=== PATIENT | male | born 1950 | race Caucasian/White ===

== ENCOUNTER → 2016-11-12 | Day surgery (SDC) | payer MEDICARE ==
[2016-11-08 08:51] VITALS: BP 158/61
[~2016-11-12] VITALS: Ht 175.2 cm; Wt 102.1 kg
[~2016-11-12] MED LIST: ADVAIR 250/501 EA INH; ADVAIR DISKUS 11 DSK INH; ATARAX25 MG PO; BYDUREON PEN2 MG SC; CLARITIN10 MG PO; CRESTOR20 M1 PO; D3 PO; DAYPRO600 M1 PO; ESCITALOPRAM OX10 MG PO; FENOFIBRIC ACI105 MG PO; GEMFIBROZIL600 MG PO; GLIPIZIDE XL10 MG PO; GLIPIZIDE XL5 MG PO; GLIPIZIDE5 MG PO; HYDROCHLOROTHIA25 M1 PO; KEFLEX500 MG PO; LANTUS SOLOS100 U/M1 SC; LEVAQUIN750 MG PO; LISINOPRIL10 M1 PO; LOVASTATIN20 MG PO; MEDROL DOSEPAK4 MG PO; METFORMIN ER500 MG PO; METFORMIN1000 MG PO; METOPROLOL SUC100 M1 PO; METOPROLOL SUCC50 MG PO; NOVOLOG FLEX100 U/ML SC; PREDNISONE10 MG PO; PRINIVIL20 MG PO; PROAIR HFA0.09 MG/AC INH; PROAIR HFA8.5 GM INH; PROTONIX40 MG PO; ROBAXIN750 MG PO; ROSUVASTATIN CA40 MG PO; TAMSULOSIN HCL0.4 MG PO; TOUJEO300 U/ML SC; TRAD5TAB1 PO; TRAJENTA PO; TRULICITY1.5 MG/0.5 SC; VICODIN 500 MG-1 TAB PO; VICODIN ES 7501 TAB PO; VITAMIN D50000 I3 PO; ZANTAC 150150 MG PO; ZESTRIL30 M1 PO
--- NOTE | ~2016-11-12 | O ---
[place], [place] OPERATIVE NOTE NAME: THOR WARREN UNIT #: [id number] ROOM: DOCTOR: BUBBA MARION MD BIRTHDATE: [birth year] DOS: 11/12/2016 PREOPERATIVE DIAGNOSIS: Left cheek soft tissue mass. POSTOPERATIVE DIAGNOSIS: Left cheek soft tissue mass. PROCEDURE: Excision of left cheek soft tissue mass. SURGEON: Bubba Marion MD PHOTONICS TECHNICIAN: None. ANESTHESIA: MAC with local approximately 5 mL of 1% plain lidocaine with epinephrine. INDICATIONS: This is a 66-year-old gentleman with a left cheek soft tissue mass, who is here for the above-mentioned procedure. The procedure and its complications were explained to the patient in detail preoperatively. Complications that were discussed included, but were not limited to bleeding and infection. He agreed to proceed. DESCRIPTION OF PROCEDURE: After identifying the patient, the patient was brought to the operating suite and laid in the supine position. After the parts were painted and draped in the usual sterile fashion, IV sedation was administered by the anesthesia team and an elliptical incision was marked in the long axis of the mass. Local anesthesia was injected and the mass was excised in its entirety with the help of a knife and sent for histopathological diagnosis. Hemostasis was achieved with the help of pressure and after hemostasis was confirmed, the edges of the subcutaneous tissue/skin were approximated with the help of 4-0 Vicryl in a subcuticular fashion. A dressing was placed. The patient tolerated the procedure well and was taken to the recovery room in stable fashion. There were no complications. Dr. Bubba Marion, the attending surgeon, was present throughout the operating case. [place], [place] OPERATIVE NOTE NAME: THOR WARREN UNIT #: [id number] ROOM: DOCTOR: BUBBA MARION MD BIRTHDATE: [birth year] Bubba Marion MD CM:OPRECORD:OPERATIVE NOTE [id number] BUBBA MARION MD 11/12/16 0852 interface
[2016-11-12 07:35] VITALS: BP 162/92
[2016-11-12 08:02] VITALS: BP 132/84
[2016-11-12 08:15] VITALS: BP 113/80
[2016-11-12 08:42] VITALS: BP 132/78
== END | disposition home or self-care (01) ==
LOC: SDC 11-08 08:45
DX: L82.1 Other seborrheic keratosis (principal); E78.00 Pure hypercholesterolemia, unspecified; J45.909 Unspecified asthma, uncomplicated; I12.9 Hypertensive chronic kidney disease with stage 1 through stage 4 chronic kidney disease, or unspecified chronic kidney disease; E11.22 Type 2 diabetes mellitus with diabetic chronic kidney disease; N18.3 Chronic kidney disease, stage 3 (moderate); Z79.4 Long term (current) use of insulin; Z83.3 Family history of diabetes mellitus; Z82.49 Family history of ischemic heart disease and other diseases of the circulatory system

== ENCOUNTER → 2016-11-14 | Outpatient (CLI) | payer MEDICARE | END | disposition home or self-care (01) | LOC: CT 07:34 | DX: J44.9 Chronic obstructive pulmonary disease, unspecified (principal); R91.1 Solitary pulmonary nodule; R05 Cough; R06.02 Shortness of breath ==

== ENCOUNTER → 2016-11-30 | Outpatient (CLI) | payer MEDICARE ==
[2016-11-30 12:20] LABS: BASO # 0.1 10*3/uL (0.0-0.1); EOS # 0.3 10*3/uL (0.0-0.4); HEMATOCRIT 39.5 % (42.0-52.0); HEMOGLOBIN 13.3 g/dl (14.0-18.0); IG # 0.1 10*3/uL (0.0-0.1); LYMPH # 2.4 10*3/uL (1.3-4.4); LYMPH % 21.5 % (27.0-41.0); MEAN CELL VOLUME 92.3 fl (80.0-94.0); MEAN CORPUSCULAR HGB 31.1 pg (27.0-31.0); MEAN CORPUSCULAR HGB CONC 33.7 g/dl (33.0-37.0); MEAN PLATELET VOLUME 9.2 fl (9.6-12.3); MONO % 8.8 % (3.0-9.0); NEUT # 7.4 10*3/uL (2.3-7.9); NEUT % 65.3 % (47.0-73.0); PLATELET COUNT AUTOMATED 316 10*3/uL (130-400); RED BLOOD COUNT 4.28 10*6/uL (4.50-5.90); RED CELL DISTRI WIDTH 12.4 % (0-14.5); WHITE BLOOD COUNT 11.4 10*3/uL (4.8-10.8)
[2016-11-30 12:27] LABS: ALBUMIN 3.5 gm/dl (3.1-4.5); BILIRUBIN, TOTAL 0.2 mg/dl (0.2-1.0); MAGNESIUM 1.8 mg/dL (1.5-2.1); PHOSPHOROUS 2.8 mg/dL (2.5-4.9); POTASSIUM 4.4 mmol/L (3.5-5.1); TOTAL PROTEIN 6.9 gm/dL (6.4-8.2)
[2016-11-30 13:07] LABS: FERRITIN 55.9 ng/mL (22.0-322.0); PTH INTACT 13.1 pg/mL (14.0-72.0)
== END | disposition home or self-care (01) ==
LOC: LAB 11:32
PROVIDERS: Internal Medicine Nephrology
DX: I12.9 Hypertensive chronic kidney disease with stage 1 through stage 4 chronic kidney disease, or unspecified chronic kidney disease (principal); E11.22 Type 2 diabetes mellitus with diabetic chronic kidney disease; E11.65 Type 2 diabetes mellitus with hyperglycemia; N18.3 Chronic kidney disease, stage 3 (moderate); D63.1 Anemia in chronic kidney disease

== ENCOUNTER → 2016-12-17 | Outpatient (CLI) | payer MEDICARE | END | disposition home or self-care (01) | LOC: RAD 17:07 | DX: J44.9 Chronic obstructive pulmonary disease, unspecified (principal); R06.02 Shortness of breath; R05 Cough ==

== ENCOUNTER 2016-12-27 21:39 | Inpatient (IN) | payer MEDICARE ==
[~2016-12-27] VITALS: Ht 175.3 cm; Wt 101.6 kg
--- NOTE | ~2016-12-27 | PR ---
[place], [place] PROGRESS NOTE NAME: THOR WARREN UNIT #: [id number] ROOM: 415 DOCTOR: KRISTINE MÁRQUEZ MD,MARLENE BIRTHDATE: [birth year] DOS: 01/03/2017 PULMONARY PROGRESS SUBJECTIVE: He has a bronchoscopy done yesterday with marked improvement in the respiratory symptom noted with resolution of the cough significantly, acute wheezing was noted absent. Shortness of breath has been improving. OBJECTIVE: VITAL SIGNS: Showed normal temperature, respiratory rate 18, heart rate 107, blood pressure 152/85-153/88. The pulse oxygen saturation of the patient on 2 liters nasal cannula 98% saturation. HEENT: Examination shows no new change. NECK: Supple. CARDIOVASCULAR SYSTEM: S1, S2 is audible. LUNGS: The patient was noted without any wheezing or crackles at the present time. ABDOMEN: Soft and nontender. LABORATORY DATA: CBC this morning: WBC 23.4, hemoglobin 13.3, hematocrit 39.1, platelet count normal. WBC count normal. BMP: BUN 50, creatinine 1.82. The culture of the bronchial washing shows moderate growth of gram-positive cocci. The Gram stain shows moderate white blood cells with many gram-positive cocci in pairs and chains with few gram-negative bacilli. The patient who has been currently noted with isolation of moderate gram-positive cocci. IMPRESSION: The patient with acute exacerbation of chronic obstructive pulmonary disease. The patient with acute tracheobronchitis, leukocytosis, rule out methicillin-resistant Staphylococcus aureus for this patient versus streptococcal pneumonia isolation with current bronchial washing; however, improvement in symptoms has been noted after bronchoscopy. PLAN OF TREATMENT: The patient will be started on IV vancomycin for the patient because of the current cultures. Initially, he was planned for possible discharge home for this patient, which will be hold off for this patient because of current new culture results, which has been updated by the microbiology lab. We assessed the CBC in the morning. Reduction of the Solu-Medrol dose for this patient as well. Usual care. All other supportive plan of management and other care. Bronchodilators. Continuation of the Bactrim DS, which has been given for the patient previously for the Staph aureus, which was isolated light growth. [place], [place] PROGRESS NOTE NAME: THOR WARREN UNIT #: [id number] ROOM: [facility] DOCTOR: MARLENE NORMAN MD BIRTHDATE: [birth year] MARLENE CARMONA MD CM:PNTRANS [phone] [id number] MARLENE MÁRQUEZ MD 01/03/172223 interface
--- NOTE | ~2016-12-27 | CON ---
[place], [place] REPORT OF CONSULTATION NAME: THOR WARREN UNIT #: [id number] ROOM: 415 DOCTOR: MARLENE NORMAN MD BIRTHDATE: [birth year] DOS: 12/31/2016 CONSULTATION REQUESTED BY: Hospitalist Services. REASON FOR CONSULTATION: Assessment of COPD. HISTORY OF PRESENT ILLNESS: A 66-year-old white male who has been hospitalized since 12/27/2016 in this hospital. The patient presented to the Emergency Room, reported with having symptoms of increased shortness of breath associated significant cough. The symptoms have been present for 3 months or greater, but noted with further worsening for the patient in few days prior to assessment in the Emergency Room. Coughing has been noted mostly nonproductive. The patient was reported symptoms of wheezing. The patient does have only small amount of sputum expectoration at times with that. Wheezing of the patient was also noted significantly severe. He was noted tightness in the chest as well. Shortness of breath occurs with exertional activities. The patient denies any symptoms of hemoptysis with that. Denies any chest trauma. REVIEW OF SYSTEMS: CONSTITUTIONAL: Complain of fatigue and tiredness. There were no symptoms of fever or chills. EYES: Denies any burning, redness, or tenderness. EARS, NOSE, THROAT SYMPTOMS: No sore throat, hoarseness, otalgia, postnasal drainage. CARDIOVASCULAR: Denies anginal pain, edema of the lower extremities or palpitations or syncopal episodes. GASTROINTESTINAL: Dysphagia, nausea, vomiting, diarrhea, abdominal pain, hematemesis, melena, hematochezia. SKIN: Denies lesions or rashes. CENTRAL NERVOUS SYSTEM: Denies symptoms of dizziness, headache, diplopia or seizures. Remaining systems were reviewed with the patient, they were noted all negative. PAST MEDICAL HISTORY: 1. Has been reported for COPD managed by another sagger maker in [place], [place]. 2. History of chronic kidney disease. 3. Essential hypertension. 4. Hyperlipidemia. 5. Type 2 diabetes mellitus. 6. History of obesity. PAST SURGICAL HISTORY: 1. Hernia repair. 2. Surgery of the colon. Details were not clearly known by the patient. SOCIAL HISTORY: The patient was noted nonsmoker lifetime. Denies history of alcohol use, illicit drug use for this patient as well or any occupation related pulmonary exposure. FAMILY HISTORY: The patient's both parents have been . Father at [place], [place] REPORT OF CONSULTATION NAME: THOR WARREN UNIT #: [id number] ROOM: [facility] DOCTOR: MARLENE NORMAN MD BIRTHDATE: [birth year] the age of [age] years old from unknown medical illnesses. The mother at the age of 60+ years old from acute myocardial infarction. HOME MEDICATIONS: Noted. 1. ProAir HFA inhaler p.r.n. use. 2. Norvasc 10 mg. 3. Benazepril 20 mg once a day. 4. Vitamin D 5000 international units daily. 5. Lexapro for this patient 10 mg daily. 6. Fenofibric acid 105 mg p.o. daily. 7. Advair 100/50 one puff daily. 8. Gemfibrozil 600 mg p.o. daily. 9. Glipizide 5 mg p.o. b.i.d. 10. Lisinopril 10 mg daily. 11. Metoprolol succinate 100 mg p.o. daily. 12. Protonix 40 mg daily. 13. Lipitor 40 mg daily. 14. Flomax 0.4 mg daily. DRUG ALLERGIES: The patient noted as allergy to the IODINE. PHYSICAL EXAMINATION: GENERAL: This is a 66-year-old white male who has been noted currently awake and alert without any distress at time of the assessment. VITAL SIGNS: Height is noted 5 feet 9 inches, weight of 224 pounds. Vital signs shows a normal temperature, respiratory rate 20-16, heart rate of 91-102, blood pressure is 153/96 144/90. The pulse oxygen saturation for the patient recorded on 2 liters nasal cannula 95% saturation. HEENT: Examination shows head is atraumatic. Eyes nonicterus. NECK: Supple. CARDIOVASCULAR: S1, S2 audible. LUNGS: Noted with diffuse expiratory wheezing moderately. There are no crackles. ABDOMEN: Soft, nontender. Bowel sounds present. CENTRAL NERVOUS SYSTEM: The patient is noted without any gross focal deficit. Cranial nerves 2 through 12 intact. SKIN: No lesions or rashes. MUSCULOSKELETAL: No acute deformities. LABORATORY DATA: The alpha 1 antitrypsin level of the patient was noted as 140. The phenotype of the patient was unknown. Histoplasma antigen was noted negative, which was done as an outpatient. CBC of the patient on 12/27/2016 for the patient noted as WBC count 15.3, hemoglobin 13.2, hematocrit 39.5, platelet count was normal. Lactic acid noted 3.9 on admission, 12/27/2016. On 12/27/2016, PT, PTT was normal. CMP on 12/27/2016, the patient noted glucose 228, BUN 23, creatinine 1.88 for this patient on admission. The followup lactic acid was noted as 2.4. CBC that was repeated for the patient on 12/29/2016 showed WBC count 18.8, hemoglobin 12.7, hematocrit of 38.6, platelet count was normal. BMP of the patient, BUN 29, creatinine 1.59, glucose 232. Blood culture from 12/27/2016 for the patient to assess the patient was reported as no [place], [place] REPORT OF CONSULTATION NAME: THOR WARREN UNIT #: [id number] ROOM: [facility] DOCTOR: KRISTINE MÁRQUEZ [facility] BIRTHDATE: [birth year] bacterial growth. Final culture results were pending. CBC of the patient on 12/30/2016 showed WBC count 16.6, hemoglobin 13.2, hematocrit 40.6, platelet count for the patient was noted as normal. The CMP of the patient on 12/30/2016, BUN 33, creatinine 1.63, glucose 267. Culture of the sputum on 12/29/2016, the patient shows Staph aureus isolation only light growth. CMP of the patient this morning, BUN 39, creatinine 1.64, glucose 194. CBC this morning, WBC count 17.7, 92% segmented neutrophils noted differential, normal hemoglobin and hematocrit and platelet count. IMPRESSION: 1. The patient who has been currently admitted to the hospital noted with acute severe tracheobronchitis with chronic symptom and acute worsening at this time with the Staph aureus isolated with possible colonization was due to infection has been considered. 2. The patient's signs of acute sepsis noted. The patient's lactic acidosis on admission most likely secondary to acute bronchitis. There were no other source of infection is known. Blood culture was noted negative. 3. Persistent symptoms of coughing, wheezing noted with current maximum therapy for the past 4 days for this patient of treatment with the use of corticosteroids, bronchodilators, and other treatment of the patient was noted in progress. 4. History of diabetes mellitus of the patient was noted as well and other medical illnesses. PLAN OF TREATMENT: The patient was recommended the fiberoptic bronchoscopy for further assessment because the mucous infection is considered very likely for this patient because of chronic symptoms were recurrent with acute exacerbation. Risk and benefits of the procedure have been discussed with the patient. Based on the availability of the schedule in the OR, the procedure was scheduled to be done on Saturday. The patient will be made n.p.o. past midnight for bronchoscopy from Saturday midnight. Other treatment therapy, plan of management including steroids and all other treatment will be continued as well in progress. Supportive care and other therapies. Thanks for allowing me to participate in the care of this patient. MARLENE CARMONA MD CM:CONSTR:REPORT OF CONSULTATION 1157 01/01/17 0219 interface
--- NOTE | ~2016-12-27 | EKG ---
[place], [place] ELECTROCARDIOGRAM REPORT NAME: THOR WARREN UNIT #: [id number] ROOM: 415 DOCTOR: RANJAN VAZQUEZ MD BIRTHDATE: [birth year] DOS: 12/27/2016 TIME: 2213. FINDINGS: Sinus tachycardia with rate of 123. Left ventricular hypertrophy with secondary ST changes, leftward axis. Abnormal electrocardiogram. RANJAN VAZQUEZ MD CM:EKGRPT:ELECTROCARDIOGRAM REPORT [id number] RANJAN VAZQUEZ MD
--- NOTE | ~2016-12-27 | PR ---
[place], [place] PROGRESS NOTE NAME: THOR WARREN UNIT #: [id number] ROOM: 415 DOCTOR: KRISTINE MÁRQUEZ MD,MARLENE BIRTHDATE: [birth year] DOS: 01/02/2017 PULMONARY PROGRESS NOTE SUBJECTIVE: The patient has been noted comfortable at the present time without any changes in the respiratory status. Coughing has been noted severe which is nonproductive. The patient stated that he had a horrible night last night because of severe coughing, inability to expectorate sputum. Denies symptoms of chest pain or any abdominal pain. Shortness of breath, wheezing was still described intermittently. OBJECTIVE: VITAL SIGNS: Shows normal temperature, respiratory rate 18, heart rate of 87, blood pressure 127/59. The pulse oxygen saturation recorded on 2 liters nasal cannula 99% saturation. HEENT: No acute change. NECK: Supple. CARDIOVASCULAR: S1, S2 audible. LUNGS: The patient was noted with expiratory wheezing with moderate reduction in breath sounds bilaterally. ABDOMEN: Soft, nontender. EXTREMITIES: Show no edema. LABORATORY DATA: There were no labs done today. IMPRESSION: Ongoing acute exacerbation of chronic obstructive pulmonary disease, remains symptomatic with severe nonproductive cough. For bronchoscopy today, patient already noted n.p.o. for bronchoscopy. PLAN OF TREATMENT: Bronchoscopy will be done for the patient, any changes and modification in treatment if necessary will be done after bronchoscopy. Otherwise, all the previous treatment to be continued as well. MARLENE CARMONA MD CM:PNTRANS 1105 MARLENE MÁRQUEZ MD 01/03/17 0048 interface
--- NOTE | ~2016-12-27 | PR ---
[place], [place] PROGRESS NOTE NAME: THOR WARREN UNIT #: [id number] ROOM: 415 DOCTOR: KRISTINE MÁRQUEZ MD,MARLENE BIRTHDATE: [birth year] DOS: 01/01/2017 SUBJECTIVE: He continued with similar symptoms of nonproductive cough with wheezing and shortness of breath with exertion. The patient did fell in his room this morning as well. Denies any acute injury for this patient to the bones. He was noted awake and alert this morning at the time of the assessment. OBJECTIVE: VITAL SIGNS: Normal temperature, respiratory rate 20, heart rate 105, blood pressure 151/87. The pulse oxygen saturation for the patient recorded on 2 L nasal cannula 94% saturation. HEENT: Showed no new change. NECK: Supple. CARDIOVASCULAR: S1, S2 audible. LUNGS: Decreased breath sounds in the lungs bilaterally, expiratory wheezing. ABDOMEN: Soft, nontender. LABORATORY DATA: The patient's CBC today: WBC count 17.8. Remaining CBC normal, 92% segmented neutrophils noted on differential. BMP today: BUN 41, creatinine 1.58, glucose 190. IMPRESSION: The patient who has been currently treated for acute exacerbation of chronic obstructive pulmonary disease, acute tracheobronchitis at this time, status post fall for the patient without any known significant injury. PLAN OF TREATMENT: Bronchoscopy was planned to be done in the morning. The other previous treatment plan to be continued previously in progress. Usual care. All other supportive therapy, plan of management. MARLENE CARMONA MD CM:PNTRANS [id number] MARLENE MÁRQUEZ MD 01/02/17 0620 interface
--- NOTE | ~2016-12-27 | PR ---
[place], [place] PROGRESS NOTE NAME: THOR WARREN UNIT #: [id number] ROOM: 415 DOCTOR: MARLENE NORMAN MD BIRTHDATE: [birth year] DOS: 01/04/2017 PULMONARY PROGRESS NOTE SUBJECTIVE: He continues to have progressive resolution of the cough. The patient was started on vancomycin yesterday for the gram-positive cocci isolation, which has been finally confirmed to be Staph aureus, which is MSSA species. It was noted sensitive to several antibiotics including doxycycline. OBJECTIVE: VITAL SIGNS: For the patient which were recorded showed normal temperature, respiratory rate 18, heart rate of 108, blood pressure 152/80. Intake for the patient recorded as 1999, the output was not recorded. Pulse oxygen saturation on room air 96% saturation noted. HEENT: No new change. NECK: Supple. CARDIOVASCULAR: S1, S2 audible. LUNGS: The patient was noted without any wheezing or crackles at the present time. Breath sounds were noted mildly decreased bilaterally. ABDOMEN: Soft, nontender. LABORATORY DATA: CBC today: WBC count 20.3, hemoglobin and hematocrit were normal. Platelet count normal. The differential showed 13% monocytes, 25% lymphocytes. BMP this morning noted BUN 45, creatinine 1.73. IMPRESSION: Staphylococcus aureus tracheobronchitis with leukocytosis, acute exacerbation of chronic obstructive pulmonary disease, responding to the treatment. PLAN OF TREATMENT: The patient will be started on doxycycline orally. After taking the first dose, if tolerated, he could be discharged home on doxycycline orally as well as tapering dose of prednisone, outpatient followup will be done. Other previous treatment to be continued as well. Usual care. All other supportive therapy, plan of management and care. [place], [place] PROGRESS NOTE NAME: THOR WARREN UNIT #: [id number] ROOM: 415 DOCTOR: MARLENE NORMAN MD BIRTHDATE: [birth year] MARLENE CARMONA MD CM:PNTRANS [phone] MARLENE MÁRQUEZ MD 01/05/17 0258 interface
--- NOTE | ~2016-12-27 | PROC NOTE ---
[place], [place] PROCEDURE NOTE NAME: THOR WARREN UNIT #: [id number] ROOM: 415 DOCTOR: KRISTINE MÁRQUEZ MD,MARLENE BIRTHDATE: [birth year] DOS: 01/02/2017 PROCEDURE: Bronchoscopy. PREOPERATIVE DIAGNOSIS: Severe nonproductive cough, nonresolving. POSTOPERATIVE DIAGNOSES: Severe mucus plugs of the patient causing impaction of the endobronchial tree bilaterally, cleared up. Findings consistent with acute tracheobronchitis. PROCEDURE DESCRIPTION: Informed consent obtained. The patient brought to the OR and placed in supine position. Conscious sedation administered by the Anesthesia Department. After achieving appropriate sedation, airway introduced into the mouth. Bronchoscope advanced into the airway into laryngeal area. Epiglottis and vocal cords were seen. Vocal cords were noted yellowish in color moving symmetrically with the movements. Bronchoscope advanced to the vocal cord and tracheal lumen, which shows very thick mucoid secretion mixed with some purulent secretions suctioned out to the latanya level. Latanya noted sharp. Right upper, right middle, right lower, left upper, lingular lower lobe bronchi were all noted with impaction of very thick mucus plugs for this patient, which were cleared up with the help of normal saline wash. Bronchial washing of the patient was sent for all the appropriate cultures. The endobronchial tree was noted clear of any secretions after the completion of bronchoscopy. There were no complications noted during or after procedure. Postoperative findings will be discussed with the patient once the patient recovers the effects of acute sedation. MARLENE CARMONA MD CM:PROCNOTE:PROCEDURE NOTE 1108 [id number] MARLENE MÁRQUEZ MD
[2016-12-27 21:48] VITALS: BP 123/80
[2016-12-27] MEDS ORDERED: VITAMIN D34000 UNIT PO (21:50)
[2016-12-27] MEDS ORDERED: AMLODIPINE BES1 CAP PO (21:51)
[2016-12-27 22:23] LABS: BASO # 0.1 10*3/uL (0.0-0.1); BASO % 0.4 % (0.0-1.0); EOS % 0.1 % (1.0-4.0); HEMATOCRIT 39.5 % (42.0-52.0); HEMOGLOBIN 13.2 g/dl (14.0-18.0); IG # 0.1 10*3/uL (0.0-0.1); LYMPH # 2.2 10*3/uL (1.3-4.4); LYMPH % 14.3 % (27.0-41.0); MEAN CELL VOLUME 90.8 fl (80.0-94.0); MEAN CORPUSCULAR HGB 30.3 pg (27.0-31.0); MEAN CORPUSCULAR HGB CONC 33.4 g/dl (33.0-37.0); MEAN PLATELET VOLUME 9.3 fl (9.6-12.3); MONO # 1.1 10*3/uL (0.1-1.0); MONO % 7.1 % (3.0-9.0); NEUT # 11.8 10*3/uL (2.3-7.9); NEUT % 77.3 % (47.0-73.0); PLATELET COUNT AUTOMATED 370 10*3/uL (130-400); RED BLOOD COUNT 4.35 10*6/uL (4.50-5.90); RED CELL DISTRI WIDTH 12.8 % (0-14.5); WHITE BLOOD COUNT 15.3 10*3/uL (4.8-10.8)
[2016-12-27 22:34] LABS: INTERNATIONAL NORM RATIO 1.1 (2.0-3.5); PROTHROMBIN TIME 11.7 SECONDS (9.0-12.4)
[2016-12-27 22:42] LABS: ALBUMIN 3.6 gm/dl (3.1-4.5); ALKALINE PHOSPHATASE 60 U/L (45-117); BILIRUBIN, TOTAL 0.3 mg/dl (0.2-1.0); BUN 23 mg/dl (7-24); CARBON DIOXIDE 24 mmol/L (21-32); CHLORIDE 106 mmol/L (98-107); EST GLOM FILT AFRICAN AMERICAN 44 ml/min; GLUCOSE 228 mg/dL (65-99); MAGNESIUM 1.4 mg/dL (1.5-2.1); POTASSIUM 4.1 mmol/L (3.5-5.1); SGOT/AST 18 IU/L (3-35); SGPT/ALT 39 U/L (12-78); SODIUM 140 mmol/L (136-145); TOTAL PROTEIN 7.5 gm/dL (6.4-8.2)
[2016-12-27 22:47] LABS: TROPONIN I < 0.015 ng/ml (<0.045)
[2016-12-27 23:36] VITALS: BP 140/85
[2016-12-28 00:20] LABS: LA>2 REFLEX 2 HR DRAW NOW
[2016-12-28 00:30] VITALS: BP 166/81
[2016-12-28 00:42] LABS: LA>2 RFLX FOLLOW UP AT 2 HRS 2.4 mmol/L (0.4-2.0)
[2016-12-28] MEDS ORDERED: BENZONATATE100 M1 PO (02:12)
[2016-12-28] MEDS ORDERED: DUONEB 3 MG/3 ML3 M1 INH (02:15)
[2016-12-28 02:33] LABS: LA>2 REFLEX 4 HR DRAW NOW
[2016-12-28 06:25] LABS: HEMATOCRIT 37.4 % (42.0-52.0); HEMOGLOBIN 12.4 g/dl (14.0-18.0); MEAN CELL VOLUME 91.4 fl (80.0-94.0); MEAN CORPUSCULAR HGB 30.3 pg (27.0-31.0); MEAN CORPUSCULAR HGB CONC 33.2 g/dl (33.0-37.0); MEAN PLATELET VOLUME 9.5 fl (9.6-12.3); PLATELET COUNT AUTOMATED 325 10*3/uL (130-400); RED BLOOD COUNT 4.09 10*6/uL (4.50-5.90); RED CELL DISTRI WIDTH 12.9 % (0-14.5); WHITE BLOOD COUNT 15.2 10*3/uL (4.8-10.8)
[2016-12-28 06:57] LABS: INTERNATIONAL NORM RATIO 1.1 (2.0-3.5)
[2016-12-28 07:07] LABS: ALBUMIN 3.4 gm/dl (3.1-4.5); BILIRUBIN, TOTAL 0.3 mg/dl (0.2-1.0); MAGNESIUM 1.5 mg/dL (1.5-2.1); PHOSPHOROUS 1.9 mg/dL (2.5-4.9); POTASSIUM 4.2 mmol/L (3.5-5.1); TOTAL PROTEIN 7.1 gm/dL (6.4-8.2)
[2016-12-28 07:13] LABS: LYMPHOCYTE # 0.8 10*3/uL (1.3-4.4); NEUTROPHIL # 14.4 10*3/uL (2.3-7.9); NEUTROPHILS 95 % (47-73); TOTAL CELLS COUNTED 100 #CELLS
[2016-12-28 07:14] LABS: FREE T4 0.94 ng/dl (0.76-1.46); PLATELET SUFFICIENCY NORMAL (NORMAL); THYROID STIM HORMONE (HS) 0.57 uIU/ml (0.358-4.75)
[2016-12-28 08:00] VITALS: BP 154/85
[2016-12-28 12:00] VITALS: BP 174/88
[2016-12-28 16:00] VITALS: BP 118/68; BP 167/88
[2016-12-28 20:00] VITALS: BP 172/98
[2016-12-29] VITALS: BP 170/77
[2016-12-29 06:59] LABS: BASO % 0.2 % (0.0-1.0); HEMATOCRIT 38.6 % (42.0-52.0); HEMOGLOBIN 12.7 g/dl (14.0-18.0); IG # 0.2 10*3/uL (0.0-0.1); LYMPH # 1.5 10*3/uL (1.3-4.4); LYMPH % 7.8 % (27.0-41.0); MEAN CELL VOLUME 94.1 fl (80.0-94.0); MEAN CORPUSCULAR HGB CONC 32.9 g/dl (33.0-37.0); MEAN PLATELET VOLUME 9.4 fl (9.6-12.3); MONO # 0.6 10*3/uL (0.1-1.0); MONO % 3.4 % (3.0-9.0); NEUT # 16.5 10*3/uL (2.3-7.9); NEUT % 87.5 % (47.0-73.0); PLATELET COUNT AUTOMATED 349 10*3/uL (130-400); WHITE BLOOD COUNT 18.8 10*3/uL (4.8-10.8)
[2016-12-29 07:36] LABS: POTASSIUM 4.7 mmol/L (3.5-5.1)
[2016-12-29 08:00] VITALS: BP 166/93
[2016-12-29 12:00] VITALS: BP 139/90
[2016-12-29 16:00] VITALS: BP 155/84
[2016-12-29 20:42] VITALS: BP 148/68
[2016-12-29 23:49] VITALS: BP 148/64
[2016-12-30] VITALS (7 sets, daily range): BP systolic 136–188; BP diastolic 73–108
[2016-12-30 06:28] LABS: BASO % 0.2 % (0.0-1.0); HEMATOCRIT 40.6 % (42.0-52.0); HEMOGLOBIN 13.2 g/dl (14.0-18.0); IG # 0.3 10*3/uL (0.0-0.1); LYMPH # 1.2 10*3/uL (1.3-4.4); LYMPH % 7.1 % (27.0-41.0); MEAN CELL VOLUME 93.1 fl (80.0-94.0); MEAN CORPUSCULAR HGB 30.3 pg (27.0-31.0); MEAN CORPUSCULAR HGB CONC 32.5 g/dl (33.0-37.0); MEAN PLATELET VOLUME 9.6 fl (9.6-12.3); MONO # 0.4 10*3/uL (0.1-1.0); MONO % 2.4 % (3.0-9.0); NEUT # 14.7 10*3/uL (2.3-7.9); NEUT % 88.7 % (47.0-73.0); PLATELET COUNT AUTOMATED 355 10*3/uL (130-400); RED BLOOD COUNT 4.36 10*6/uL (4.50-5.90); RED CELL DISTRI WIDTH 12.8 % (0-14.5); WHITE BLOOD COUNT 16.6 10*3/uL (4.8-10.8)
[2016-12-30 07:00] LABS: ALBUMIN 3.5 gm/dl (3.1-4.5); POTASSIUM 4.9 mmol/L (3.5-5.1)
[2016-12-30 07:05] LABS: BILIRUBIN, TOTAL 0.3 mg/dl (0.2-1.0); TOTAL PROTEIN 7.2 gm/dL (6.4-8.2)
[2016-12-31 00:30] VITALS: BP 168/88
[2016-12-31 05:00] VITALS: BP 144/90
[2016-12-31 06:09] LABS: HEMATOCRIT 42.6 % (42.0-52.0); HEMOGLOBIN 14.2 g/dl (14.0-18.0); MEAN CELL VOLUME 91.6 fl (80.0-94.0); MEAN CORPUSCULAR HGB 30.5 pg (27.0-31.0); MEAN CORPUSCULAR HGB CONC 33.3 g/dl (33.0-37.0); MEAN PLATELET VOLUME 9.6 fl (9.6-12.3); PLATELET COUNT AUTOMATED 389 10*3/uL (130-400); RED BLOOD COUNT 4.65 10*6/uL (4.50-5.90); RED CELL DISTRI WIDTH 12.7 % (0-14.5); WHITE BLOOD COUNT 17.7 10*3/uL (4.8-10.8)
[2016-12-31 06:40] LABS: POTASSIUM 5.1 mmol/L (3.5-5.1)
[2016-12-31 06:47] LABS: ALBUMIN 3.6 gm/dl (3.1-4.5); BILIRUBIN, TOTAL 0.4 mg/dl (0.2-1.0); TOTAL PROTEIN 7.1 gm/dL (6.4-8.2)
[2016-12-31 06:51] LABS: LYMPHOCYTE # 1.1 10*3/uL (1.3-4.4); MONOCYTE # 0.4 10*3/uL (0.1-1.0); NEUTROPHIL # 16.3 10*3/uL (2.3-7.9); NEUTROPHILS 92 % (47-73); TOTAL CELLS COUNTED 100 #CELLS
[2016-12-31 06:53] LABS: PLATELET SUFFICIENCY NORMAL (NORMAL)
[2016-12-31 08:00] VITALS: BP 153/96
[2016-12-31 12:00] VITALS: BP 141/85
[2016-12-31 16:00] VITALS: BP 140/86
[2016-12-31 20:00] VITALS: BP 162/95
[2017-01-01 00:38] VITALS: BP 142/92
[2017-01-01 04:00] VITALS: BP 126/91
[2017-01-01 05:58] LABS: ALBUMIN 3.2 gm/dl (3.1-4.5); POTASSIUM 4.6 mmol/L (3.5-5.1)
[2017-01-01 06:17] LABS: HEMOGLOBIN 14.2 g/dl (14.0-18.0); MEAN CELL VOLUME 90.7 fl (80.0-94.0); MEAN CORPUSCULAR HGB 30.7 pg (27.0-31.0); MEAN CORPUSCULAR HGB CONC 33.8 g/dl (33.0-37.0); MEAN PLATELET VOLUME 9.5 fl (9.6-12.3); PLATELET COUNT AUTOMATED 387 10*3/uL (130-400); RED BLOOD COUNT 4.63 10*6/uL (4.50-5.90); RED CELL DISTRI WIDTH 12.2 % (0-14.5); WHITE BLOOD COUNT 17.8 10*3/uL (4.8-10.8)
[2017-01-01 07:01] LABS: LYMPHOCYTE # 0.7 10*3/uL (1.3-4.4); METAMYELOCYTES 1 % (0-0); MONOCYTE # 0.5 10*3/uL (0.1-1.0); NEUTROPHIL # 16.4 10*3/uL (2.3-7.9); NEUTROPHILS 92 % (47-73); TOTAL CELLS COUNTED 100 #CELLS
[2017-01-01 07:02] LABS: PLATELET SUFFICIENCY NORMAL (NORMAL)
[2017-01-01 08:00] VITALS: BP 151/87
[2017-01-01 12:00] VITALS: BP 150/91
[2017-01-01 15:55] VITALS: BP 160/91
[2017-01-01 20:00] VITALS: BP 152/79
[2017-01-02] VITALS (9 sets, daily range): BP systolic 118–160; BP diastolic 75–97
[2017-01-03] VITALS: BP 150/100
[2017-01-03 01:21] VITALS: BP 142/84
[2017-01-03 05:59] LABS: POTASSIUM 4.4 mmol/L (3.5-5.1)
[2017-01-03 06:03] LABS: HEMATOCRIT 39.1 % (42.0-52.0); HEMOGLOBIN 13.3 g/dl (14.0-18.0); MEAN CELL VOLUME 89.7 fl (80.0-94.0); MEAN CORPUSCULAR HGB 30.5 pg (27.0-31.0); MEAN PLATELET VOLUME 9.9 fl (9.6-12.3); PLATELET COUNT AUTOMATED 296 10*3/uL (130-400); RED BLOOD COUNT 4.36 10*6/uL (4.50-5.90); RED CELL DISTRI WIDTH 12.2 % (0-14.5); WHITE BLOOD COUNT 23.4 10*3/uL (4.8-10.8)
[2017-01-03 07:04] LABS: LYMPHOCYTE # 3.3 10*3/uL (1.3-4.4); MONOCYTE # 1.6 10*3/uL (0.1-1.0); NEUTROPHIL # 18.5 10*3/uL (2.3-7.9); NEUTROPHILS 79 % (47-73); TOTAL CELLS COUNTED 100 #CELLS
[2017-01-03 07:05] LABS: PLATELET SUFFICIENCY NORMAL (NORMAL)
[2017-01-03 08:00] VITALS: BP 153/88
[2017-01-03 12:00] VITALS: BP 152/85
[2017-01-03 16:00] VITALS: BP 145/90
[2017-01-03 18:10] LABS: ACID FAST SPEC PROCESSING Concentration (.)
[2017-01-03 20:00] VITALS: BP 152/78
[2017-01-04] VITALS: BP 153/84
[2017-01-04 05:43] LABS: POTASSIUM 4.6 mmol/L (3.5-5.1)
[2017-01-04 05:52] LABS: HEMATOCRIT 43.1 % (42.0-52.0); HEMOGLOBIN 14.6 g/dl (14.0-18.0); MEAN CELL VOLUME 90.2 fl (80.0-94.0); MEAN CORPUSCULAR HGB 30.5 pg (27.0-31.0); MEAN CORPUSCULAR HGB CONC 33.9 g/dl (33.0-37.0); PLATELET COUNT AUTOMATED 301 10*3/uL (130-400); RED BLOOD COUNT 4.78 10*6/uL (4.50-5.90); RED CELL DISTRI WIDTH 12.5 % (0-14.5); WHITE BLOOD COUNT 20.3 10*3/uL (4.8-10.8)
[2017-01-04 06:29] LABS: LYMPHOCYTE # 5.1 10*3/uL (1.3-4.4); METAMYELOCYTES 1 % (0-0); MONOCYTE # 2.6 10*3/uL (0.1-1.0); NEUTROPHIL # 12.4 10*3/uL (2.3-7.9); NEUTROPHILS 61 % (47-73); TOTAL CELLS COUNTED 100 #CELLS
[2017-01-04 06:30] LABS: PLATELET SUFFICIENCY NORMAL (NORMAL)
[2017-01-04 08:00] VITALS: BP 134/92
[2017-01-04] MEDS ORDERED: DOXYCYCLINE100 M3 PO (09:53)
[2017-01-04] MEDS ORDERED: PREDNISONE10 MG PO (09:54)
[2017-01-04 12:00] VITALS: BP 152/80
== END 2017-01-04 14:00 | disposition home or self-care (01) | DRG 871 ==
LOC: ED 21:39 → EDHOLD 23:25 → 4E 23:25
PROVIDERS: Family Medicine; Internal Medicine; Internal Medicine Critical Care Medicine; Student in an Organized Health Care Education/Training Program
PROC: 0BC28ZZ Extirpation of Matter from Carina, Via Natural or Artificial Opening Endoscopic (ICD-10-PCS; principal; 2017-01-02)
PROC: 0BC98ZZ Extirpation of Matter from Lingula Bronchus, Via Natural or Artificial Opening Endoscopic (ICD-10-PCS; 2017-01-02)
PROC: 0BC88ZZ Extirpation of Matter from Left Upper Lobe Bronchus, Via Natural or Artificial Opening Endoscopic (ICD-10-PCS; 2017-01-02)
PROC: 0BC68ZZ Extirpation of Matter from Right Lower Lobe Bronchus, Via Natural or Artificial Opening Endoscopic (ICD-10-PCS; 2017-01-02)
PROC: 0BC58ZZ Extirpation of Matter from Right Middle Lobe Bronchus, Via Natural or Artificial Opening Endoscopic (ICD-10-PCS; 2017-01-02)
PROC: 0BC48ZZ Extirpation of Matter from Right Upper Lobe Bronchus, Via Natural or Artificial Opening Endoscopic (ICD-10-PCS; 2017-01-02)
DX: A41.9 Sepsis, unspecified organism (principal); N17.0 Acute kidney failure with tubular necrosis; E44.0 Moderate protein-calorie malnutrition; N18.3 Chronic kidney disease, stage 3 (moderate); J18.9 Pneumonia, unspecified organism; E11.22 Type 2 diabetes mellitus with diabetic chronic kidney disease; J44.1 Chronic obstructive pulmonary disease with (acute) exacerbation; Z68.1 Body mass index [BMI] 19.9 or less, adult; J44.0 Chronic obstructive pulmonary disease with (acute) lower respiratory infection; R65.20 Severe sepsis without septic shock; I12.9 Hypertensive chronic kidney disease with stage 1 through stage 4 chronic kidney disease, or unspecified chronic kidney disease; N18.9 Chronic kidney disease, unspecified; E78.5 Hyperlipidemia, unspecified; Z79.4 Long term (current) use of insulin; Z82.49 Family history of ischemic heart disease and other diseases of the circulatory system; Z91.041 Radiographic dye allergy status; D64.9 Anemia, unspecified; E83.42 Hypomagnesemia; E11.65 Type 2 diabetes mellitus with hyperglycemia; E66.9 Obesity, unspecified; J20.9 Acute bronchitis, unspecified; E83.39 Other disorders of phosphorus metabolism; B95.61 Methicillin susceptible Staphylococcus aureus infection as the cause of diseases classified elsewhere

== ENCOUNTER → 2017-01-23 | Outpatient (CLI) | payer MEDICARE ==
[~2017-01-23] MED LIST changes: +AMLODIPINE BES1 CAP PO; +BENZONATATE100 M1 PO; +DOXYCYCLINE100 M3 PO; +DUONEB 3 MG/3 ML3 M1 INH; +VITAMIN D34000 UNIT PO
[2017-01-23 09:33] LABS: HEMOGLOBIN A1c 8.1 % (4.8-5.6)
[2017-01-23 09:55] LABS: POTASSIUM 4.2 mmol/L (3.5-5.1)
[2017-01-23 11:21] LABS: BILIRUBIN NEGATIVE (NEGATIVE); BLOOD NEGATIVE (NEGATIVE); CLARITY CLEAR (CLEAR); COLOR YELLOW (YELLOW); GLUCOSE TRACE (NEGATIVE); KETONE NEGATIVE (NEGATIVE); LEUKO ESTERASE NEGATIVE (NEGATIVE); NITRITE NEGATIVE (NEGATIVE); PH 6.5 (5.0-9.0); PROTEIN NEGATIVE (NEGATIVE); SPECIFIC GRAVITY 1.015 (1.005-1.030); UROBILINOGEN 0.2 E.U./dl (0.2-1.0)
[2017-01-23 11:41] LABS: WBC 0-2 wbc/hpf (0-5)
== END | disposition home or self-care (01) ==
LOC: LAB 08:38
PROVIDERS: Internal Medicine
DX: E11.65 Type 2 diabetes mellitus with hyperglycemia (principal); E55.9 Vitamin D deficiency, unspecified; E78.5 Hyperlipidemia, unspecified

== ENCOUNTER → 2017-01-29 | Outpatient (CLI) | payer MEDICARE | END | disposition home or self-care (01) | LOC: RAD 12:22 | DX: J98.4 Other disorders of lung (principal); J20.8 Acute bronchitis due to other specified organisms; M47.894 Other spondylosis, thoracic region; I10 Essential (primary) hypertension; E11.9 Type 2 diabetes mellitus without complications ==

== ENCOUNTER → 2017-02-12 | Outpatient (CLI) | payer MEDICARE | END | disposition home or self-care (01) | LOC: RAD 12:09 | DX: S80.211A Abrasion, right knee, initial encounter (principal); W19.XXXA Unspecified fall, initial encounter; Y93.89 Activity, other specified; Y92.89 Other specified places as the place of occurrence of the external cause; Y99.8 Other external cause status ==

== ENCOUNTER → 2017-02-21 | Outpatient (CLI) | payer MEDICARE | LOC: WOUNDCARE 00:27 | DX: E11.622 Type 2 diabetes mellitus with other skin ulcer (principal); L97.812 Non-pressure chronic ulcer of other part of right lower leg with fat layer exposed; E11.22 Type 2 diabetes mellitus with diabetic chronic kidney disease; I12.9 Hypertensive chronic kidney disease with stage 1 through stage 4 chronic kidney disease, or unspecified chronic kidney disease; N18.3 Chronic kidney disease, stage 3 (moderate); J45.909 Unspecified asthma, uncomplicated ==

== ENCOUNTER → 2017-02-28 | Outpatient (CLI) | payer MEDICARE ==
[~2017-02-28] MED LIST changes: +LOPRESSOR25 MG PO
== END ==
LOC: WOUNDCARE 02:31
DX: E11.622 Type 2 diabetes mellitus with other skin ulcer (principal); L97.812 Non-pressure chronic ulcer of other part of right lower leg with fat layer exposed; S80.211D Abrasion, right knee, subsequent encounter; W19.XXXD Unspecified fall, subsequent encounter

== ENCOUNTER 2017-03-06 16:23 | Inpatient (IN) | payer MEDICARE ==
[~2017-03-06] VITALS: Ht 175.3 cm; Wt 99.5 kg
--- NOTE | ~2017-03-06 | PR ---
[place], [place] PROGRESS NOTE NAME: THOR WARREN UNIT #: [id number] ROOM: 422 DOCTOR: KRISTINE MÁRQUEZ MD,MARLENE BIRTHDATE: [birth year] DOS: 03/08/2017 SUBJECTIVE: The patient has been noted much comfortable at this time, reduction in symptoms of shortness of breath, cough and wheeze in the last 24 hours. The patient denies symptoms of chest pain, abdominal pain. The patient has been noted elevation of lactic acid yesterday and was given intravenous fluids. Lactic acid of the patient noted quite variable. Further lactic acid assessment, lactic acid was repeated this morning noted 2.4. This morning, the patient was comfortably sitting on the side of the bed. Denies symptoms of chest pain. Denies symptoms of hemoptysis. PHYSICAL EXAMINATION: VITAL SIGNS: Normal temperature, respiratory rate 20, heart rate 99, blood pressure 148/70. Pulse oxygen saturation noted on room air 95% saturation. HEENT: Showed no new change. NECK: Supple. Head was atraumatic. CARDIOVASCULAR: S1, S2 audible. No added sounds. LUNGS: Noted with mildly decreased breath sounds with reduction of expiratory wheezing. ABDOMEN: There was no abdominal tenderness. EXTREMITIES: Show no edema, clubbing or cyanosis. LABORATORY DATA: Lactic acid this morning was 2.4. Blood culture from 03/06 showed no bacterial growth. CBC this morning, WBC count was elevated at 19.1, hemoglobin 12.3, hematocrit 37.3, platelet count was normal. The BMP for the patient that was done this morning was noted with glucose 257, BUN 31, creatinine 1.69. IMPRESSION: 1. Resolving acute exacerbation of bronchial asthma/chronic obstructive pulmonary disease for this patient with acute tracheobronchitis. 2. Leukocytosis was also noted. 3. Lactic acidosis. The etiology was unclear. 4. History of type 2 diabetes mellitus. PLAN OF MANAGEMENT: Reduce Solu-Medrol dose to 60 mg b.i.d. from today. Continue gradual reduction of corticosteroids based on the improvement in the symptoms. Monitor respiratory status. No change in antibiotics at this time will be necessary. Further treatment changes will be done based on the progression of the illness. [place], [place] PROGRESS NOTE NAME: THOR WARREN UNIT #: [id number] ROOM: [facility] DOCTOR: MARLENE NORMAN MD BIRTHDATE: [birth year] MARLENE CARMONA MD CM:PNTRANS [phone] [id number] MARLENE MÁRQUEZ MD 03/08/171701 interface
[~2017-03-06 16:23] MED LIST changes: -LOPRESSOR25 MG PO
[2017-03-06 16:41] VITALS: BP 164/88
[2017-03-06 16:43] VITALS: BP 153/83
[2017-03-06 17:22] LABS: BASO # 0.1 10*3/uL (0.0-0.1); EOS # 0.4 10*3/uL (0.0-0.4); EOS % 3.5 % (1.0-4.0); HEMATOCRIT 40.2 % (42.0-52.0); HEMOGLOBIN 13.4 g/dl (14.0-18.0); IG # 0.1 10*3/uL (0.0-0.1); LYMPH # 2.9 10*3/uL (1.3-4.4); LYMPH % 27.3 % (27.0-41.0); MEAN CELL VOLUME 90.5 fl (80.0-94.0); MEAN CORPUSCULAR HGB 30.2 pg (27.0-31.0); MEAN CORPUSCULAR HGB CONC 33.3 g/dl (33.0-37.0); MEAN PLATELET VOLUME 9.3 fl (9.6-12.3); MONO # 1.1 10*3/uL (0.1-1.0); MONO % 9.8 % (3.0-9.0); NEUT # 6.2 10*3/uL (2.3-7.9); NEUT % 57.7 % (47.0-73.0); PLATELET COUNT AUTOMATED 372 10*3/uL (130-400); RED BLOOD COUNT 4.44 10*6/uL (4.50-5.90); WHITE BLOOD COUNT 10.7 10*3/uL (4.8-10.8)
[2017-03-06 17:40] LABS: ALBUMIN 3.7 gm/dl (3.1-4.5); ALKALINE PHOSPHATASE 56 U/L (45-117); BILIRUBIN, TOTAL 0.2 mg/dl (0.2-1.0); BUN 17 mg/dl (7-24); CARBON DIOXIDE 24 mmol/L (21-32); CHLORIDE 107 mmol/L (98-107); EST GLOM FILT AFRICAN AMERICAN 48 ml/min; GLUCOSE 65 mg/dL (65-99); MAGNESIUM 1.7 mg/dL (1.5-2.1); POTASSIUM 3.7 mmol/L (3.5-5.1); SGOT/AST 13 IU/L (3-35); SGPT/ALT 29 U/L (12-78); SODIUM 142 mmol/L (136-145); TOTAL PROTEIN 7.3 gm/dL (6.4-8.2)
[2017-03-06 17:43] LABS: C-REACTIVE PROTEIN < 0.29 MG/DL (0-0.3); TROPONIN I < 0.015 ng/ml (<0.045)
[2017-03-06 19:49] VITALS: BP 150/92
[2017-03-06] MEDS ORDERED: LOPRESSOR25 MG PO (20:48)
[2017-03-06] MEDS ORDERED: TRULICITY1.5 MG/0.5 SC (20:49)
[2017-03-06] MEDS ORDERED: PROAIR HFA8.5 GM INH (20:50)
[2017-03-07] VITALS: BP 164/84
[2017-03-07 07:12] LABS: HEMATOCRIT 39.4 % (42.0-52.0); MEAN CELL VOLUME 92.3 fl (80.0-94.0); MEAN CORPUSCULAR HGB 30.4 pg (27.0-31.0); MEAN PLATELET VOLUME 9.2 fl (9.6-12.3); PLATELET COUNT AUTOMATED 332 10*3/uL (130-400); RED BLOOD COUNT 4.27 10*6/uL (4.50-5.90); RED CELL DISTRI WIDTH 12.9 % (0-14.5); WHITE BLOOD COUNT 13.4 10*3/uL (4.8-10.8)
[2017-03-07 07:40] LABS: MAGNESIUM 1.4 mg/dL (1.5-2.1); PHOSPHOROUS 4.1 mg/dL (2.5-4.9); POTASSIUM 4.5 mmol/L (3.5-5.1)
[2017-03-07 07:47] LABS: INTERNATIONAL NORM RATIO 1.1 (2.0-3.5)
[2017-03-07 07:49] LABS: LYMPHOCYTE # 1.1 10*3/uL (1.3-4.4); MONOCYTE # 0.1 10*3/uL (0.1-1.0); NEUTROPHIL # 12.2 10*3/uL (2.3-7.9); NEUTROPHILS 91 % (47-73); PLATELET SUFFICIENCY NORMAL (NORMAL); TOTAL CELLS COUNTED 100 #CELLS
[2017-03-07 08:00] VITALS: BP 169/85
[2017-03-07 10:28] LABS: LA>2 REFLEX 2 HR DRAW NOW
[2017-03-07 10:42] LABS: LA>2 RFLX FOLLOW UP AT 2 HRS 4.4 mmol/L (0.4-2.0)
[2017-03-07 12:00] VITALS: BP 158/83
[2017-03-07 12:37] LABS: LA>2 REFLEX 4 HR DRAW NOW
[2017-03-07 13:31] LABS: BILIRUBIN NEGATIVE (NEGATIVE); BLOOD NEGATIVE (NEGATIVE); CLARITY SL CLOUDY (CLEAR); COLOR YELLOW (YELLOW); GLUCOSE 3+ (NEGATIVE); KETONE TRACE (NEGATIVE); LEUKO ESTERASE NEGATIVE (NEGATIVE); NITRITE NEGATIVE (NEGATIVE); PROTEIN NEGATIVE (NEGATIVE); UROBILINOGEN 0.2 E.U./dl (0.2-1.0)
[2017-03-07 14:20] LABS: BACTERIA TRACE; URINE REFLEX COMMENT NO (NO); YEAST 1+
[2017-03-07 16:00] VITALS: BP 124/80
[2017-03-07 17:49] LABS: LA>2 REFLEX 2 HR DRAW NOW
[2017-03-07 18:09] LABS: LA>2 RFLX FOLLOW UP AT 2 HRS 4.5 mmol/L (0.4-2.0)
[2017-03-07 19:59] LABS: LA>2 REFLEX 4 HR DRAW NOW
[2017-03-07 20:00] VITALS: BP 135/68
[2017-03-08] VITALS: BP 142/78
[2017-03-08 05:51] LABS: BASO % 0.1 % (0.0-1.0); HEMATOCRIT 37.3 % (42.0-52.0); HEMOGLOBIN 12.3 g/dl (14.0-18.0); IG # 0.2 10*3/uL (0.0-0.1); LYMPH # 1.3 10*3/uL (1.3-4.4); LYMPH % 6.7 % (27.0-41.0); MEAN CELL VOLUME 92.8 fl (80.0-94.0); MEAN CORPUSCULAR HGB 30.6 pg (27.0-31.0); MEAN PLATELET VOLUME 9.6 fl (9.6-12.3); MONO # 1.2 10*3/uL (0.1-1.0); MONO % 6.2 % (3.0-9.0); NEUT # 16.4 10*3/uL (2.3-7.9); PLATELET COUNT AUTOMATED 347 10*3/uL (130-400); RED BLOOD COUNT 4.02 10*6/uL (4.50-5.90); RED CELL DISTRI WIDTH 13.2 % (0-14.5); WHITE BLOOD COUNT 19.1 10*3/uL (4.8-10.8)
[2017-03-08 05:56] LABS: POTASSIUM 4.7 mmol/L (3.5-5.1)
[2017-03-08 07:25] LABS: LA>2 REFLEX 2 HR DRAW NOW
[2017-03-08 07:44] LABS: LA>2 RFLX FOLLOW UP AT 2 HRS 3.2 mmol/L (0.4-2.0)
[2017-03-08 08:00] VITALS: BP 148/77
[2017-03-08 09:34] LABS: LA>2 REFLEX 4 HR DRAW NOW
[2017-03-08 12:00] VITALS: BP 114/88; BP 144/88
[2017-03-08 16:00] VITALS: BP 163/79
[2017-03-08 20:00] VITALS: BP 148/78
[2017-03-09] VITALS: BP 132/70
[2017-03-09 06:15] LABS: BASO % 0.1 % (0.0-1.0); HEMATOCRIT 37.7 % (42.0-52.0); HEMOGLOBIN 12.4 g/dl (14.0-18.0); IG # 0.2 10*3/uL (0.0-0.1); LYMPH # 1.5 10*3/uL (1.3-4.4); LYMPH % 9.3 % (27.0-41.0); MEAN CELL VOLUME 90.6 fl (80.0-94.0); MEAN CORPUSCULAR HGB 29.8 pg (27.0-31.0); MEAN CORPUSCULAR HGB CONC 32.9 g/dl (33.0-37.0); MEAN PLATELET VOLUME 9.6 fl (9.6-12.3); MONO % 6.3 % (3.0-9.0); NEUT # 13.3 10*3/uL (2.3-7.9); NEUT % 83.1 % (47.0-73.0); PLATELET COUNT AUTOMATED 358 10*3/uL (130-400); RED BLOOD COUNT 4.16 10*6/uL (4.50-5.90); RED CELL DISTRI WIDTH 13.2 % (0-14.5)
[2017-03-09 06:47] LABS: POTASSIUM 4.4 mmol/L (3.5-5.1)
[2017-03-09 08:00] VITALS: BP 140/96
[2017-03-09 12:00] VITALS: BP 150/90
[2017-03-09 16:00] VITALS: BP 140/90
[2017-03-09 20:00] VITALS: BP 155/85
[2017-03-10] VITALS: BP 132/84
[2017-03-10 04:00] VITALS: BP 136/78
[2017-03-10 06:18] LABS: BASO % 0.1 % (0.0-1.0); HEMATOCRIT 39.7 % (42.0-52.0); HEMOGLOBIN 13.1 g/dl (14.0-18.0); IG # 0.2 10*3/uL (0.0-0.1); LYMPH # 1.9 10*3/uL (1.3-4.4); LYMPH % 12.4 % (27.0-41.0); MEAN CELL VOLUME 91.7 fl (80.0-94.0); MEAN CORPUSCULAR HGB 30.3 pg (27.0-31.0); MEAN PLATELET VOLUME 9.5 fl (9.6-12.3); MONO # 1.2 10*3/uL (0.1-1.0); MONO % 8.2 % (3.0-9.0); NEUT # 11.6 10*3/uL (2.3-7.9); NEUT % 77.7 % (47.0-73.0); PLATELET COUNT AUTOMATED 357 10*3/uL (130-400); RED BLOOD COUNT 4.33 10*6/uL (4.50-5.90); RED CELL DISTRI WIDTH 13.2 % (0-14.5)
[2017-03-10 06:31] LABS: POTASSIUM 4.8 mmol/L (3.5-5.1)
[2017-03-10 08:00] VITALS: BP 130/90
[2017-03-10] MEDS ORDERED: LOPRESSOR25 MG PO (10:49)
[2017-03-10] MEDS ORDERED: PREDNISONE10 MG PO (10:49)
[2017-03-10] MEDS ORDERED: LEVAQUIN750 M1 PO (10:49)
[2017-03-10 12:00] VITALS: BP 156/90
== END 2017-03-10 13:55 | disposition home or self-care (01) | DRG 871 ==
LOC: ED 16:23 → 4E 18:30 → EDHOLD 18:30 → 4E 19:36
PROVIDERS: Family Medicine; Internal Medicine; Internal Medicine Critical Care Medicine; Student in an Organized Health Care Education/Training Program
DX: A41.9 Sepsis, unspecified organism (principal); R65.21 Severe sepsis with septic shock; N17.0 Acute kidney failure with tubular necrosis; J44.0 Chronic obstructive pulmonary disease with (acute) lower respiratory infection; E11.22 Type 2 diabetes mellitus with diabetic chronic kidney disease; J45.901 Unspecified asthma with (acute) exacerbation; J44.1 Chronic obstructive pulmonary disease with (acute) exacerbation; N18.3 Chronic kidney disease, stage 3 (moderate); I12.9 Hypertensive chronic kidney disease with stage 1 through stage 4 chronic kidney disease, or unspecified chronic kidney disease; J20.8 Acute bronchitis due to other specified organisms; E11.65 Type 2 diabetes mellitus with hyperglycemia; E78.5 Hyperlipidemia, unspecified; D64.9 Anemia, unspecified; E66.9 Obesity, unspecified; Z68.32 Body mass index [BMI] 32.0-32.9, adult; Z91.041 Radiographic dye allergy status; Z79.899 Other long term (current) drug therapy; Z90.49 Acquired absence of other specified parts of digestive tract; Z83.3 Family history of diabetes mellitus; Z82.49 Family history of ischemic heart disease and other diseases of the circulatory system; Z79.4 Long term (current) use of insulin; S80.911A Unspecified superficial injury of right knee, initial encounter; X58.XXXA Exposure to other specified factors, initial encounter; Y93.89 Activity, other specified; Y92.89 Other specified places as the place of occurrence of the external cause; Y99.8 Other external cause status

== ENCOUNTER → 2017-03-19 | Outpatient (CLI) | payer MEDICARE ==
[~2017-03-19] MED LIST changes: +LEVAQUIN750 M1 PO; +LOPRESSOR25 MG PO
--- NOTE | ~2017-03-19 | PR ---
[place], [place] PROGRESS NOTE NAME: THOR WARREN UNIT #: [id number] ROOM: DOCTOR: ARASH FINNEY M.D. BIRTHDATE: [birth year] DOS: 03/19/2017 CHIEF COMPLAINT: Followup of wound of the right knee. HPI. The patient is a 66-year-old male with type 2 diabetes who suffered a large abrasion on his right knee several weeks ago. He has been seen in the wound clinic for 2 weeks now. He comes in today stating that he thinks the wound has healed. He has been using TheraHoney on it and the wound has been definitely improving during last wound care visit. PHYSICAL EXAMINATION: VITAL SIGNS: Stable. Temperature 98.6, pulse 80, respirations 18, blood pressure 146/80. ASSESSMENT AND PLAN: The wound has healed, completely epithelialized and looks good. We will go ahead and discharge the patient. He can keep it open to air. I did advise him to keep it protected from the sun. ARASH FINNEY MD CM:KEVEN [phone] ARASH FINNEY M.D. 03/19/17 0958 interface
== END ==
LOC: WOUNDCARE 02:29
DX: E11.622 Type 2 diabetes mellitus with other skin ulcer (principal); L97.812 Non-pressure chronic ulcer of other part of right lower leg with fat layer exposed

== ENCOUNTER → 2017-05-09 | Outpatient (CLI) | payer MEDICARE ==
[2017-05-09 10:33] LABS: BILIRUBIN NEGATIVE (NEGATIVE); BLOOD NEGATIVE (NEGATIVE); CLARITY CLEAR (CLEAR); COLOR YELLOW (YELLOW); GLUCOSE NEGATIVE (NEGATIVE); KETONE NEGATIVE (NEGATIVE); LEUKO ESTERASE NEGATIVE (NEGATIVE); NITRITE NEGATIVE (NEGATIVE); SPECIFIC GRAVITY 1.015 (1.005-1.030); UROBILINOGEN 0.2 E.U./dl (0.2-1.0)
[2017-05-09 10:50] LABS: ALBUMIN 3.6 gm/dl (3.1-4.5); ALKALINE PHOSPHATASE 58 U/L (45-117); BILIRUBIN, DIRECT < 0.1 mg/dL (0.0-0.2); BUN 20 mg/dl (7-24); CHLORIDE 103 mmol/L (98-107); CHOLESTEROL 134 mg/dL (<200); CREATININE 1.75 mg/dL (0.70-1.30); HDL CHOLESTEROL 50 mg/dl (40-60); LDL CHOLESTEROL 55 mg/dL (9-159); POTASSIUM 4.8 mmol/L (3.5-5.1); SGOT/AST 15 IU/L (3-35); SGPT/ALT 24 U/L (12-78); SODIUM 140 mmol/L (136-145); TOTAL PROTEIN 7.2 gm/dL (6.4-8.2); TRIGLYCERIDES 146 mg/dl (<150); VLDL CHOLESTEROL 29 mg/dL (6-40)
[2017-05-09 10:58] LABS: RBC 0-2 rbc/hpf (0-2)
[2017-05-09 10:59] LABS: WBC 0-2 wbc/hpf (0-5)
[2017-05-09 11:41] LABS: VITAMIN D, 25-HYDROXY 29.4 ng/mL (30-100)
== END | disposition home or self-care (01) ==
LOC: LAB 10:02
PROVIDERS: Internal Medicine
DX: E78.5 Hyperlipidemia, unspecified (principal); E55.9 Vitamin D deficiency, unspecified; E11.65 Type 2 diabetes mellitus with hyperglycemia; N40.0 Benign prostatic hyperplasia without lower urinary tract symptoms

== ENCOUNTER → 2017-05-10 | Outpatient (CLI) | payer MEDICARE | END | disposition home or self-care (01) | LOC: ORTHO 01:56 | DX: M19.012 Primary osteoarthritis, left shoulder (principal); M43.12 Spondylolisthesis, cervical region; M85.68 Other cyst of bone, other site; R20.0 Anesthesia of skin ==

== ENCOUNTER → 2017-06-24 | Outpatient (CLI) | payer MEDICARE ==
[2017-06-24 09:35] LABS: BASO # 0.1 10*3/uL (0.0-0.1); BASO % 0.8 % (0.0-1.0); EOS # 0.3 10*3/uL (0.0-0.4); EOS % 2.5 % (1.0-4.0); HEMATOCRIT 39.8 % (42.0-52.0); HEMOGLOBIN 13.2 g/dl (14.0-18.0); LYMPH # 2.7 10*3/uL (1.3-4.4); LYMPH % 26.3 % (27.0-41.0); MEAN CORPUSCULAR HGB 29.9 pg (27.0-31.0); MEAN CORPUSCULAR HGB CONC 33.2 g/dl (33.0-37.0); MEAN PLATELET VOLUME 9.8 fl (9.6-12.3); MONO # 0.8 10*3/uL (0.1-1.0); MONO % 8.1 % (3.0-9.0); NEUT # 6.4 10*3/uL (2.3-7.9); NEUT % 61.5 % (47.0-73.0); PLATELET COUNT AUTOMATED 335 10*3/uL (130-400); RED BLOOD COUNT 4.42 10*6/uL (4.50-5.90); RED CELL DISTRI WIDTH 13.1 % (0-14.5); WHITE BLOOD COUNT 10.3 10*3/uL (4.8-10.8)
[2017-06-24 09:50] LABS: ALBUMIN 3.6 gm/dl (3.1-4.5); CREATININE 1.71 mg/dL (0.70-1.30); PHOSPHOROUS 3.3 mg/dL (2.5-4.9); POTASSIUM 4.4 mmol/L (3.5-5.1); TOTAL PROTEIN 7.4 gm/dL (6.4-8.2)
[2017-06-24 12:03] LABS: PTH INTACT 8.7 pg/mL (14.0-72.0); VITAMIN D, 25-HYDROXY 36.7 ng/mL (30-100)
== END | disposition home or self-care (01) ==
LOC: LAB 08:51
PROVIDERS: Internal Medicine Nephrology
DX: I12.9 Hypertensive chronic kidney disease with stage 1 through stage 4 chronic kidney disease, or unspecified chronic kidney disease (principal); N18.3 Chronic kidney disease, stage 3 (moderate); E11.22 Type 2 diabetes mellitus with diabetic chronic kidney disease; E11.65 Type 2 diabetes mellitus with hyperglycemia; D63.1 Anemia in chronic kidney disease

== ENCOUNTER → 2017-09-17 | Outpatient (CLI) | payer OTHER ==
--- NOTE | ~2017-09-17 | EKG ---
[place], [place] ELECTROCARDIOGRAM REPORT NAME: THOR WARREN UNIT #: [id number] ROOM: DOCTOR: LEXA HUNTER MD BIRTHDATE: [birth year] DOS: TIME: 1054 hours. FINDINGS: 1. Normal sinus rhythm at 68 beats per minute. 2. Mild criteria for left ventricular hypertrophy. 3. An abnormal ECG. 4. No previous tracing is available for comparison. LEXA HUNTER MD CM:EKGRPT:ELECTROCARDIOGRAM REPORT 42 LEXA HUNTER MD
[2017-09-17 10:56] LABS: BILIRUBIN NEGATIVE (NEGATIVE); BLOOD NEGATIVE (NEGATIVE); CLARITY CLEAR (CLEAR); COLOR YELLOW (YELLOW); GLUCOSE TRACE (NEGATIVE); KETONE NEGATIVE (NEGATIVE); LEUKO ESTERASE NEGATIVE (NEGATIVE); NITRITE NEGATIVE (NEGATIVE); PH 5.5 (5.0-9.0); SPECIFIC GRAVITY 1.025 (1.005-1.030); UROBILINOGEN 0.2 E.U./dl (0.2-1.0)
[2017-09-17 11:17] LABS: BASO # 0.1 10*3/uL (0.0-0.1); EOS # 0.2 10*3/uL (0.0-0.4); EOS % 2.3 % (1.0-4.0); HEMATOCRIT 40.7 % (42.0-52.0); HEMOGLOBIN 13.7 g/dl (14.0-18.0); LYMPH # 2.4 10*3/uL (1.3-4.4); LYMPH % 22.8 % (27.0-41.0); MEAN CELL VOLUME 90.4 fl (80.0-94.0); MEAN CORPUSCULAR HGB 30.4 pg (27.0-31.0); MEAN CORPUSCULAR HGB CONC 33.7 g/dl (33.0-37.0); MEAN PLATELET VOLUME 9.6 fl (9.6-12.3); MONO # 1.1 10*3/uL (0.1-1.0); MONO % 10.1 % (3.0-9.0); NEUT # 6.7 10*3/uL (2.3-7.9); NEUT % 63.1 % (47.0-73.0); PLATELET COUNT AUTOMATED 322 10*3/uL (130-400); RED CELL DISTRI WIDTH 12.9 % (0-14.5); WHITE BLOOD COUNT 10.5 10*3/uL (4.8-10.8)
[2017-09-17 11:33] LABS: ALBUMIN 3.5 gm/dl (3.1-4.5); ALKALINE PHOSPHATASE 72 U/L (45-117); BUN 23 mg/dl (7-24); CHLORIDE 103 mmol/L (98-107); CHOLESTEROL 122 mg/dL (<200); CREATININE 1.76 mg/dL (0.70-1.30); HDL CHOLESTEROL 49 mg/dl (40-60); LDL CHOLESTEROL 48 mg/dL (9-159); POTASSIUM 4.3 mmol/L (3.5-5.1); SGOT/AST 15 IU/L (3-35); SGPT/ALT 28 U/L (12-78); SODIUM 140 mmol/L (136-145); TOTAL PROTEIN 7.4 gm/dL (6.4-8.2); TRIGLYCERIDES 126 mg/dl (<150); VLDL CHOLESTEROL 25 mg/dL (6-40)
[2017-09-17 11:39] LABS: BILIRUBIN, DIRECT < 0.1 mg/dL (0.0-0.2)
[2017-09-17 12:24] LABS: VITAMIN D, 25-HYDROXY 30.5 ng/mL (30-100)
[2017-09-19 02:08] LABS: TESTOSTERONE FREE, (DIRECT) 5.5 pg/mL (6.6-18.1)
== END | disposition home or self-care (01) ==
LOC: LAB 10:27
PROVIDERS: Internal Medicine; Nurse Practitioner Family
DX: E11.65 Type 2 diabetes mellitus with hyperglycemia (principal); E78.4 Other hyperlipidemia; I10 Essential (primary) hypertension; J45.909 Unspecified asthma, uncomplicated; Z12.5 Encounter for screening for malignant neoplasm of prostate; E55.9 Vitamin D deficiency, unspecified; E78.5 Hyperlipidemia, unspecified

== ENCOUNTER → 2017-10-02 | Outpatient (CLI) | payer OTHER | END | disposition home or self-care (01) | LOC: RAD 13:11 | DX: J44.9 Chronic obstructive pulmonary disease, unspecified (principal) ==

== ENCOUNTER 2017-10-17 15:18 | Inpatient (IN) | payer OTHER ==
[~2017-10-17] VITALS: Ht 175.3 cm; Wt 108.9 kg
[~2017-10-17 15:18] MED LIST changes: -VITAMIN D34000 UNIT PO; +VITAMIN D5000 UNI1 PO
[2017-10-17 15:21] VITALS: BP 156/80
[2017-10-17 15:59] LABS: BASO # 0.1 10*3/uL (0.0-0.1); BASO % 0.6 % (0.0-1.0); EOS # 0.2 10*3/uL (0.0-0.4); EOS % 1.6 % (1.0-4.0); HEMATOCRIT 38.6 % (42.0-52.0); HEMOGLOBIN 12.7 g/dl (14.0-18.0); LYMPH # 1.8 10*3/uL (1.3-4.4); LYMPH % 16.5 % (27.0-41.0); MEAN CELL VOLUME 91.9 fl (80.0-94.0); MEAN CORPUSCULAR HGB 30.2 pg (27.0-31.0); MEAN CORPUSCULAR HGB CONC 32.9 g/dl (33.0-37.0); MEAN PLATELET VOLUME 9.5 fl (9.6-12.3); MONO # 1.1 10*3/uL (0.1-1.0); MONO % 9.7 % (3.0-9.0); NEUT # 7.8 10*3/uL (2.3-7.9); PLATELET COUNT AUTOMATED 268 10*3/uL (130-400); RED CELL DISTRI WIDTH 13.2 % (0-14.5)
[2017-10-17 16:15] LABS: ALBUMIN 3.3 gm/dl (3.1-4.5); ALKALINE PHOSPHATASE 80 U/L (45-117); BUN 16 mg/dl (7-24); CHLORIDE 104 mmol/L (98-107); CREATININE 1.49 mg/dL (0.70-1.30); POTASSIUM 3.9 mmol/L (3.5-5.1); SGOT/AST 28 IU/L (3-35); SGPT/ALT 44 U/L (12-78); SODIUM 139 mmol/L (136-145); TOTAL PROTEIN 7.1 gm/dL (6.4-8.2)
[2017-10-17 16:21] LABS: TROPONIN I < 0.015 ng/ml (<0.045)
[2017-10-17 17:42] VITALS: BP 154/78
[2017-10-17 18:14] VITALS: BP 168/70
[2017-10-17] MEDS ORDERED: TOUJEO SOL300 UNIT/1 SQ (19:12)
[2017-10-17] MEDS ORDERED: LOPRESSOR25 MG PO (19:13)
[2017-10-17] MEDS ORDERED: ASMANEX HFA13 G1 INH (19:18)
[2017-10-17] MEDS ORDERED: ADVAIR 250/501 EA INH (19:18)
[2017-10-17] MEDS ORDERED: NEURONTIN300 MG PO (19:19)
[2017-10-17] MEDS ORDERED: METOPROLOL SUCC25 M2 PO (19:20)
[2017-10-17] MEDS ORDERED: ADVAIR DISKU AER 500 INH (19:20)
[2017-10-17 20:00] VITALS: BP 125/82
[2017-10-18 00:08] VITALS: BP 136/69
[2017-10-18 03:48] VITALS: BP 138/82
[2017-10-18 05:55] LABS: HEMATOCRIT 35.5 % (42.0-52.0); HEMOGLOBIN 11.5 g/dl (14.0-18.0); MEAN CELL VOLUME 93.4 fl (80.0-94.0); MEAN CORPUSCULAR HGB 30.3 pg (27.0-31.0); MEAN CORPUSCULAR HGB CONC 32.4 g/dl (33.0-37.0); MEAN PLATELET VOLUME 9.8 fl (9.6-12.3); PLATELET COUNT AUTOMATED 245 10*3/uL (130-400); RED CELL DISTRI WIDTH 13.3 % (0-14.5); WHITE BLOOD COUNT 10.1 10*3/uL (4.8-10.8)
[2017-10-18 06:01] LABS: POTASSIUM 4.2 mmol/L (3.5-5.1)
[2017-10-18 06:11] LABS: ALBUMIN 3.1 gm/dl (3.1-4.5); CREATININE 1.89 mg/dL (0.70-1.30); FREE T4 0.77 ng/dl (0.76-1.46); PHOSPHOROUS 2.8 mg/dL (2.5-4.9); THYROID STIM HORMONE (HS) 0.469 uIU/ml (0.358-4.75); TOTAL PROTEIN 6.3 gm/dL (6.4-8.2)
[2017-10-18 06:20] LABS: ACT PARTIAL THROMBO TIME 24.3 SECONDS (20.8-31.5); INTERNATIONAL NORM RATIO 1.1 (2.0-3.5)
[2017-10-18 06:39] LABS: PLATELET SUFFICIENCY NORMAL (NORMAL); TOTAL CELLS COUNTED 100 #CELLS
[2017-10-18 08:00] VITALS: BP 156/50
[2017-10-18 08:46] LABS: VITAMIN D, 25-HYDROXY 30.1 ng/mL (30-100)
[2017-10-18 12:00] VITALS: BP 141/88
[2017-10-18 16:00] VITALS: BP 130/75
[2017-10-18 20:00] VITALS: BP 119/58
[2017-10-19] VITALS: BP 111/90
[2017-10-19 06:18] LABS: HEMATOCRIT 35.3 % (42.0-52.0); HEMOGLOBIN 11.5 g/dl (14.0-18.0); MEAN CELL VOLUME 93.9 fl (80.0-94.0); MEAN CORPUSCULAR HGB 30.6 pg (27.0-31.0); MEAN CORPUSCULAR HGB CONC 32.6 g/dl (33.0-37.0); MEAN PLATELET VOLUME 9.6 fl (9.6-12.3); PLATELET COUNT AUTOMATED 264 10*3/uL (130-400); RED BLOOD COUNT 3.76 10*6/uL (4.50-5.90); RED CELL DISTRI WIDTH 13.6 % (0-14.5); WHITE BLOOD COUNT 20.3 10*3/uL (4.8-10.8)
[2017-10-19 06:44] LABS: CREATININE 1.67 mg/dL (0.70-1.30); PHOSPHOROUS 2.9 mg/dL (2.5-4.9); POTASSIUM 4.9 mmol/L (3.5-5.1)
[2017-10-19 07:20] LABS: PLATELET SUFFICIENCY NORMAL (NORMAL); TOTAL CELLS COUNTED 100 #CELLS
[2017-10-19 08:00] VITALS: BP 137/87
[2017-10-19 12:00] VITALS: BP 144/77
[2017-10-19 16:00] VITALS: BP 158/87
[2017-10-19 20:00] VITALS: BP 120/58
[2017-10-20] VITALS: BP 136/73; BP 156/86
[2017-10-20 05:55] LABS: HEMATOCRIT 37.1 % (42.0-52.0); HEMOGLOBIN 11.9 g/dl (14.0-18.0); MEAN CELL VOLUME 93.5 fl (80.0-94.0); MEAN CORPUSCULAR HGB CONC 32.1 g/dl (33.0-37.0); MEAN PLATELET VOLUME 9.7 fl (9.6-12.3); PLATELET COUNT AUTOMATED 283 10*3/uL (130-400); RED BLOOD COUNT 3.97 10*6/uL (4.50-5.90); RED CELL DISTRI WIDTH 13.7 % (0-14.5); WHITE BLOOD COUNT 19.4 10*3/uL (4.8-10.8)
[2017-10-20 06:08] LABS: CREATININE 1.57 mg/dL (0.70-1.30); POTASSIUM 5.2 mmol/L (3.5-5.1)
[2017-10-20 07:01] LABS: PLATELET SUFFICIENCY NORMAL (NORMAL); TOTAL CELLS COUNTED 100 #CELLS
[2017-10-20 08:00] VITALS: BP 150/86
[2017-10-20 12:00] VITALS: BP 153/85
[2017-10-20 16:00] VITALS: BP 154/82
[2017-10-20 20:00] VITALS: BP 152/78
[2017-10-21] VITALS: BP 156/86
[2017-10-21 06:43] LABS: BASO % 0.1 % (0.0-1.0); HEMATOCRIT 37.9 % (42.0-52.0); HEMOGLOBIN 12.7 g/dl (14.0-18.0); LYMPH % 6.1 % (27.0-41.0); MEAN CELL VOLUME 91.3 fl (80.0-94.0); MEAN CORPUSCULAR HGB 30.6 pg (27.0-31.0); MEAN CORPUSCULAR HGB CONC 33.5 g/dl (33.0-37.0); MEAN PLATELET VOLUME 9.6 fl (9.6-12.3); MONO # 0.6 10*3/uL (0.1-1.0); NEUT # 14.2 10*3/uL (2.3-7.9); NEUT % 88.9 % (47.0-73.0); PLATELET COUNT AUTOMATED 289 10*3/uL (130-400); RED BLOOD COUNT 4.15 10*6/uL (4.50-5.90); RED CELL DISTRI WIDTH 13.6 % (0-14.5)
[2017-10-21 07:30] LABS: POTASSIUM 4.8 mmol/L (3.5-5.1)
[2017-10-21 07:47] LABS: CREATININE 1.48 mg/dL (0.70-1.30)
[2017-10-21 08:00] VITALS: BP 166/86
[2017-10-21 12:00] VITALS: BP 172/93
[2017-10-21] MEDS ORDERED: LISINOPRIL20 MG PO (12:47)
[2017-10-21] MEDS ORDERED: VIBRAMYCIN100 MG PO (12:47)
[2017-10-21] MEDS ORDERED: PREDNISONE10 MG PO (12:47)
== END 2017-10-21 13:37 | disposition home or self-care (01) | DRG 871 ==
LOC: ED 15:18 → EDHOLD 16:56 → 4E 16:56
PROVIDERS: Hospitalist; Internal Medicine Nephrology; Student in an Organized Health Care Education/Training Program
DX: A41.9 Sepsis, unspecified organism (principal); J18.9 Pneumonia, unspecified organism; N17.0 Acute kidney failure with tubular necrosis; E44.0 Moderate protein-calorie malnutrition; N18.3 Chronic kidney disease, stage 3 (moderate); E11.22 Type 2 diabetes mellitus with diabetic chronic kidney disease; J44.0 Chronic obstructive pulmonary disease with (acute) lower respiratory infection; J44.1 Chronic obstructive pulmonary disease with (acute) exacerbation; R65.20 Severe sepsis without septic shock; E11.65 Type 2 diabetes mellitus with hyperglycemia; I12.9 Hypertensive chronic kidney disease with stage 1 through stage 4 chronic kidney disease, or unspecified chronic kidney disease; E78.5 Hyperlipidemia, unspecified; E83.42 Hypomagnesemia; E66.9 Obesity, unspecified; Z79.4 Long term (current) use of insulin; Z68.35 Body mass index [BMI] 35.0-35.9, adult

== ENCOUNTER → 2017-11-05 | Outpatient (CLI) | payer OTHER ==
[~2017-11-05] MED LIST changes: +ADVAIR DISKU AER 500 INH; +ASMANEX HFA13 G1 INH; +LISINOPRIL20 MG PO; +METOPROLOL SUCC25 M2 PO; +NEURONTIN300 MG PO; +TOUJEO SOL300 UNIT/1 SQ; +VIBRAMYCIN100 MG PO
== END | disposition home or self-care (01) ==
LOC: RAD 11:07
DX: J18.9 Pneumonia, unspecified organism (principal); J44.9 Chronic obstructive pulmonary disease, unspecified; I10 Essential (primary) hypertension; E11.9 Type 2 diabetes mellitus without complications

== ENCOUNTER → 2017-11-15 | Outpatient (CLI) | payer OTHER | LOC: WOUNDCARE 04:10 | DX: E11.622 Type 2 diabetes mellitus with other skin ulcer (principal); L97.212 Non-pressure chronic ulcer of right calf with fat layer exposed; E78.00 Pure hypercholesterolemia, unspecified; E11.22 Type 2 diabetes mellitus with diabetic chronic kidney disease; I12.9 Hypertensive chronic kidney disease with stage 1 through stage 4 chronic kidney disease, or unspecified chronic kidney disease; N18.3 Chronic kidney disease, stage 3 (moderate); J44.9 Chronic obstructive pulmonary disease, unspecified; F32.9 Major depressive disorder, single episode, unspecified ==

== ENCOUNTER → 2017-11-22 | Outpatient (CLI) | payer OTHER | END | disposition home or self-care (01) | LOC: WOUNDCARE 03:30 | DX: E11.622 Type 2 diabetes mellitus with other skin ulcer (principal); L97.212 Non-pressure chronic ulcer of right calf with fat layer exposed; J44.9 Chronic obstructive pulmonary disease, unspecified; I10 Essential (primary) hypertension; E78.00 Pure hypercholesterolemia, unspecified; F32.9 Major depressive disorder, single episode, unspecified ==

== ENCOUNTER 2017-11-29 09:34 | Inpatient (IN) | payer OTHER ==
[~2017-11-29] VITALS: Ht 176.5 cm; Wt 106.1 kg
[2017-11-29] VITALS (7 sets, daily range): BP systolic 147–181; BP diastolic 82–96
--- NOTE | ~2017-11-29 | CON ---
[place], [place] REPORT OF CONSULTATION NAME: THOR WARREN UNIT #: [id number] ROOM: 403 DOCTOR: HERB REAGAN MD BIRTHDATE: [birth year] DOS: 12/03/2017 REASON FOR CONSULTATION: Because of new onset atrial fibrillation. HISTORY OF PRESENT ILLNESS: A 67-year-old gentleman admitted about 2 days ago, but supposed to be discharged, found to be in rapid heart rate of 134 with AFib and the patient was started on Cardizem drip and I was consulted. The patient just had an echocardiogram done yesterday showed excellent ejection fraction without any valvular abnormalities. The patient was admitted on the 11/29/2017, patient admitted with dyspnea with exertion and short of breath, recently was treated for COPD exacerbation and bronchial asthma. The patient has a history of diastolic heart failure, mainly been admitted with COPD exacerbation. No previous history of atrial fibrillation. He denies any chest discomfort. He is on a Cardizem drip. Heart rate is very well controlled. PAST MEDICAL HISTORY: Chronic kidney disease, COPD, diastolic heart failure, hyperlipidemia, diabetes and obesity. PAST SURGICAL HISTORY: Bladder surgery, colon surgery and bronchoscopy. SOCIAL HISTORY: Former consumption of alcohol. Denies any drugs, nonsmoker. FAMILY HISTORY: Positive for coronary artery disease. ALLERGIES: IODINE. HOME MEDICATIONS: Amlodipine, inhalers, glipizide, metoprolol, rosuvastatin. Cardiac risk factors of hypertension, dyslipidemia and diabetes mellitus. REVIEW OF SYSTEMS: CONSTITUTIONAL: No fever, no chills. HEENT: No visual disturbance, hearing problems. CARDIOVASCULAR: No chest pain. Does have palpitations. RESPIRATORY: Has shortness of breath. GASTROINTESTINAL: No nausea, no vomiting. GENITOURINARY: No dysuria. NEUROLOGIC: Stable. LABORATORY DATA: Shows a white count is elevated to be 23,000, hemoglobin 13.8, hematocrit 42.1. Sodium 135, potassium 5, creatinine is 1.4, GFR is 57. INR is 1.0. EKG shows atrial fibrillation with rapid ventricular response. IMPRESSION: The patient with diabetes, hypertension, hyperlipidemia with new onset atrial fibrillation. RECOMMENDATIONS: Increase the beta-blockers to 50 b.i.d. Continue anticoagulation. Set up for a stress test. Echo showed a good ejection fraction. If the stress is normal, we will try to do medical conversion and as [place], [place] REPORT OF CONSULTATION NAME: THOR WARREN UNIT #: [id number] ROOM: 403 DOCTOR: MERARY LAZAR,HERB BIRTHDATE: [birth year] the EF is normal, start him on Rythmol 150 mg every 8 hours and start Eliquis as per the renal dose and discontinue Lovenox and I will follow up. HERB REAGAN MD CM:CONSTR:REPORT OF CONSULTATION 0725 12/03/17 0904 interface
--- NOTE | ~2017-11-29 | ST ---
[place], [place] EXERCISE STRESS TEST REPORT NAME: THOR WARREN UNIT #: [id number] ROOM: 403 DOCTOR: HERB REAGAN MD BIRTHDATE: [birth year] DOS: 12/03/2017 LEXISCAN PORTION OF THE LEXISCAN CARDIOLITE Baseline cardiogram atrial fibrillation with a controlled ventricular response, ____ mild concave ST elevation in lead 2, 0.4 mg of Lexiscan, duration of 10 seconds. With Lexiscan, the patient had no chest discomfort, no dysrhythmia, and no shortness of breath. Blood pressure and heart rate response was normal. FINAL IMPRESSION: Indeterminate test secondary to the underlying AFib. No chest pain with Lexiscan. The patient persisted in AFib with a Lexiscan, normal blood pressure and heart rate response. Nuclear images will be reported separately. HERB REAGAN MD CM:STRESS:EXERCISE STRESS TEST REPORT [id number] HERB REAGAN MD
--- NOTE | ~2017-11-29 | CON ---
[place], [place] REPORT OF CONSULTATION NAME: THOR WARREN UNIT #: [id number] ROOM: 403 DOCTOR: BRANDEN HU MD BIRTHDATE: [birth year] DOS: 11/29/2017 HISTORY OF PRESENT ILLNESS: This is a 67-year-old who has presented with a chief complaint of cough and cold and symptomatology of shortness of breath and also periodic dysphagia. He comes to the Emergency Room with white blood cell of 12.8, H and H of 14 and 41, differential within normal limit. INR 1.0. Comprehensive metabolic panel: BUN and creatinine 15 and 1.4. Electrolytes balance, amylase, lipase and BMP all within normal limits. His chest x-ray, no acute infiltration was noticed. Lactic acid 2.7. PAST MEDICAL HISTORY: Associated with COPD, diastolic congestive failure, history of asthma, chronic kidney disease, insulin-dependent diabetes mellitus. PAST SURGICAL HISTORY: Bladder and colon resection with a presumptive diagnosis of carcinoma of dysplasia, detail is not known; however, he has had a ventral hernia as well. SOCIAL HISTORY: Nonsmoker. Past alcohol history, positive. FAMILY HISTORY: Multi-systemic diseases. ALLERGIES: IODINE. MEDICATIONS: List reviewed. REVIEW OF SYSTEMS: HEENT: Denies double vision, blurred vision. RESPIRATORY: Admits to shortness of breath, cough and cold symptomatology. CARDIOVASCULAR: Denies chest pain. DIGESTIVE SYSTEM: Dysphagia periodically in upper esophagus and he has to vomit it up. PHYSICAL EXAMINATION: GENERAL: Mildly distressed with shortness of breath. VITAL SIGNS: Otherwise are stable. HEENT: Head, normocephalic, nontraumatic. Mouth and buccal mucosa benign. NECK: Supple, no thyromegaly, no cervical lymphadenopathy. CHEST: Symmetric anatomy. Wheezes anteroposteriorly bilaterally was auscultated. HEART: Normal sinus rhythm, no gallop, no murmur. ABDOMEN: Soft. No hepato-organomegaly. Bowel sounds within normal limit. EXTREMITIES: 1+ pedal edema bilaterally noticed. NEUROLOGIC: Alert, oriented, difficulty with speech. IMPRESSION: Shortness of breath, ruling out bronchitis, asthma, ruling out asthma attack, dysphagia periodically to solid food and emesis, chronic obstructive pulmonary history, lungs, however, clear on chest x-ray, diabetes mellitus, hyperlipidemia, chronic renal insufficiency, all has been recognized. PLAN AND DISCUSSION: His lactic acid remains about 2.4. These are all repeated [place], [place] REPORT OF CONSULTATION NAME: THOR WARREN UNIT #: [id number] ROOM: 403 DOCTOR: BRANDEN HU MD BIRTHDATE: [birth year] today and will be reassessed tomorrow. As far as his dysphagia is concerned, we are going to address his acute breathing issues. Once it is settled, he can always organize an EGD and dilation as outpatient. Thank you very much indeed for your kind referral. BRANDEN HU MD CM:CONSTR:REPORT OF CONSULTATION 1714 11/30/17 0246 interface
[~2017-11-29 09:34] MED LIST changes: -AMLODIPINE BESYL5 MG PO; -ATORVASTATIN CA80 M1 PO; -ELIQUIS5 M1 PO; -HUMALOG100 UNIT/1 SC; -HUMALOG100 UNIT/1 SQ; -METOPROLOL TART50 M1 PO; -PROPAFENONE HC150 MG PO; -SYMB160 INH; -ZITHROMAX500 MG PO
[2017-11-29 09:56] LABS: BASO # 0.1 10*3/uL (0.0-0.1); EOS # 0.2 10*3/uL (0.0-0.4); EOS % 1.9 % (1.0-4.0); HEMATOCRIT 41.7 % (42.0-52.0); LYMPH # 2.3 10*3/uL (1.3-4.4); LYMPH % 17.6 % (27.0-41.0); MEAN CELL VOLUME 91.2 fl (80.0-94.0); MEAN CORPUSCULAR HGB 30.6 pg (27.0-31.0); MEAN CORPUSCULAR HGB CONC 33.6 g/dl (33.0-37.0); MEAN PLATELET VOLUME 9.3 fl (9.6-12.3); MONO # 0.9 10*3/uL (0.1-1.0); MONO % 6.9 % (3.0-9.0); NEUT # 9.1 10*3/uL (2.3-7.9); NEUT % 71.4 % (47.0-73.0); PLATELET COUNT AUTOMATED 307 10*3/uL (130-400); RED BLOOD COUNT 4.57 10*6/uL (4.50-5.90); RED CELL DISTRI WIDTH 13.7 % (0-14.5); WHITE BLOOD COUNT 12.8 10*3/uL (4.8-10.8)
[2017-11-29 10:06] LABS: ACT PARTIAL THROMBO TIME 24.3 SECONDS (20.8-31.5)
[2017-11-29 10:11] LABS: ALBUMIN 3.8 gm/dl (3.1-4.5); ALKALINE PHOSPHATASE 72 U/L (45-117); BUN 15 mg/dl (7-24); CHLORIDE 105 mmol/L (98-107); CREATININE 1.41 mg/dL (0.70-1.30); LIPASE 284 U/L (73-393); POTASSIUM 4.4 mmol/L (3.5-5.1); SGOT/AST 16 IU/L (3-35); SGPT/ALT 31 U/L (12-78); SODIUM 139 mmol/L (136-145); TOTAL PROTEIN 7.5 gm/dL (6.4-8.2); TROPONIN I < 0.015 ng/ml (<0.045)
[2017-11-29] MEDS ORDERED: LOPRESSOR25 MG PO (11:40)
[2017-11-29] MEDS ORDERED: SYMB160 INH (12:06)
[2017-11-29] MEDS ORDERED: HUMALOG100 UNIT/1 SQ (12:31)
[2017-11-29] MEDS ORDERED: HUMALOG100 UNIT/1 SC (12:34)
[2017-11-30] VITALS: BP 137/81
[2017-11-30 06:13] LABS: BASO % 0.2 % (0.0-1.0); HEMATOCRIT 41.3 % (42.0-52.0); HEMOGLOBIN 13.5 g/dl (14.0-18.0); LYMPH # 1.5 10*3/uL (1.3-4.4); LYMPH % 8.3 % (27.0-41.0); MEAN CORPUSCULAR HGB 30.1 pg (27.0-31.0); MEAN CORPUSCULAR HGB CONC 32.7 g/dl (33.0-37.0); MEAN PLATELET VOLUME 9.4 fl (9.6-12.3); MONO # 0.4 10*3/uL (0.1-1.0); MONO % 2.2 % (3.0-9.0); NEUT # 15.7 10*3/uL (2.3-7.9); NEUT % 87.8 % (47.0-73.0); PLATELET COUNT AUTOMATED 331 10*3/uL (130-400); RED BLOOD COUNT 4.49 10*6/uL (4.50-5.90); RED CELL DISTRI WIDTH 13.6 % (0-14.5); WHITE BLOOD COUNT 17.9 10*3/uL (4.8-10.8)
[2017-11-30 06:39] LABS: CREATININE 1.63 mg/dL (0.70-1.30); PHOSPHOROUS 3.2 mg/dL (2.5-4.9); POTASSIUM 5.1 mmol/L (3.5-5.1)
[2017-11-30 08:00] VITALS: BP 153/72
[2017-11-30 12:00] VITALS: BP 145/73
[2017-11-30 16:00] VITALS: BP 141/68
[2017-11-30 20:00] VITALS: BP 155/64
[2017-12-01] VITALS: BP 144/75
[2017-12-01 07:50] LABS: BASO % 0.1 % (0.0-1.0); HEMATOCRIT 40.4 % (42.0-52.0); HEMOGLOBIN 13.5 g/dl (14.0-18.0); LYMPH # 1.3 10*3/uL (1.3-4.4); MEAN CORPUSCULAR HGB 30.4 pg (27.0-31.0); MEAN CORPUSCULAR HGB CONC 33.4 g/dl (33.0-37.0); MEAN PLATELET VOLUME 9.4 fl (9.6-12.3); MONO # 0.7 10*3/uL (0.1-1.0); MONO % 3.2 % (3.0-9.0); NEUT # 19.9 10*3/uL (2.3-7.9); NEUT % 89.6 % (47.0-73.0); PLATELET COUNT AUTOMATED 346 10*3/uL (130-400); RED BLOOD COUNT 4.44 10*6/uL (4.50-5.90); RED CELL DISTRI WIDTH 13.6 % (0-14.5); WHITE BLOOD COUNT 22.2 10*3/uL (4.8-10.8)
[2017-12-01 08:00] VITALS: BP 157/83
[2017-12-01 08:04] LABS: CREATININE 1.88 mg/dL (0.70-1.30); POTASSIUM 5.2 mmol/L (3.5-5.1)
[2017-12-01 12:00] VITALS: BP 152/83
[2017-12-01] MEDS ORDERED: PROTONIX40 MG PO (15:46)
[2017-12-01 16:00] VITALS: BP 130/85
[2017-12-01 20:00] VITALS: BP 144/90
[2017-12-02] VITALS (13 sets, daily range): BP systolic 98–148; BP diastolic 52–92
[2017-12-02 06:53] LABS: HEMATOCRIT 42.1 % (42.0-52.0); HEMOGLOBIN 13.8 g/dl (14.0-18.0); MEAN CELL VOLUME 92.1 fl (80.0-94.0); MEAN CORPUSCULAR HGB 30.2 pg (27.0-31.0); MEAN CORPUSCULAR HGB CONC 32.8 g/dl (33.0-37.0); MEAN PLATELET VOLUME 9.5 fl (9.6-12.3); PLATELET COUNT AUTOMATED 375 10*3/uL (130-400); RED BLOOD COUNT 4.57 10*6/uL (4.50-5.90); RED CELL DISTRI WIDTH 13.6 % (0-14.5); WHITE BLOOD COUNT 23.3 10*3/uL (4.8-10.8)
[2017-12-02 07:23] LABS: CREATININE 1.49 mg/dL (0.70-1.30)
[2017-12-02 08:08] LABS: PLATELET SUFFICIENCY NORMAL (NORMAL); TOTAL CELLS COUNTED 100 #CELLS
[2017-12-02] MEDS ORDERED: PREDNISONE10 MG PO (08:39)
[2017-12-02] MEDS ORDERED: ZITHROMAX500 MG PO (08:39)
[2017-12-03] VITALS: BP 144/91
[2017-12-03 04:00] VITALS: BP 123/82
[2017-12-03 08:00] VITALS: BP 155/88
[2017-12-03 10:10] LABS: HEMATOCRIT 43.3 % (42.0-52.0); HEMOGLOBIN 14.5 g/dl (14.0-18.0); MEAN CELL VOLUME 90.6 fl (80.0-94.0); MEAN CORPUSCULAR HGB 30.3 pg (27.0-31.0); MEAN CORPUSCULAR HGB CONC 33.5 g/dl (33.0-37.0); MEAN PLATELET VOLUME 9.5 fl (9.6-12.3); PLATELET COUNT AUTOMATED 381 10*3/uL (130-400); RED BLOOD COUNT 4.78 10*6/uL (4.50-5.90); RED CELL DISTRI WIDTH 13.5 % (0-14.5); WHITE BLOOD COUNT 18.2 10*3/uL (4.8-10.8)
[2017-12-03 10:35] LABS: PLATELET SUFFICIENCY NORMAL (NORMAL); TOTAL CELLS COUNTED 100 #CELLS
[2017-12-03 10:36] LABS: ALBUMIN 3.6 gm/dl (3.1-4.5); CREATININE 1.69 mg/dL (0.70-1.30); TOTAL PROTEIN 7.1 gm/dL (6.4-8.2)
[2017-12-03 12:00] VITALS: BP 115/84
[2017-12-03 16:00] VITALS: BP 137/82
[2017-12-03 19:57] LABS: CREATININE 1.63 mg/dL (0.70-1.30); POTASSIUM 4.9 mmol/L (3.5-5.1)
[2017-12-03 20:00] VITALS: BP 161/94
[2017-12-04] VITALS: BP 120/72
[2017-12-04 08:00] VITALS: BP 140/96
[2017-12-04 08:08] LABS: HEMATOCRIT 44.3 % (42.0-52.0); HEMOGLOBIN 14.8 g/dl (14.0-18.0); MEAN CELL VOLUME 89.9 fl (80.0-94.0); MEAN CORPUSCULAR HGB CONC 33.4 g/dl (33.0-37.0); MEAN PLATELET VOLUME 9.6 fl (9.6-12.3); PLATELET COUNT AUTOMATED 382 10*3/uL (130-400); RED BLOOD COUNT 4.93 10*6/uL (4.50-5.90); RED CELL DISTRI WIDTH 13.2 % (0-14.5); WHITE BLOOD COUNT 18.9 10*3/uL (4.8-10.8)
[2017-12-04 08:54] LABS: PLATELET SUFFICIENCY NORMAL (NORMAL); TOTAL CELLS COUNTED 100 #CELLS
[2017-12-04] MEDS ORDERED: METOPROLOL TART50 M1 PO (10:39)
[2017-12-04] MEDS ORDERED: PROPAFENONE HC150 MG PO (10:39)
[2017-12-04] MEDS ORDERED: AMLODIPINE BESYL5 MG PO (10:39)
[2017-12-04] MEDS ORDERED: ATORVASTATIN CA80 M1 PO (10:39)
[2017-12-04] MEDS ORDERED: ELIQUIS5 M1 PO (10:39)
== END 2017-12-04 11:19 | disposition home or self-care (01) | DRG 871 ==
LOC: ED 09:34 → EDHOLD 10:55 → 4E 10:55
PROVIDERS: Emergency Medicine; Family Medicine; Internal Medicine Cardiovascular Disease; Registered Nurse; Student in an Organized Health Care Education/Training Program
PROC: 3E073KZ Introduction of Other Diagnostic Substance into Coronary Artery, Percutaneous Approach (ICD-10-PCS; principal; 2017-12-03)
PROC: 4A02XM4 Measurement of Cardiac Total Activity, External Approach (ICD-10-PCS; principal; 2017-12-03)
DX: A41.9 Sepsis, unspecified organism (principal); J18.9 Pneumonia, unspecified organism; N17.0 Acute kidney failure with tubular necrosis; I13.0 Hypertensive heart and chronic kidney disease with heart failure and stage 1 through stage 4 chronic kidney disease, or unspecified chronic kidney disease; E87.2 Acidosis; E11.22 Type 2 diabetes mellitus with diabetic chronic kidney disease; I50.32 Chronic diastolic (congestive) heart failure; I48.91 Unspecified atrial fibrillation; J44.1 Chronic obstructive pulmonary disease with (acute) exacerbation; J44.0 Chronic obstructive pulmonary disease with (acute) lower respiratory infection; R65.20 Severe sepsis without septic shock; E66.09 Other obesity due to excess calories; N18.3 Chronic kidney disease, stage 3 (moderate); E11.65 Type 2 diabetes mellitus with hyperglycemia; D72.810 Lymphocytopenia; E78.5 Hyperlipidemia, unspecified; Z79.4 Long term (current) use of insulin; Z88.9 Allergy status to unspecified drugs, medicaments and biological substances; Z82.49 Family history of ischemic heart disease and other diseases of the circulatory system; Z83.3 Family history of diabetes mellitus; Z80.8 Family history of malignant neoplasm of other organs or systems; Z83.6 Family history of other diseases of the respiratory system; Z81.2 Family history of tobacco abuse and dependence; Z87.891 Personal history of nicotine dependence; Z68.34 Body mass index [BMI] 34.0-34.9, adult

== ENCOUNTER → 2017-11-29 | Outpatient (CLI) | payer OTHER ==
[~2017-11-29] MED LIST changes: -AMLODIPINE BES1 CAP PO; +AMLODIPINE BESYL5 MG PO; +ATORVASTATIN CA80 M1 PO; +ELIQUIS5 M1 PO; +HUMALOG100 UNIT/1 SC; +HUMALOG100 UNIT/1 SQ; +METOPROLOL TART50 M1 PO; -NEURONTIN300 MG PO; +NEURONTIN600 MG PO; +NORVASC5 MG PO; +PROPAFENONE HC150 MG PO; +SYMB160 INH; +ZITHROMAX500 MG PO
== END | disposition home or self-care (01) ==
LOC: WOUNDCARE 00:48
DX: E11.622 Type 2 diabetes mellitus with other skin ulcer (principal); L97.212 Non-pressure chronic ulcer of right calf with fat layer exposed; E11.22 Type 2 diabetes mellitus with diabetic chronic kidney disease; I12.9 Hypertensive chronic kidney disease with stage 1 through stage 4 chronic kidney disease, or unspecified chronic kidney disease; N18.3 Chronic kidney disease, stage 3 (moderate); E78.00 Pure hypercholesterolemia, unspecified; J44.9 Chronic obstructive pulmonary disease, unspecified; F32.9 Major depressive disorder, single episode, unspecified

== ENCOUNTER → 2017-12-06 | Outpatient (CLI) | payer OTHER ==
[~2017-12-06] MED LIST changes: +AMLODIPINE BESYL5 MG PO; +ATORVASTATIN CA80 M1 PO; +ELIQUIS5 M1 PO; +HUMALOG100 UNIT/1 SC; +HUMALOG100 UNIT/1 SQ; +METOPROLOL TART50 M1 PO; +PROPAFENONE HC150 MG PO; +SYMB160 INH; +ZITHROMAX500 MG PO
== END | disposition home or self-care (01) ==
LOC: WOUNDCARE 02:10
DX: E11.622 Type 2 diabetes mellitus with other skin ulcer (principal); L97.212 Non-pressure chronic ulcer of right calf with fat layer exposed; E11.22 Type 2 diabetes mellitus with diabetic chronic kidney disease; I12.9 Hypertensive chronic kidney disease with stage 1 through stage 4 chronic kidney disease, or unspecified chronic kidney disease; N18.3 Chronic kidney disease, stage 3 (moderate); E78.00 Pure hypercholesterolemia, unspecified; J44.9 Chronic obstructive pulmonary disease, unspecified; F32.9 Major depressive disorder, single episode, unspecified

== ENCOUNTER 2017-12-23 12:31 | Inpatient (IN) | payer OTHER ==
[2017-12-23] VITALS (7 sets, daily range): BP systolic 119–160; BP diastolic 70–85
[~2017-12-23] VITALS: Ht 175.3 cm; Wt 107.0 kg
--- NOTE | ~2017-12-23 | PROC NOTE ---
[place], [place] PROCEDURE NOTE NAME: THOR WARREN UNIT #: [id number] ROOM: 503 DOCTOR: KRISTINE MÁRQUEZ MD,MARLENE BIRTHDATE: [birth year] DOS: 12/25/2017 PREOPERATIVE DIAGNOSES: Persistent severe coughing, wheezing and shortness of breath, now resolving current medical management. POSTOPERATIVE DIAGNOSIS: Successful removal and fungus secretions bilaterally with thick plugs of the mucus, ongoing acute tracheobronchitis noted with inflammatory changes. PROCEDURE DESCRIPTION: Informed consent was obtained. The patient was brought to the OR. He was placed in supine position, conscious sedation administered by the Anesthesia Department. After achieving proper sedation, airway introduced into the mouth. Bronchoscope advanced to the airway into laryngeal area. Epiglottis and vocal cords were seen. Vocal cords moving symmetrically with movements. Bronchoscope advanced to the tracheal lumen to the mary level. Severe thick mucus secretion present in the tracheal lumen, which was suctioned out. Right upper, right middle, right lower, left upper, lingular lower lobe bronchi all examined. The endobronchial secretion was present and causing thick multiple plugs of mucus. Endobronchial tree bilaterally suctioned out with the help of normal saline wash. Procedure was well tolerated by the patient without difficulty. Postoperative finding were discussed with the patient's spouse in detail. No major changes in treatment at this time will be necessary. MARLENE CARMONA MD CM:PROCNOTE:PROCEDURE NOTE 1150 1558 MARLENE MÁRQUEZ MD
--- NOTE | ~2017-12-23 | EKG ---
[place], [place] ELECTROCARDIOGRAM REPORT NAME: THOR WARREN UNIT #: [id number] ROOM: 503 DOCTOR: KRISTINE MÁRQUEZ MD,MARLENE BIRTHDATE: [birth year] DOS: 12/23/2017 TIME: 12:50 p.m. Normal sinus rhythm. Heart rate 78 beats per minute. Nonspecific ST-T changes noted. Possibility of old inferior myocardial infarction would be considered. MARLENE CARMONA MD CM:EKGRPT:ELECTROCARDIOGRAM REPORT 180 180 MARLENE MÁRQUEZ MD
--- NOTE | ~2017-12-23 | PR ---
[place], [place] PROGRESS NOTE NAME: THOR WARREN UNIT #: [id number] ROOM: 503 DOCTOR: KRISTINE MÁRQUEZ MD,MARLENE BIRTHDATE: [birth year] DOS: 12/26/2017 SUBJECTIVE: The patient was noted comfortable at this time with significant improvement in the respiratory symptom after bronchoscopy yesterday. Coughing has improved significantly. Wheezing was also resolved. The symptoms of chest pain and shortness breath are resolving. OBJECTIVE: VITAL SIGNS: Normal temperature, respiratory rate 20, heart rate 89, blood pressure 156/88. Pulse oxygen saturation on 3 liters cannula was recorded 98% saturation. HEENT: No acute change. NECK: Supple. CARDIOVASCULAR: S1, S2 is audible. LUNGS: The patient was noted without any wheeze or crackles. ABDOMEN: Soft, nontender. Positive bowel sounds. EXTREMITIES: Without any acute edema. LABORATORY DATA: Culture of the bronchial washing noted as normal ____. Final culture results are pending. IMPRESSION: The patient with resolving acute exacerbation of bronchial asthma. The patient with acute tracheobronchitis, status post bronchoscopy with significant reduction in improvement in the respiratory symptoms. PLAN OF MANAGEMENT: No changes in the plan of care for the patient at this time except possible consideration of home discharge on oral medication would be considered. All other supportive therapy, plan of management and care plan per usual treatment. Other supportive plan of care and therapies. MARLENE CARMONA MD CM:PNTRANS [id number] MARLENE MÁRQUEZ MD 12/26/17 1644 interface
--- NOTE | ~2017-12-23 | O ---
[place], [place] OPERATIVE NOTE NAME: THOR WARREN UNIT #: [id number] ROOM: 503 DOCTOR: FRITZ LAZARBRANDEN BIRTHDATE: [birth year] DOS: 12/25/2017 INDICATIONS: The patient has presented as a 67-year-old, who has presented with chief complaint of dysphagia amongst his complaints and he has had bronchoscopy done by Dr. Plunkett also today because of shortness of breath, coughing and concerns. His white blood cell was 8.4, H and H was 12 and 36. His platelet count was 230. Arterial blood gases pH was 7.36 with pCO2 of 46. Lactic acid was normal. Comprehensive metabolic panel: Creatinine was 1.3, otherwise chemistry normal. Chest x-ray showed no acute cardiopulmonary process. Comprehensive metabolic panel was reassessed again renal insufficiency was noticed for sure. PAST MEDICAL HISTORY: COPD, renal insufficiency, atrial fibrillation, obesity, asthma, essential hypertension, diabetes mellitus. PAST SURGICAL HISTORY: Cystoscopy and bronchoscopy and hernia repair. SOCIAL HISTORY: Nonsmoker, has never smoked and past alcohol consumer. FAMILY HISTORY: COPD. ALLERGIES: IODINE. MEDICATION: List has been reviewed. PROCEDURE: Today's procedure part of investigation is panendoscopy plus esophageal balloon dilation plus mobilization of the gastric bezoar. PREMEDICATION: Versed and propofol. SCOPE: Olympus forward-viewing gastroscope Q10 video. REPORT: After putting the patient in left lateral position and application of lubricant to the scope, the scope was introduced; thereafter, under direct visualization, advanced through the length of esophagus without difficulty. Benign stricture of upper esophagus was noticed. Distal esophagitis was identified. This is secondary to reflux. Gastric pouch was entered. Large gastric bezoar with pedicles attached to the lesser and greater curvature was identified. This was broken and bezoar mobilized. Duodenal bulb, second and third part entered, in the duodenal bulb is still there is food debris. Photographic series obtained. Antral biopsy obtained. Air was suctioned out. Balloon size 20 was introduced into the gastric pouch inflated to size 20 and sweeped along the esophagus. Upper esophageal stricture resistance was noticed, dilated to size 20. The patient tolerated the procedure well. IMPRESSION: 1. Esophageal stricture, status post balloon dilation to size 20. 2. Gastritis. 3. Diabetic gastroparesis. 4. Gastric bezoar status post mobilization. [place], [place] OPERATIVE NOTE NAME: THOR WARREN UNIT #: [id number] ROOM: 503 DOCTOR: FRITZ LAZAR,BRANDEN BIRTHDATE: [birth year] PLAN AND DISCUSSION: We are going to keep him on Protonix 40 mg daily. We are going to start him on Creon 12 one tablet with meals. We are going to see if he can tolerate metoclopramide 5 mg p.o. is going to be given today and if he does not have extrapyramidal side effect, then we can increase to twice a day 5 mg to see if he can tolerate it still, then we are going to keep him on 5 mg continuous one hour a.c. dinner. For the next 2 days, we are going to keep him on full liquid. The purpose is to allow the existing debris to evacuate the gastric pouch so that he does not get the same feelings of fullness and reflux symptomatology. After that, we can advance him to regular 1800 ADA diet and continuing as outpatient. BRANDEN HU MD CM:OPRECORD:OPERATIVE NOTE 1521 1605 BRANDEN HU MD 12/25/17 1603 interface
--- NOTE | ~2017-12-23 | CON ---
[place], [place] REPORT OF CONSULTATION NAME: THOR WARREN UNIT #: [id number] ROOM: 503 DOCTOR: MARLENE NORMAN MD BIRTHDATE: [birth year] DOS: 12/24/2017 CONSULTATION REQUESTED BY: Hospitalist services. REASON FOR CONSULTATION: To assess the patient for ongoing progressive respiratory symptoms. HISTORY OF PRESENT ILLNESS: This is a 67-year-old white male patient, who has been admitted to the hospital under hospitalist service. On 12/23/2017, the patient came to the Emergency Room. The patient states he is having symptoms of increased shortness of breath that has been occurring for the patient for the past few days. The symptoms were also associated with increased coughing, which are described moderate to severe, nonproductive. The patient denies any symptoms of chest pain with those symptoms. The patient does have symptoms of wheezing at times. He has been seen by the primary care physician and was prescribed antibiotics. The patient is on tapering dose of prednisone. He has not shown an improvement in the symptom. He has been recently prescribed Eliquis as well and underwent cardiac stress testing. He stated continued symptoms rather, which has been noted persistent at this time and nonresolving. The patient denies any symptoms of chest pain or hemoptysis. REVIEW OF SYSTEMS: CONSTITUTIONAL: Fatigue and tiredness noted. The patient without any symptoms of fever or chills. EYES: Denies any burning, redness, or tenderness. EARS, NOSE, AND THROAT SYMPTOMS: Denies symptoms of sore throat, hoarseness, otalgia, or postnasal drainage. CARDIOVASCULAR: Denies anginal pain, edema or pain of the lower extremities. GASTROINTESTINAL: Denies dysphagia, nausea, vomiting, diarrhea, abdominal pain, hematemesis, melena, or hematochezia. SKIN: Denies abnormal lesions or rashes. MUSCULOSKELETAL: No acute joint pain, redness, or tenderness. CENTRAL NERVOUS SYSTEM: No dizziness, headache, diplopia, or syncopal episodes. Remaining systems were reviewed with the patient, they were noted all negative. PAST MEDICAL HISTORY: 1. The patient was known with history of COPD. 2. Chronic kidney disease, stage 2-3. 3. Essential hypertension. 4. Moderate obesity. 5. Type 2 diabetes mellitus. 6. History hypercholesterolemia. 7. History of gastroesophageal reflux. 8. Vitamin D deficiency. 9. Atrial fibrillation. PAST SURGICAL HISTORY: 1. Hernia repair. 2. Surgery of the colon for the patient, details unknown. [place], [place] REPORT OF CONSULTATION NAME: THOR WARREN UNIT #: [id number] ROOM: [facility] DOCTOR: KRISTINE MÁRQUEZ MDMARLENE BIRTHDATE: [birth year] 3. Fiberoptic bronchoscopy in December 2016. SOCIAL HISTORY: The patient noted nonsmoker, lifetime. No history of alcohol use or illicit drug use. Occupation related pulmonary exposure history. FAMILY HISTORY: Both parents . Father at age of 62 of unknown medical illnesses. Mother at the age of 6060 years old from acute myocardial infarction. MEDICATIONS: Current medication listed noted use of amlodipine, vitamin D, Protonix, metoprolol tartrate, Lipitor, Rythmol, Eliquis, gabapentin, Solu-Medrol 60 mg b.i.d., glipizide, Levaquin, and other p.r.n. medications. ALLERGIES: THE DRUG ALLERGIES NOTED ALLERGY TO IODINE. PHYSICAL EXAMINATION: GENERAL: A 67-year-old white male, currently noted awake and alert without any acute distress with excessive cough. Height of 5 feet 9 inches, weight of 236 pounds, BMI 34.8. VITAL SIGNS: Normal temperature, respiratory 20-30, heart rate 93-70, blood pressure 136/85-160/76. The pulse oxygen saturation on 2 liters nasal cannula 95% saturation recorded. HEENT: Head was atraumatic. Eyes nonicterus. NECK: Supple. CARDIOVASCULAR: S1, S2 is audible. LUNGS: The patient was noted with diffuse expiratory wheezing which are noted, moderate decreased breath sounds bilaterally. There were no crackles heard. ABDOMEN: Soft, nontender. Bowel sounds present. EXTREMITIES: The patient was noted with [id number] obesity without any edema, clubbing, or cyanosis. CENTRAL NERVOUS SYSTEM: For this patient was noted, cranial nerves 2-12 intact. No focal deficit. MUSCULOSKELETAL: No current deformities. SKIN: No lesions or rashes. LABORATORY DATA: Arterial blood gas that was done yesterday on this patient, pH of 7.36, pCO2 of 46, pO2 of 87 on 3 liters nasal cannula. The CBC of the patient on 12/23/2017, WBC count 8.4, hemoglobin 12.6, hematocrit of 39.3, platelet count was noted 233,000. Lactic acid 0.9 noted on admission. BMP: BUN 22, creatinine 1.39 on admission. PT and PTT were normal. MP of the patient on 12/24/2017, BUN 26, creatinine 1.76, glucose 321. Sodium 134. Potassium was noted as 4.0. CBC of this morning for the patient hemoglobin 12.6, hematocrit 38.3, WBC count normal, platelet count were normal. Stress testing 12/03/2017 Cardiolite stress test of the patient was noted indeterminate test secondary to underlying atrial fibrillation. The nuclear medicine images for the patient were reported with findings of left ventricular ejection fraction noted as 72%. Normal myocardial perfusion scan was reported. IMPRESSION: 1. The patient has been currently admitted to the hospital. The patient was [place], [place] REPORT OF CONSULTATION NAME: THOR WARREN UNIT #: [id number] ROOM: [facility] DOCTOR: MARLENE NORMAN MD BIRTHDATE: [birth year] noted with acute exacerbation of chronic obstructive pulmonary disease, possible bronchial asthma as well. With lack of tobacco use, the patient has not been assessed in the office. The patient to determine that seen by another bread packer in [place], [place]. 2. Moderate obesity. 3. Severe nonproductive cough and acute atrial fibrillation with current controlled response and chronic anticoagulation. PLAN OF THERAPY: The patient will be continued on the current dose of Solu-Medrol and bronchodilators. Bronchoscopy assessed to be done tomorrow morning with severe coughing and failed outpatient treatment, ongoing symptom for the past several days with more than couple of weeks. The bronchodilators to be continued as previously. No changes to Solu-Medrol needs to be done. Continue current antibiotic as well. No changes need to be made. Usual care, other supportive therapy, plan of management and care plan. Additional treatment changes to be made for the patient based on progression of the illness. Thanks for allowing me to participate in the care of this patient. MARLENE CARMONA MD CM:CONSTR:REPORT OF CONSULTATION 1532 12/24/17 2208 interface
--- NOTE | ~2017-12-23 | PR ---
[place], [place] PROGRESS NOTE NAME: THOR WARREN UNIT #: [id number] ROOM: 503 DOCTOR: KRISTINE MÁRQUEZ MD,MARLENE BIRTHDATE: [birth year] DOS: 12/25/2017 PULMONARY FOLLOWUP SUBJECTIVE: He has been noted n.p.o. ____ bronchoscopy planned for today, still noted severe coughing, which occurred intermittently. There was no sputum expectoration noted. He denies symptoms of shortness of breath, wheezing as well with tightness in the chest, also noted is oropharyngeal dysphagia. The patient with history of esophageal stricture. Denies symptoms of abdominal pain, nausea, vomiting, diarrhea, denies edema or pain of lower extremity. Denies dizziness, headache. General weakness and fatigue, was noted. Remaining systems were reviewed. They were noted all negative. OBJECTIVE: VITAL SIGNS: Normal temperature, respiratory rate 18, heart rate 79, blood pressure 141/96-117/67. Pulse ox saturation on 2 liters 99% saturation. HEENT: Head was atraumatic. Eyes nonicterus. NECK: Supple. CARDIOVASCULAR: S1, S2 audible. LUNGS: Examination of the lungs was noted with moderate decreased breath sounds bilaterally with expiratory wheezing. There were no crackles. ABDOMEN: Soft. Moderate obesity. Bowel sounds present. EXTREMITIES: Without any acute edema. SKIN: No lesions or rashes. MUSCULOSKELETAL: Noted without any acute deformities. CENTRAL NERVOUS SYSTEM: Cranial nerves 2-12 intact. The renal function panel today, glucose 216, BUN 41, creatinine 1.66. Remaining electrolytes were normal. Blood cultures 7th of this month showed no bacterial growth. IMPRESSION: 1. The patient has been noted with ongoing severe acute exacerbation of bronchial asthma with acute tracheobronchitis, severe nonproductive cough. 2. Resolving acute kidney injury for the patient gradually as well. 3. The patient with atrial fibrillation, currently noted in the medications. The patient was taking Plavix. The patient was placed on hold yesterday for the bronchoscopy. PLAN OF TREATMENT: At this time, no changes in the plan of management. The patient proceeded with bronchoscopy. Any modification of treatment if necessary will be ordered after the bronchoscopy. Additional change in the treatment needs to be done will be made after the procedure. [place], [place] PROGRESS NOTE NAME: THOR WARREN UNIT #: [id number] ROOM: [facility] DOCTOR: KRISTINE MÁRQUEZ MD,MARLENE BIRTHDATE: [birth year] MARLENE CARMONA MD CM:KEVEN 1148 1557 MARLENE MÁRQUEZ MD 12/25/17 1557 interface
[2017-12-23 12:48] LABS: ABG BASE EXCESS 0.3 mmol/L (-2.0-2.0); ABG HCO3 25.6 mmol/l (22-26); ABG O2 SATURATION 96.2 % (95-97); ARTERIAL BLOOD GAS PCO2 46.2 mmHg (35-45); ARTERIAL BLOOD GAS PH 7.361 (7.35-7.45)
[2017-12-23 13:06] LABS: BASO % 0.5 % (0.0-1.0); EOS # 0.3 10*3/uL (0.0-0.4); EOS % 3.7 % (1.0-4.0); HEMATOCRIT 39.3 % (42.0-52.0); HEMOGLOBIN 12.6 g/dl (14.0-18.0); LYMPH % 12.4 % (27.0-41.0); MEAN CORPUSCULAR HGB 30.1 pg (27.0-31.0); MEAN CORPUSCULAR HGB CONC 32.1 g/dl (33.0-37.0); MEAN PLATELET VOLUME 9.6 fl (9.6-12.3); MONO # 0.9 10*3/uL (0.1-1.0); MONO % 10.5 % (3.0-9.0); NEUT # 6.1 10*3/uL (2.3-7.9); NEUT % 71.8 % (47.0-73.0); PLATELET COUNT AUTOMATED 233 10*3/uL (130-400); RED BLOOD COUNT 4.18 10*6/uL (4.50-5.90); RED CELL DISTRI WIDTH 14.2 % (0-14.5); WHITE BLOOD COUNT 8.4 10*3/uL (4.8-10.8)
[2017-12-23 13:22] LABS: ALBUMIN 3.4 gm/dl (3.1-4.5); ALKALINE PHOSPHATASE 71 U/L (45-117); BUN 22 mg/dl (7-24); CHLORIDE 102 mmol/L (98-107); CREATININE 1.39 mg/dL (0.70-1.30); POTASSIUM 4.2 mmol/L (3.5-5.1); SGOT/AST 15 IU/L (3-35); SGPT/ALT 37 U/L (12-78); SODIUM 136 mmol/L (136-145); TOTAL PROTEIN 6.6 gm/dL (6.4-8.2)
[2017-12-23 13:24] LABS: TROPONIN I < 0.015 ng/ml (<0.045)
[2017-12-24] VITALS: BP 112/57
[2017-12-24 06:33] LABS: HEMATOCRIT 38.3 % (42.0-52.0); HEMOGLOBIN 12.6 g/dl (14.0-18.0); MEAN CELL VOLUME 91.6 fl (80.0-94.0); MEAN CORPUSCULAR HGB 30.1 pg (27.0-31.0); MEAN CORPUSCULAR HGB CONC 32.9 g/dl (33.0-37.0); MEAN PLATELET VOLUME 9.5 fl (9.6-12.3); PLATELET COUNT AUTOMATED 234 10*3/uL (130-400); RED BLOOD COUNT 4.18 10*6/uL (4.50-5.90); RED CELL DISTRI WIDTH 13.8 % (0-14.5); WHITE BLOOD COUNT 6.6 10*3/uL (4.8-10.8)
[2017-12-24 07:08] LABS: ALBUMIN 3.3 gm/dl (3.1-4.5); CREATININE 1.76 mg/dL (0.70-1.30)
[2017-12-24 07:10] LABS: PHOSPHOROUS 3.7 mg/dL (2.5-4.9); TOTAL PROTEIN 6.9 gm/dL (6.4-8.2)
[2017-12-24 07:39] LABS: TOTAL CELLS COUNTED 100 #CELLS
[2017-12-24 07:40] LABS: PLATELET SUFFICIENCY NORMAL (NORMAL)
[2017-12-24 08:00] VITALS: BP 130/80
[2017-12-24 12:00] VITALS: BP 142/79
[2017-12-24 16:00] VITALS: BP 154/86
[2017-12-24 20:00] VITALS: BP 156/73
[2017-12-25] VITALS (12 sets, daily range): BP systolic 96–153; BP diastolic 46–98
[2017-12-25 10:55] LABS: ALBUMIN 3.3 gm/dl (3.1-4.5); CREATININE 1.66 mg/dL (0.70-1.30); POTASSIUM 4.7 mmol/L (3.5-5.1)
[2017-12-25 10:56] LABS: PHOSPHOROUS 4.9 mg/dL (2.5-4.9)
[2017-12-26] VITALS: BP 131/89
[2017-12-26 07:45] LABS: BASO % 0.1 % (0.0-1.0); HEMATOCRIT 38.8 % (42.0-52.0); HEMOGLOBIN 12.5 g/dl (14.0-18.0); LYMPH # 0.8 10*3/uL (1.3-4.4); LYMPH % 4.6 % (27.0-41.0); MEAN CELL VOLUME 93.7 fl (80.0-94.0); MEAN CORPUSCULAR HGB 30.2 pg (27.0-31.0); MEAN CORPUSCULAR HGB CONC 32.2 g/dl (33.0-37.0); MEAN PLATELET VOLUME 9.5 fl (9.6-12.3); MONO # 0.8 10*3/uL (0.1-1.0); MONO % 4.6 % (3.0-9.0); NEUT # 14.9 10*3/uL (2.3-7.9); PLATELET COUNT AUTOMATED 284 10*3/uL (130-400); RED BLOOD COUNT 4.14 10*6/uL (4.50-5.90); RED CELL DISTRI WIDTH 14.4 % (0-14.5); WHITE BLOOD COUNT 16.6 10*3/uL (4.8-10.8)
[2017-12-26 08:00] VITALS: BP 156/88
[2017-12-26 08:02] LABS: ALBUMIN 3.3 gm/dl (3.1-4.5); CREATININE 1.44 mg/dL (0.70-1.30); POTASSIUM 4.5 mmol/L (3.5-5.1); TOTAL PROTEIN 6.6 gm/dL (6.4-8.2)
[2017-12-26] MEDS ORDERED: METOCLOPRAMIDE H5 M1 PO (10:19)
[2017-12-26] MEDS ORDERED: LEVOFLOXACIN500 MG PO (10:19)
[2017-12-26] MEDS ORDERED: PREDNISONE10 MG PO (10:20)
[2017-12-26 15:08] LABS: ACID FAST SPEC PROCESSING Concentration (.)
== END 2017-12-26 11:12 | disposition home or self-care (01) | DRG 393 ==
LOC: ED 12:31 → 5E 14:23 → EDHOLD 14:23 → 5E 15:27
PROVIDERS: Internal Medicine Critical Care Medicine; Nurse Practitioner Family; Registered Nurse
PROC: 0BC58ZZ Extirpation of Matter from Right Middle Lobe Bronchus, Via Natural or Artificial Opening Endoscopic (ICD-10-PCS; principal; 2017-12-25)
PROC: 0BC68ZZ Extirpation of Matter from Right Lower Lobe Bronchus, Via Natural or Artificial Opening Endoscopic (ICD-10-PCS; principal; 2017-12-25)
PROC: 0BC98ZZ Extirpation of Matter from Lingula Bronchus, Via Natural or Artificial Opening Endoscopic (ICD-10-PCS; principal; 2017-12-25)
PROC: 0BC78ZZ Extirpation of Matter from Left Main Bronchus, Via Natural or Artificial Opening Endoscopic (ICD-10-PCS; principal; 2017-12-25)
PROC: 0BCB8ZZ Extirpation of Matter from Left Lower Lobe Bronchus, Via Natural or Artificial Opening Endoscopic (ICD-10-PCS; principal; 2017-12-25)
PROC: 0BC48ZZ Extirpation of Matter from Right Upper Lobe Bronchus, Via Natural or Artificial Opening Endoscopic (ICD-10-PCS; principal; 2017-12-25)
PROC: 0BC38ZZ Extirpation of Matter from Right Main Bronchus, Via Natural or Artificial Opening Endoscopic (ICD-10-PCS; principal; 2017-12-25)
PROC: 0D758ZZ Dilation of Esophagus, Via Natural or Artificial Opening Endoscopic (ICD-10-PCS; principal; 2017-12-25)
PROC: 0BC88ZZ Extirpation of Matter from Left Upper Lobe Bronchus, Via Natural or Artificial Opening Endoscopic (ICD-10-PCS; principal; 2017-12-25)
PROC: 0BC18ZZ Extirpation of Matter from Trachea, Via Natural or Artificial Opening Endoscopic (ICD-10-PCS; principal; 2017-12-25)
PROC: 0DB78ZX Excision of Stomach, Pylorus, Via Natural or Artificial Opening Endoscopic, Diagnostic (ICD-10-PCS; principal; 2017-12-25)
DX: T18.9XXA Foreign body of alimentary tract, part unspecified, initial encounter (principal); N17.0 Acute kidney failure with tubular necrosis; I50.33 Acute on chronic diastolic (congestive) heart failure; E11.43 Type 2 diabetes mellitus with diabetic autonomic (poly)neuropathy; E87.2 Acidosis; E44.0 Moderate protein-calorie malnutrition; T17.590A Other foreign object in bronchus causing asphyxiation, initial encounter; K31.84 Gastroparesis; I48.1 Persistent atrial fibrillation; E11.22 Type 2 diabetes mellitus with diabetic chronic kidney disease; I13.0 Hypertensive heart and chronic kidney disease with heart failure and stage 1 through stage 4 chronic kidney disease, or unspecified chronic kidney disease; J44.1 Chronic obstructive pulmonary disease with (acute) exacerbation; J45.901 Unspecified asthma with (acute) exacerbation; E11.65 Type 2 diabetes mellitus with hyperglycemia; E78.5 Hyperlipidemia, unspecified; K21.9 Gastro-esophageal reflux disease without esophagitis; E66.9 Obesity, unspecified; N18.3 Chronic kidney disease, stage 3 (moderate); X58.XXXA Exposure to other specified factors, initial encounter; J20.9 Acute bronchitis, unspecified; K29.70 Gastritis, unspecified, without bleeding; Z79.4 Long term (current) use of insulin; Y93.89 Activity, other specified; Y92.89 Other specified places as the place of occurrence of the external cause; Y99.8 Other external cause status; Z91.041 Radiographic dye allergy status; Z90.49 Acquired absence of other specified parts of digestive tract; Z83.6 Family history of other diseases of the respiratory system; Z82.49 Family history of ischemic heart disease and other diseases of the circulatory system; Z83.3 Family history of diabetes mellitus; Z68.35 Body mass index [BMI] 35.0-35.9, adult

== ENCOUNTER → 2018-01-23 | Outpatient (CLI) | payer OTHER ==
[~2018-01-23] MED LIST changes: +LEVOFLOXACIN500 MG PO; +METOCLOPRAMIDE H5 M1 PO
[2018-01-23 12:52] LABS: BILIRUBIN NEGATIVE (NEGATIVE); BLOOD NEGATIVE (NEGATIVE); CLARITY CLEAR (CLEAR); COLOR YELLOW (YELLOW); GLUCOSE NEGATIVE (NEGATIVE); KETONE NEGATIVE (NEGATIVE); LEUKO ESTERASE NEGATIVE (NEGATIVE); NITRITE NEGATIVE (NEGATIVE); PH 5.5 (5.0-9.0); UROBILINOGEN 0.2 E.U./dl (0.2-1.0)
[2018-01-23 12:53] LABS: BASO # 0.1 10*3/uL (0.0-0.1); BASO % 0.5 % (0.0-1.0); EOS # 0.3 10*3/uL (0.0-0.4); EOS % 2.4 % (1.0-4.0); HEMATOCRIT 41.4 % (42.0-52.0); LYMPH # 2.6 10*3/uL (1.3-4.4); LYMPH % 22.1 % (27.0-41.0); MEAN CELL VOLUME 96.3 fl (80.0-94.0); MEAN CORPUSCULAR HGB 30.2 pg (27.0-31.0); MEAN CORPUSCULAR HGB CONC 31.4 g/dl (33.0-37.0); MEAN PLATELET VOLUME 9.4 fl (9.6-12.3); MONO % 8.4 % (3.0-9.0); NEUT # 7.7 10*3/uL (2.3-7.9); NEUT % 65.2 % (47.0-73.0); PLATELET COUNT AUTOMATED 222 10*3/uL (130-400); RED CELL DISTRI WIDTH 14.5 % (0-14.5); RETICULOCYTE % 2.33 % (0.50-2.50); WHITE BLOOD COUNT 11.8 10*3/uL (4.8-10.8)
[2018-01-23 13:22] LABS: ALBUMIN 3.5 gm/dl (3.1-4.5); BILIRUBIN, DIRECT 0.1 mg/dL (0.0-0.2); TOTAL PROTEIN 6.5 gm/dL (6.4-8.2)
[2018-01-23 13:23] LABS: ALBUMIN 3.4 gm/dl (3.1-4.5); BUN 20 mg/dl (7-24); CHLORIDE 104 mmol/L (98-107); CREATININE 1.26 mg/dL (0.70-1.30); IRON 102 ug/dL (65-175); PHOSPHOROUS 2.7 mg/dL (2.5-4.9); POTASSIUM 4.2 mmol/L (3.5-5.1); SGOT/AST 10 IU/L (3-35); SGPT/ALT 32 U/L (12-78); SODIUM 142 mmol/L (136-145); TOTAL IRON BINDING CAPACITY 384 ug/dl (250-450); TOTAL PROTEIN 6.4 gm/dL (6.4-8.2)
[2018-01-23 13:24] LABS: ALKALINE PHOSPHATASE 59 U/L (45-117)
[2018-01-23 13:31] LABS: URINE CREATININE RANDOM 84.4 mg/dL
[2018-01-23 14:21] LABS: BACTERIA TRACE
[2018-01-23 14:34] LABS: FERRITIN 49.3 ng/mL (22.0-322.0); PTH INTACT 54.6 pg/mL (14.0-72.0)
[2018-01-23 14:35] LABS: VITAMIN D, 25-HYDROXY 29.5 ng/mL (30-100)
== END | disposition home or self-care (01) ==
LOC: LAB 12:03
PROVIDERS: Internal Medicine; Internal Medicine Nephrology
DX: E11.40 Type 2 diabetes mellitus with diabetic neuropathy, unspecified (principal); E55.9 Vitamin D deficiency, unspecified; E78.5 Hyperlipidemia, unspecified; I12.9 Hypertensive chronic kidney disease with stage 1 through stage 4 chronic kidney disease, or unspecified chronic kidney disease; N18.3 Chronic kidney disease, stage 3 (moderate); D63.1 Anemia in chronic kidney disease

== ENCOUNTER → 2018-01-29 | Outpatient (CLI) | payer OTHER ==
[2018-01-29 17:08] LABS: BASO # 0.1 10*3/uL (0.0-0.1); BASO % 0.6 % (0.0-1.0); EOS # 0.3 10*3/uL (0.0-0.4); EOS % 2.2 % (1.0-4.0); HEMATOCRIT 39.3 % (42.0-52.0); HEMOGLOBIN 12.7 g/dl (14.0-18.0); LYMPH # 2.2 10*3/uL (1.3-4.4); LYMPH % 18.2 % (27.0-41.0); MEAN CELL VOLUME 96.3 fl (80.0-94.0); MEAN CORPUSCULAR HGB 31.1 pg (27.0-31.0); MEAN CORPUSCULAR HGB CONC 32.3 g/dl (33.0-37.0); MEAN PLATELET VOLUME 9.9 fl (9.6-12.3); MONO # 1.1 10*3/uL (0.1-1.0); MONO % 8.8 % (3.0-9.0); NEUT # 8.4 10*3/uL (2.3-7.9); NEUT % 69.2 % (47.0-73.0); PLATELET COUNT AUTOMATED 268 10*3/uL (130-400); RED BLOOD COUNT 4.08 10*6/uL (4.50-5.90); RED CELL DISTRI WIDTH 13.8 % (0-14.5); WHITE BLOOD COUNT 12.1 10*3/uL (4.8-10.8)
== END | disposition home or self-care (01) ==
LOC: LAB 15:30
PROVIDERS: Internal Medicine Critical Care Medicine
DX: J30.9 Allergic rhinitis, unspecified (principal); R05 Cough; R06.02 Shortness of breath

== ENCOUNTER → 2018-04-23 | Outpatient (CLI) | payer OTHER | END | disposition home or self-care (01) | LOC: WOUNDCARE 04-18 10:53 | DX: E11.622 Type 2 diabetes mellitus with other skin ulcer (principal); L98.491 Non-pressure chronic ulcer of skin of other sites limited to breakdown of skin; E11.40 Type 2 diabetes mellitus with diabetic neuropathy, unspecified; J44.1 Chronic obstructive pulmonary disease with (acute) exacerbation; E11.22 Type 2 diabetes mellitus with diabetic chronic kidney disease; I12.9 Hypertensive chronic kidney disease with stage 1 through stage 4 chronic kidney disease, or unspecified chronic kidney disease; N18.3 Chronic kidney disease, stage 3 (moderate); E78.00 Pure hypercholesterolemia, unspecified; F32.9 Major depressive disorder, single episode, unspecified ==

== ENCOUNTER → 2018-05-26 | Outpatient (CLI) | payer OTHER ==
[2018-05-26 09:37] LABS: BILIRUBIN NEGATIVE (NEGATIVE); BLOOD NEGATIVE (NEGATIVE); CLARITY SL CLOUDY (CLEAR); COLOR YELLOW (YELLOW); GLUCOSE 1+ (NEGATIVE); KETONE NEGATIVE (NEGATIVE); LEUKO ESTERASE NEGATIVE (NEGATIVE); NITRITE NEGATIVE (NEGATIVE); SPECIFIC GRAVITY 1.025 (1.005-1.030); UROBILINOGEN 0.2 E.U./dl (0.2-1.0)
[2018-05-26 10:04] LABS: ALBUMIN 3.3 gm/dl (3.1-4.5); ALKALINE PHOSPHATASE 79 U/L (45-117); BUN 18 mg/dl (7-24); CHLORIDE 102 mmol/L (98-107); CHOLESTEROL 185 mg/dL (<200); CREATININE 1.43 mg/dL (0.70-1.30); HDL CHOLESTEROL 44 mg/dl (40-60); POTASSIUM 3.9 mmol/L (3.5-5.1); SGOT/AST 10 IU/L (3-35); SGPT/ALT 22 U/L (12-78); SODIUM 139 mmol/L (136-145); TOTAL PROTEIN 6.9 gm/dL (6.4-8.2)
[2018-05-26 10:07] LABS: BILIRUBIN, DIRECT < 0.1 mg/dL (0.0-0.2); LDL CHOLESTEROL 88 mg/dL (9-159); TRIGLYCERIDES 266 mg/dl (<150); VLDL CHOLESTEROL 53 mg/dL (6-40)
[2018-05-26 10:09] LABS: BACTERIA 1+; MUCOUS 1+
[2018-05-26 10:39] LABS: VITAMIN D, 25-HYDROXY 38.9 ng/mL (30-100)
== END | disposition home or self-care (01) ==
LOC: LAB 08:36
PROVIDERS: Internal Medicine
DX: E11.40 Type 2 diabetes mellitus with diabetic neuropathy, unspecified (principal); E11.65 Type 2 diabetes mellitus with hyperglycemia; E78.5 Hyperlipidemia, unspecified; E55.9 Vitamin D deficiency, unspecified

== ENCOUNTER → 2018-06-05 | Outpatient (CLI) | payer OTHER | END | disposition home or self-care (01) | LOC: RAD 09:50 | DX: M47.892 Other spondylosis, cervical region (principal); M85.88 Other specified disorders of bone density and structure, other site ==

== ENCOUNTER → 2018-09-09 | Outpatient (CLI) | payer OTHER | LOC: RAD 10:41 | DX: R10.84 Generalized abdominal pain (principal) ==

== ENCOUNTER → 2018-10-18 | Outpatient (CLI) | payer OTHER ==
[2018-10-18 12:22] LABS: ALBUMIN 3.5 gm/dl (3.1-4.5); BILIRUBIN, DIRECT 0.1 mg/dL (0.0-0.2); CREATININE 1.45 mg/dL (0.70-1.30); POTASSIUM 4.5 mmol/L (3.5-5.1); TOTAL PROTEIN 7.2 gm/dL (6.4-8.2)
[2018-10-18 13:01] LABS: VITAMIN D, 25-HYDROXY 44.5 ng/mL (30-100)
== END | disposition home or self-care (01) ==
LOC: LAB 11:15
PROVIDERS: Internal Medicine
DX: E11.40 Type 2 diabetes mellitus with diabetic neuropathy, unspecified (principal); E11.65 Type 2 diabetes mellitus with hyperglycemia; E78.5 Hyperlipidemia, unspecified; E55.9 Vitamin D deficiency, unspecified

== ENCOUNTER → 2018-11-24 | Outpatient (CLI) | payer OTHER ==
[2018-11-24 10:53] LABS: CREATININE 1.45 mg/dL (0.70-1.30); PHOSPHOROUS 3.2 mg/dL (2.5-4.9); POTASSIUM 4.1 mmol/L (3.5-5.1)
== END | disposition home or self-care (01) ==
LOC: LAB 10:02
PROVIDERS: Internal Medicine Nephrology
DX: I12.9 Hypertensive chronic kidney disease with stage 1 through stage 4 chronic kidney disease, or unspecified chronic kidney disease (principal); E11.22 Type 2 diabetes mellitus with diabetic chronic kidney disease; N18.3 Chronic kidney disease, stage 3 (moderate); E11.65 Type 2 diabetes mellitus with hyperglycemia; D63.1 Anemia in chronic kidney disease; E55.9 Vitamin D deficiency, unspecified

== ENCOUNTER → 2018-12-05 | Outpatient (CLI) | payer OTHER | END | disposition home or self-care (01) | LOC: RAD 10:24 | DX: M19.012 Primary osteoarthritis, left shoulder (principal) ==

== ENCOUNTER → 2019-03-29 | Outpatient (CLI) | payer OTHER ==
[2019-03-29 11:22] LABS: ALBUMIN 3.7 gm/dl (3.1-4.5); ALKALINE PHOSPHATASE 101 U/L (45-117); BILIRUBIN, DIRECT < 0.1 mg/dL (0.0-0.2); BUN 18 mg/dl (7-24); CHLORIDE 106 mmol/L (98-107); CHOLESTEROL 207 mg/dL (<200); CREATININE 1.28 mg/dL (0.70-1.30); FREE T4 0.75 ng/dl (0.76-1.46); HDL CHOLESTEROL 43 mg/dl (40-60); LDL CHOLESTEROL 88 mg/dL (9-159); POTASSIUM 4.8 mmol/L (3.5-5.1); SGOT/AST 8 IU/L (3-35); SGPT/ALT 24 U/L (12-78); SODIUM 140 mmol/L (136-145); TOTAL PROTEIN 7.2 gm/dL (6.4-8.2); TRIGLYCERIDES 380 mg/dl (<150); VLDL CHOLESTEROL 76 mg/dL (6-40)
[2019-03-29 11:33] LABS: VITAMIN D, 25-HYDROXY 39.8 ng/mL (30-100)
== END | disposition home or self-care (01) ==
LOC: LAB 09:58
PROVIDERS: Internal Medicine
DX: E11.65 Type 2 diabetes mellitus with hyperglycemia (principal); E78.5 Hyperlipidemia, unspecified; I48.0 Paroxysmal atrial fibrillation; N40.0 Benign prostatic hyperplasia without lower urinary tract symptoms; E55.9 Vitamin D deficiency, unspecified

== ENCOUNTER → 2019-06-29 | Outpatient (CLI) | payer OTHER ==
[2019-06-29 10:56] LABS: BILIRUBIN NEGATIVE (NEGATIVE); BLOOD NEGATIVE (NEGATIVE); CLARITY SL CLOUDY (CLEAR); COLOR YELLOW (YELLOW); GLUCOSE NEGATIVE (NEGATIVE); KETONE NEGATIVE (NEGATIVE); LEUKO ESTERASE NEGATIVE (NEGATIVE); NITRITE NEGATIVE (NEGATIVE); UROBILINOGEN 0.2 E.U./dl (0.2-1.0)
[2019-06-29 11:26] LABS: ALBUMIN 3.7 gm/dl (3.1-4.5); ALKALINE PHOSPHATASE 50 U/L (45-117); BILIRUBIN, DIRECT < 0.1 mg/dL (0.0-0.2); BUN 24 mg/dl (7-24); CHLORIDE 109 mmol/L (98-107); CHOLESTEROL 128 mg/dL (<200); CREATININE 1.66 mg/dL (0.70-1.30); HDL CHOLESTEROL 48 mg/dl (40-60); LDL CHOLESTEROL 53 mg/dL (9-159); POTASSIUM 4.4 mmol/L (3.5-5.1); SGOT/AST 16 IU/L (3-35); SGPT/ALT 26 U/L (12-78); SODIUM 142 mmol/L (136-145); TOTAL PROTEIN 7.4 gm/dL (6.4-8.2); TRIGLYCERIDES 137 mg/dl (<150); VLDL CHOLESTEROL 27 mg/dL (6-40)
[2019-06-29 12:10] LABS: VITAMIN D, 25-HYDROXY 48.3 ng/mL (30-100)
[2019-06-29 13:42] LABS: BACTERIA 2+
== END | disposition home or self-care (01) ==
LOC: LAB 10:20
PROVIDERS: Internal Medicine
DX: E11.65 Type 2 diabetes mellitus with hyperglycemia (principal); E55.9 Vitamin D deficiency, unspecified; E11.40 Type 2 diabetes mellitus with diabetic neuropathy, unspecified; E78.5 Hyperlipidemia, unspecified; N40.0 Benign prostatic hyperplasia without lower urinary tract symptoms

== ENCOUNTER → 2019-08-27 | Outpatient (CLI) | payer OTHER | END | disposition home or self-care (01) | LOC: RAD 14:17 | DX: M25.512 Pain in left shoulder (principal); M75.82 Other shoulder lesions, left shoulder ==

== ENCOUNTER → 2019-10-01 | Outpatient (CLI) | payer OTHER ==
[2019-10-01 10:13] LABS: POTASSIUM 4.4 mmol/L (3.5-5.1)
[2019-10-01 10:22] LABS: CREATININE 1.65 mg/dL (0.70-1.30); PHOSPHOROUS 3.4 mg/dL (2.5-4.9)
== END ==
LOC: LAB 09:20
PROVIDERS: Internal Medicine Nephrology
DX: I12.9 Hypertensive chronic kidney disease with stage 1 through stage 4 chronic kidney disease, or unspecified chronic kidney disease (principal); E11.22 Type 2 diabetes mellitus with diabetic chronic kidney disease; N18.3 Chronic kidney disease, stage 3 (moderate); E11.65 Type 2 diabetes mellitus with hyperglycemia; D63.1 Anemia in chronic kidney disease; E55.9 Vitamin D deficiency, unspecified

== ENCOUNTER → 2020-01-05 | Outpatient (CLI) | payer OTHER | END | disposition home or self-care (01) | LOC: US 08:11 | DX: N28.1 Cyst of kidney, acquired (principal); I10 Essential (primary) hypertension; R79.89 Other specified abnormal findings of blood chemistry ==

== ENCOUNTER → 2020-03-01 | Outpatient (CLI) | payer MEDICARE ==
[2020-03-01 09:43] LABS: ALBUMIN 3.5 gm/dl (3.1-4.5); ALKALINE PHOSPHATASE 55 U/L (45-117); BILIRUBIN, DIRECT < 0.1 mg/dL (0.0-0.2); BUN 24 mg/dl (7-24); CHLORIDE 110 mmol/L (98-107); CHOLESTEROL 118 mg/dL (<200); CREATININE 1.88 mg/dL (0.70-1.30); HDL CHOLESTEROL 44 mg/dl (40-60); LDL CHOLESTEROL 43 mg/dL (9-159); POTASSIUM 4.1 mmol/L (3.5-5.1); SGOT/AST 16 IU/L (3-35); SGPT/ALT 31 U/L (12-78); SODIUM 141 mmol/L (136-145); TOTAL PROTEIN 7.2 gm/dL (6.4-8.2); TRIGLYCERIDES 156 mg/dl (<150); VLDL CHOLESTEROL 31 mg/dL (6-40)
[2020-03-01 10:17] LABS: VITAMIN D, 25-HYDROXY 45.4 ng/mL (30-100)
[2020-03-01 11:15] LABS: BILIRUBIN NEGATIVE (NEGATIVE); BLOOD NEGATIVE (NEGATIVE); CLARITY CLEAR (CLEAR); COLOR YELLOW (YELLOW); GLUCOSE 3+ (NEGATIVE); KETONE NEGATIVE (NEGATIVE); LEUKO ESTERASE NEGATIVE (NEGATIVE); NITRITE NEGATIVE (NEGATIVE); UROBILINOGEN 0.2 E.U./dl (0.2-1.0)
[2020-03-01 11:18] LABS: BACTERIA TRACE
== END | disposition home or self-care (01) ==
LOC: LAB 08:22
PROVIDERS: Internal Medicine
DX: E11.65 Type 2 diabetes mellitus with hyperglycemia (principal); E78.5 Hyperlipidemia, unspecified; E11.40 Type 2 diabetes mellitus with diabetic neuropathy, unspecified; N40.0 Benign prostatic hyperplasia without lower urinary tract symptoms; E55.9 Vitamin D deficiency, unspecified

== ENCOUNTER → 2020-04-01 | Outpatient (CLI) | payer MEDICARE ==
[~2020-04-01] MED LIST changes: +FENOFIBRATE145 M1 PO; +FOLBEE TABLET1 EACH PO; +MELATONIN5 M7 PO
== END | disposition home or self-care (01) ==
LOC: COVID19 00:33
DX: Z01.818 Encounter for other preprocedural examination (principal); Z11.59 Encounter for screening for other viral diseases

== ENCOUNTER → 2020-04-07 | Day surgery (SDC) | payer MEDICARE ==
[~2020-04-07] VITALS: Ht 177.8 cm; Wt 101.2 kg
[2020-04-07 07:15] VITALS: BP 129/78
[2020-04-07 08:53] VITALS: BP 91/56
[2020-04-07 09:08] VITALS: BP 115/76
[2020-04-07 09:23] VITALS: BP 102/78
== END | disposition home or self-care (01) ==
LOC: SDC 04-04 12:30
DX: Z12.11 Encounter for screening for malignant neoplasm of colon (principal); D12.3 Benign neoplasm of transverse colon; D12.8 Benign neoplasm of rectum; G47.30 Sleep apnea, unspecified; I12.9 Hypertensive chronic kidney disease with stage 1 through stage 4 chronic kidney disease, or unspecified chronic kidney disease; N18.3 Chronic kidney disease, stage 3 (moderate); E11.22 Type 2 diabetes mellitus with diabetic chronic kidney disease; K21.0 Gastro-esophageal reflux disease with esophagitis; Z98.890 Other specified postprocedural states; Z86.010 Personal history of colon polyps; Z85.038 Personal history of other malignant neoplasm of large intestine; Z79.899 Other long term (current) drug therapy; Z88.8 Allergy status to other drugs, medicaments and biological substances

== ENCOUNTER → 2020-05-17 | Outpatient (CLI) | payer MEDICARE ==
[~2020-05-17] VITALS: Ht 175.2 cm; Wt 101.2 kg
[~2020-05-17] MED LIST changes: +BASAG SOL SC; +FLOMAX0.4 MG PO; +OZEMPIC1 MG/0.75 SQ; +VENT7GM INH
--- NOTE | 2020-05-17 13:13 | NUR ---
PATIENT DOES NOT HAVE MED LIST INSTRUCTED TO BRING WITH HIM DAY OF SURGERY
[2020-05-17 13:14] VITALS: BP 141/60
[2020-05-17 14:23] LABS: BASO % 0.2 % (0.0-1.0); LYMPH # 1.9 10*3/uL (1.3-4.4); LYMPH % 22.4 % (27.0-41.0); MEAN CELL VOLUME 92.9 fl (80.0-94.0); MEAN CORPUSCULAR HGB 30.7 pg (27.0-31.0); MEAN CORPUSCULAR HGB CONC 33.1 g/dl (33.0-37.0); MEAN PLATELET VOLUME 9.7 fl (9.6-12.3); MONO # 0.8 10*3/uL (0.1-1.0); MONO % 8.8 % (3.0-9.0); NEUT # 5.8 10*3/uL (2.3-7.9); NEUT % 67.9 % (47.0-73.0); PLATELET COUNT AUTOMATED 335 10*3/uL (130-400); RED CELL DISTRI WIDTH 13.1 % (0-14.5); WHITE BLOOD COUNT 8.6 10*3/uL (4.8-10.8)
[2020-05-17 14:37] LABS: CREATININE 1.88 mg/dL (0.70-1.30); POTASSIUM 4.8 mmol/L (3.5-5.1)
== END | disposition home or self-care (01) ==
LOC: COVID19 05:33 → SDC 05:33 → COVID19 12:45
PROVIDERS: ATTEND Surgery
DX: Z01.812 Encounter for preprocedural laboratory examination (principal); I51.7 Cardiomegaly; I25.2 Old myocardial infarction; Z20.828 Contact with and (suspected) exposure to other viral communicable diseases; Z85.038 Personal history of other malignant neoplasm of large intestine

== ENCOUNTER 2020-05-23 02:58 | Inpatient (IN) | payer MEDICARE ==
[2020-05-23] VITALS (43 sets, daily range): BP systolic 77–140; BP diastolic 37–80
[~2020-05-23] VITALS: Ht 175.3 cm; Wt 106.1 kg
[~2020-05-23 02:58] MED LIST changes: -BASAG SOL SC; -FLOMAX0.4 MG PO; -OZEMPIC1 MG/0.75 SQ; -VENT7GM INH
--- NOTE | 2020-05-23 13:02 | NUR ---
ANESTHESIA NOTIFIED THAT PATIENT IS HAVING PAIN NOW 04/28. NURSING FRONT END APPLICATION DEVELOPER CALLED TO CHANGE BED TO A ICCU BED INSTEAD OF ROOM 530. LEONIE STATES SHE WILL CALL BACK WITH UPDATED ASSIGNMENT
--- NOTE | 2020-05-23 13:15 | NUR ---
PATIENT PUT ON BED CARIAS PER REQUEST. PATIENT 91% ON ROOM AIR 2L NASAL CANNULA STARTED
--- NOTE | 2020-05-23 14:10 | NUR ---
A 69, admitted to ICCU, under the services of LUCIEN Fry DO with a diagnosis of POST OP COLECTOMY. Chief complaint is POST OP COLECTOMY . Patient arrived via bed from [place]. Monitor applied. Initial assessment completed. Vital signs taken and recorded. LUCIEN FRY DO notified of admission to the unit. Orders received. See assessment for past medical history, medications and allergies. Patient and/or family oriented to unit. [facility]U visitation policy reviewed. Clothing/patient valuable form completed. WILBERTO KIRBY
--- NOTE | 2020-05-23 14:29 | NUR ---
PT MEDICATED WITH DILAUDID 1MG IV FOR C/O 10/10 PAIN TO SURGICAL SITE.
--- NOTE | 2020-05-23 14:42 | NUR ---
PT INSTRUCTED ON USE OF IS. PT ABLE TO DEMONSTRATE PROPER TECHNIQUE AND ACHIEVE 1500 CC. WILL FOLLOW UP WITH PT LATER TO REASSESS. PT INSTRUCTED TO USE IS Q 1 HR W/A.
--- NOTE | 2020-05-23 15:29 | NUR ---
PT STATED DILAUDID WAS EFFECTIVE IN EASING HIS SURGICAL SITE ABD PAIN.
[2020-05-23 15:50] LABS: BASO % 0.1 % (0.0-1.0); HEMATOCRIT 30.8 % (42.0-52.0); LYMPH # 0.8 10*3/uL (1.3-4.4); LYMPH % 4.2 % (27.0-41.0); MEAN CELL VOLUME 97.5 fl (80.0-94.0); MEAN CORPUSCULAR HGB 30.4 pg (27.0-31.0); MEAN CORPUSCULAR HGB CONC 31.2 g/dl (33.0-37.0); MEAN PLATELET VOLUME 9.2 fl (9.6-12.3); MONO # 1.4 10*3/uL (0.1-1.0); MONO % 7.5 % (3.0-9.0); NEUT # 16.5 10*3/uL (2.3-7.9); NEUT % 87.9 % (47.0-73.0); PLATELET COUNT AUTOMATED 321 10*3/uL (130-400); RED BLOOD COUNT 3.16 10*6/uL (4.50-5.90); RED CELL DISTRI WIDTH 13.1 % (0-14.5); WHITE BLOOD COUNT 18.8 10*3/uL (4.8-10.8)
--- NOTE | 2020-05-23 17:23 | NUR ---
PT ASSISTED OUT OF BED IN TO RECLINER CHAIR AT HIS REQUEST. PT TOLERATED WELL.
--- NOTE | 2020-05-23 18:00 | NUR ---
PT MEDICATED WITH DILAUDID 1MG IV FOR C/O SURGICAL SITE ABD PAIN.
--- NOTE | 2020-05-23 20:23 | NUR ---
PT. UP IN CHAIR, BACK TO BED WITH ONE ASSIST. TOLERATED WELL. HEP LOCKS IN RW AND RA ASYMPT. NS AND NEOSYNEPHRINE CONTINUE ORDERD. LUNGS DIMINISHED WITH EXP. WHEEZES BILAT, PULSE OX 97% ON 2L NC. BREATHING TREATMENT IN PROGRESS. SCD'S ON BILAT. HAWKINS CATH DRAINING A PALE LIZETTE URINE. ADOMINAL DRESSINGS D/I. SOFIA DALE RN
--- NOTE | 2020-05-23 22:00 | NUR ---
PT. GIVEN DILAUDID AT 2124 FOR ABD PAIN, RATED #8 ON 1-10 PAIN SCALE. CURRENTLY SLEEPING, DILAUDID EFFECTIVE. SOFIA DALE RN
--- NOTE | 2020-05-23 22:27 | NUR ---
PT. GIVEN RESTORIL AT 2126 PER REQUEST, SLEEPING CURRENTLY, RESTORIL EFFECTIVE. SOFIA DALE RN
[2020-05-24] VITALS (43 sets, daily range): BP systolic 92–138; BP diastolic 51–75
--- NOTE | 2020-05-24 01:58 | NUR ---
PT. GIVEN DILAUDID ORDERED FOR COMPLAINTS OF PAIN. STATED PAIN #8 ON 1-10 PAIN SCALE. SOFIA DALE RN
--- NOTE | 2020-05-24 02:14 | NUR ---
PT. STATED DILAUDID EFFECTIVE FOR PAIN.
--- NOTE | 2020-05-24 05:30 | NUR ---
PT. GIVEN DILAUDID AT 0519 ORDERED PER PT. REQUEST FOR PAIN MED, RATED #8 ON 1-10 PAIN SCALE. ALSO GIVEN ZOFRAN AT 0525 ORDERED FOR COMPLAINTS OF NAUSEA.
--- NOTE | 2020-05-24 05:46 | NUR ---
PT. SLEEPING, DILAUDID AND ZOFRAN EFFECTIVE. SOFIA DALE RN
[2020-05-24 06:00] LABS: HEMATOCRIT 28.8 % (42.0-52.0); MEAN CELL VOLUME 96.6 fl (80.0-94.0); MEAN CORPUSCULAR HGB 29.9 pg (27.0-31.0); MEAN CORPUSCULAR HGB CONC 30.9 g/dl (33.0-37.0); MEAN PLATELET VOLUME 9.5 fl (9.6-12.3); PLATELET COUNT AUTOMATED 306 10*3/uL (130-400); RED BLOOD COUNT 2.98 10*6/uL (4.50-5.90); RED CELL DISTRI WIDTH 13.4 % (0-14.5); WHITE BLOOD COUNT 18.9 10*3/uL (4.8-10.8)
[2020-05-24 06:02] LABS: CREATININE 1.81 mg/dL (0.70-1.30); POTASSIUM 4.2 mmol/L (3.5-5.1); TOTAL PROTEIN 5.9 gm/dL (6.4-8.2)
[2020-05-24 06:22] LABS: BURR CELLS FEW; PLATELET SUFFICIENCY NORMAL (NORMAL); POLYCHROMASIA SLIGHT; TOTAL CELLS COUNTED 100 #CELLS
--- NOTE | 2020-05-24 08:13 | NUR ---
MEDICATED WITH DILAUDID 1MG IV FOR COMPLAINTS OF PAIN IN ABDOMEN. RATES PAIN A 8 ON A PAIN SCALE OF 1-10
[2020-05-24 08:20] LABS: PTH INTACT 112.9 pg/mL (18.5-88.0)
--- NOTE | 2020-05-24 09:00 | NUR ---
DILAUDID EFFECTIVR FOR PAIN. PLACED UP INTO CHAIR WITH ASSIST TIMES ONE. TOLERATED WELL.
--- NOTE | 2020-05-24 09:40 | NUR ---
DANITZA TURNED OFF
--- NOTE | 2020-05-24 11:25 | NUR ---
PHYSICAL THERAPY Physical Therapy evaluation completed in [facility]U-5 with full evaluation to follow. Recommend physical therapy per plan of care and SNF upon discharge. Thank you for this referral. Lynne Butler PT
--- NOTE | 2020-05-24 11:27 | NUR ---
Occupational Therapy evaluation completed on ICCU with full evaluation to follow. Recommend occupational therapy per plan of care and SNF upon discharge. Thank you for this referral. Katie Snow OTR/L
--- NOTE | 2020-05-24 11:46 | NUR ---
MEDICATED WITH DILAUDID 1MG AND ZOFRAN 4MG FOR COMPLAINTS OF ABDOMINAL PAIN AND NAUSEA. RATES PAIN A 8 ON A PAIN SCALE OF 1-10
--- NOTE | 2020-05-24 12:15 | NUR ---
VOICES THAT DILAUDID WAS EFFECTIVE FOR PAIN
[2020-05-24] MEDS ORDERED: BASAG SOL SC (15:27)
[2020-05-24] MEDS ORDERED: FLOMAX0.4 MG PO (15:27)
[2020-05-24] MEDS ORDERED: OZEMPIC1 MG/0.75 SQ (15:30)
[2020-05-24] MEDS ORDERED: PROPAFENONE HC150 MG PO (15:30)
[2020-05-24] MEDS ORDERED: VENT7GM INH (15:31)
--- NOTE | 2020-05-24 15:32 | NUR ---
MED REC UPDATED PER [facility]
--- NOTE | 2020-05-24 16:12 | NUR ---
MEDICATED WITH DILAUDID 1MG IV FOR COMPLAINTS OF INCISIONAL PAIN. RATES PAIN A 6 ON A PAIN SCALE OF 1-10. PLACED BACK TO BED PRIOR TO GIVING IV DILAUDID
--- NOTE | 2020-05-24 19:59 | NUR ---
DR. SIERRA NOTIFIED OF PT. RESPIRATORY STATUS AND CHANGE FROM PREVIOUS NIGHT. PT'S HR 120-130'S. RESP. 30 AND MOIST WELLNESS CONSULTANT COUGH NOTED WITH RALES BILAT. IVF CONTINUE ORDERED. SOFIA DALE RN
--- NOTE | 2020-05-24 20:18 | NUR ---
PT. GIVEN MELBAID AND LIUDMILA AT 4 FOR COMPLAINTS OF ABD PAIN AND NAUSEA. WILL CONTINUE TO MONITOR.
--- NOTE | 2020-05-24 20:42 | NUR ---
PT. STATES DILAUDID AND ZOFRAN EFFECTIVE FOR PAIN AND NAUSEA.
--- NOTE | 2020-05-24 20:43 | NUR ---
PT. RESTING IN BED. LUNGS DIMINISHED WITH PB RALES BILAT. MOIST LAMINATION ASSEMBLER COUGH NOTED. PT. SOB AT REST, INCREASING WITH EXERTION. PULSE OX 94-96% ON 2L NC. ABDOMEN SOFTLY DISTENDED AND NORMO. MIDLINE DRESSING AND SMALLER DRESSINGON LEFT ABD D/I. NO PERIPHERAL EDEMA NOTED. SCD'S INTACT. DR. SIERRA NOTIFIED OF PT'S CHANGE IN RESP. STATUS FROM PREVIOUS NIGHT. DR. SIERRA, DR. PHILIP AND RESIDENT DOWN TO SEE PT. ORDERS RECEIVED. SOFIA DALE RN
--- NOTE | 2020-05-24 21:44 | NUR ---
PT. GIVEN RESTORIL AT 2120 ORDERED PER PT REQUEST FOR SLEEP AIDE.
--- NOTE | 2020-05-24 22:25 | NUR ---
LASIX GIVEN AND IVF DISCONTINUED ORDERED.
--- NOTE | 2020-05-24 22:26 | NUR ---
RESTORIL EFFECTIVE, PT. SLEEPING.
--- NOTE | 2020-05-24 23:20 | NUR ---
DR. SIERRA NOTIFIED OF PATIENTS INABILITY TO VOID, ORDERS RECEIVED TO STRAIGHT CATH. SOFIA DALE RN
--- NOTE | 2020-05-24 23:33 | NUR ---
UNABLE TO BLADDER SCAN DUE TO BULKY ABD SURGICAL DRESSING. PT. STATED UNABLE TO VOID SINCE BEING GIVEN LASIX FOR SOB. PT. STRAIGHT CATHED FOR 800CC'S DARK YELLOW URINE. TOLERATED WELL. WILL CONTINUE TO MONITOR. SOFIA DALE RN
--- NOTE | 2020-05-24 23:51 | NUR ---
PT. GIVEN DILAUDID AT 2348 FOR COMPLAINTS OF ABD PAIN. RATED #8 ON 1-10 PAIN SCALE.
[2020-05-25] VITALS: BP 122/66
--- NOTE | 2020-05-25 00:17 | NUR ---
PT. SLEEPING DILAUDID EFFECTIVE FOR PAIN. RESP. EASIER. SOFIA DALE RN
[2020-05-25 04:00] VITALS: BP 121/65
--- NOTE | 2020-05-25 04:49 | NUR ---
PT. GIVEN DILAUDID AT 0447 FOR COMPLAINTS OF ABD PAIN, RATED #8 ON 1-10 PAIN SCALE.
--- NOTE | 2020-05-25 04:58 | NUR ---
PT. STATES DILAUDID EFFECTIVE FOR PAIN.
--- NOTE | 2020-05-25 05:30 | NUR ---
HAWKINS CATHETER REINSERTED DUE TO PATIENTS INABILITY TO URINATE. 450CC'S DARK YELLOW URINE RETURNED UPON INSERTION. SOFIA DALE RN
[2020-05-25 06:29] LABS: BASO % 0.1 % (0.0-1.0); HEMATOCRIT 24.7 % (42.0-52.0); LYMPH # 0.6 10*3/uL (1.3-4.4); LYMPH % 3.7 % (27.0-41.0); MEAN CELL VOLUME 96.5 fl (80.0-94.0); MEAN CORPUSCULAR HGB 30.1 pg (27.0-31.0); MEAN CORPUSCULAR HGB CONC 31.2 g/dl (33.0-37.0); MEAN PLATELET VOLUME 9.9 fl (9.6-12.3); MONO # 0.8 10*3/uL (0.1-1.0); MONO % 5.2 % (3.0-9.0); NEUT # 14.5 10*3/uL (2.3-7.9); PLATELET COUNT AUTOMATED 229 10*3/uL (130-400); RED BLOOD COUNT 2.56 10*6/uL (4.50-5.90); RED CELL DISTRI WIDTH 13.8 % (0-14.5); WHITE BLOOD COUNT 16.2 10*3/uL (4.8-10.8)
[2020-05-25 06:57] LABS: CREATININE 2.01 mg/dL (0.70-1.30); POTASSIUM 4.4 mmol/L (3.5-5.1)
[2020-05-25 08:00] VITALS: BP 124/65
--- NOTE | 2020-05-25 08:20 | NUR ---
DR HENRIQUEZ IN ICU AND MADE AWARE OF PT'S RESPIRATORY STATUS, RHONCHI, WHEEZES NOTED.
--- NOTE | 2020-05-25 09:15 | NUR ---
Structural Steel Painter in to talk to patient. Patient states lives at home with alone. There are 4 steps in the home. Physician: stanley garvey Pharmacy: [facility] health services: none Patient's level of ADLs: INDEPENDENT Patient has working utilities: all working DME: [employer] Follow-up physician's appointment after d/c: will be made by hospitalist nurse director upon discharge Does patient want to access PORTAL?: no Discharge plan discussed with patient, he states he normally uses a long, was independent in adls and ambulation, drives, he stated when he is discharged his sister is going to stay with him. discussed with him physical therapy recommendation of patient going to a short term skilled for 5 days of therapy and 24 hour care prior to returning home, he states he doesn't know if he wants to do this or not. he would like some time to think about it. also educated him on VNA and the services they offer.. he again stated he would like to think about these options, case management will talk with patient at a later time regarding home needs vs SNF. ELIAZAR BETANCOURT
--- NOTE | 2020-05-25 09:30 | NUR ---
PHYSICAL THERAPY Patient seen this am 1:1 for therapy visit and was supine in bed upon therapist arrival. Patient identified by name / and presented with contiuous O2-2L via NC, recording resting SpO2 94%, HR 104 bpm. Patient also reports 4/10 abdominal pain prior to transfering supine to sit EOB with MIN A, tolerating a minute or so of static EOB sit to collect himself. Patient completed sit to stand transfer, CGA, demonstrating slow rise, then ambulated with use of wh walker, 10' x 2 to bathroom, CGA demonstrating very slow, cautious gait pattern. Patient recorded SpO2 87%, HR 109 bpm following gait ex while returning to bedside chair. Patient reported slight increase in abdominal pain during gait ex, 6/10 as vital signs returned to baseline following approx 1 minute seated rest as he remained upright in chair with call light, tray table and telephone. Will continue per POC as tolerated, total treatment time 16 minutes. Jet Elizalde, RAFTSMAN
--- NOTE | 2020-05-25 09:46 | NUR ---
OT NOTE Pt was seen this A.M. 1:1 for 26 minute OT session. Upon arrival pt was supine in bed. Pt identified by name and and had complaints of 4/10 abdominal pain at rest and 6/10 with activity. Pt presented to therapy with continuous 2L-O2 via NC which he remained on throughout the entire session. Pt's resting SpO2 read 94% and heart rate 104 bpm. Pt transferred supine to sit EOB with Trever. Sit to stand completed from bed level with Trever and use of w/w for UE support. Challenged pt's static standing tolerance needed for increased I in self care tasks and functional transfers. Pt was able to tolerate aprox 2-3 minutes at a time before sitting due to fatigue. After a seated rest break pt completed functional mobility into the bathroom with CGA and use of w/w. Throughout pt's heart rate raised to 120 bpm and SpO2 read 87%, after aprox 20 seconds raised to 94%. Pt transferred on to standard commode with CGA and off with Trever due to low surface. Clothing management completed with Trever. Functional mobility completed back to the recliner with CGA and use of w/w for UE support. Pt was left sitting upright in the recliner with call light in hand, tray table in place, and ICCU nurse notified. Continue with rec D/C plan to SNF. MILADYS Rea
--- NOTE | 2020-05-25 09:46 | NUR ---
PT ASSISTED OUT OF BED IN TO RECLINER CHAIR.
[2020-05-25 12:00] VITALS: BP 113/57
--- NOTE | 2020-05-25 14:43 | NUR ---
DR CARMONA NOTIFIED OF NEW CONSULT ORDER.
[2020-05-25 14:48] LABS: ABG BASE EXCESS -4.8 mmol/L (-2.0-2.0); ARTERIAL BLOOD GAS PH 7.342 (7.35-7.45)
[2020-05-25 16:00] VITALS: BP 113/59
--- NOTE | 2020-05-25 18:14 | NUR ---
PT ASSISTED BACK IN TO BED FROM RECLINER CHAIR. INSTRUCTED ON INCENTIVE SPIROMETRY AND PT DEMONSTRATED PROPER USE TO ME. PT MEDICATED WITH DILAUDID 1MG IV FOR C/O SURGICAL SITE PAIN.
--- NOTE | 2020-05-25 18:42 | NUR ---
pt stated dilaudid was effective in easing his surgical site pain.
[2020-05-25 20:00] VITALS: BP 110/68
--- NOTE | 2020-05-25 20:16 | NUR ---
193 RESTING IN BED WITH HOB ELEVATED. SIDE RAILS UP X'S 2. CALL LIGHT IN REACH. PULSE OX 93% ON 2L 02 VIA NC. PT ALERT AND PLEASANT, HEP LOCK INTACT RW. HAWKINS PATENT AND DRAINING CLEAR YELLOW URINE. ABD DRSG D/I WITH NO DRNG NOTED. NO C/O'S PAIN OR DISCOMFORT VOICED AT PRESENT. NO DISTRESS NOTED. 1944 PT PLACED ON BIPAP PER ORDER. DR CARMONA. TO HAVE ABG'S DONE 2HOURS AFTER BIPAP APPLIED.
--- NOTE | 2020-05-25 21:06 | NUR ---
RESTORIL PO GIVEN FOR SLEEP. WILL MONITOR.
[2020-05-25 21:52] LABS: ABG BASE EXCESS -3.8 mmol/L (-2.0-2.0); ARTERIAL BLOOD GAS PH 7.359 (7.35-7.45)
--- NOTE | 2020-05-25 22:00 | NUR ---
DR. CARMONA CALLED WITH ABG RESULTS PER RT.
--- NOTE | 2020-05-25 22:06 | NUR ---
2206 EARLIER RESTORIL EFFECTIVE. RESTING IN BED WITH EYES CLOSED.
[2020-05-26] VITALS: BP 142/87
--- NOTE | 2020-05-26 00:10 | NUR ---
DILAUDID 1MG IV GIVEN FOR C/O'S POST-OP ABD PAIN. WILL MONITOR. BIPAP INTACT. PULSE OX 100%.
--- NOTE | 2020-05-26 01:10 | NUR ---
0110 EARLIER PAIN MED EFFECTIVE. RESTING IN BED WITH EYES CLOSED.
--- NOTE | 2020-05-26 02:06 | NUR ---
RESTING IN BED WITH EYES CLOSED. APPEARS TO BE SLEEPING. BIPAP REMAINS INTACT.
[2020-05-26 04:00] VITALS: BP 137/81
[2020-05-26 06:05] LABS: BASO % 0.1 % (0.0-1.0); HEMATOCRIT 24.7 % (42.0-52.0); LYMPH # 0.6 10*3/uL (1.3-4.4); LYMPH % 4.8 % (27.0-41.0); MEAN CELL VOLUME 96.1 fl (80.0-94.0); MEAN CORPUSCULAR HGB 30.4 pg (27.0-31.0); MEAN CORPUSCULAR HGB CONC 31.6 g/dl (33.0-37.0); MEAN PLATELET VOLUME 9.8 fl (9.6-12.3); MONO # 0.6 10*3/uL (0.1-1.0); MONO % 4.5 % (3.0-9.0); NEUT # 11.9 10*3/uL (2.3-7.9); NEUT % 89.7 % (47.0-73.0); NUCLEATED RED BLOOD CELL 0.2 % (0.0-0.0); PLATELET COUNT AUTOMATED 255 10*3/uL (130-400); RED BLOOD COUNT 2.57 10*6/uL (4.50-5.90); RED CELL DISTRI WIDTH 13.2 % (0-14.5); WHITE BLOOD COUNT 13.3 10*3/uL (4.8-10.8)
[2020-05-26 06:10] LABS: CREATININE 1.74 mg/dL (0.70-1.30); POTASSIUM 4.2 mmol/L (3.5-5.1)
--- NOTE | 2020-05-26 06:28 | NUR ---
050 BIPAP REMOVED PER PT REQUEST. TOLERATED WELL. PLACED BACK ON 2L O2 VIA NC. PULSE OX 93%. NO C/O'S VOICED. CONDITION GUARDED.
[2020-05-26 08:00] VITALS: BP 143/91
--- NOTE | 2020-05-26 09:50 | NUR ---
OT NOTE Pt was seen this A.M. 1:1 for 15 minute OT session. Upon arrival pt was sitting upright in the recliner. Pt identified by name and and had no complaints at this time. Pt presented to therapy with continuous 2L-O2 via NC which he remained on throughout the entire session. Pt's resting heart rate read 85 bpm and SpO2 read 94%. Pt completed sit to stand from chair level with CGA and use of w/w for UE support. Challenged pt's static standing tolerance needed for increased I in self care tasks and functional transfers. Pt was able to tolerate aprox 3-4 minutes at a time before sitting due to fatigue. Sit to stand completed from chair level again at CGA and use of w/w for UE support. Functional mobility completed to the bathroom and back with CGA and use of w/w with one standing rest break. Throughout mobility while pt was turning pt had LOB due to lifting the walker from the ground requiring Trever to correct. SpO2 read 94% and heart rate 99 bpm throughout activity. Pt was left sitting upright in the recliner with call light in hand, tray table in place, and phone in reach. Continue with rec D/C plan to SNF. MILADYS Rea
--- NOTE | 2020-05-26 09:54 | NUR ---
PHYSICAL THERAPY TREATMENT TIME: IN 09:40 AM - OUT 09:55 AM 15 MINUTES TOTAL PRESENTATION: Patient was sitting in bedside chair 2 liters of spO2 VIA NASAL CANULA Catheter present Informed consent given for treatment Identified by name and on wristband COMPLAINTS: No pain level 0/10 WB STATUS: No wt. bearing restrictions ASSISTIVE DEVICE: Wh Walker TRANSFERS: STS <> bedside chair: CGA- SBA TREATMENT: GAIT with Wh Walker and CGA for 35' x 1 With 2 liters of spO2 VIA NASAL CANULA RESPONSE TO TREATMENT: Patient had no LOB and only mild SOB with gait O2 SAT was measured at 94% and pulse at 99 post ambulating the 35' x 1 CONCLUSION: Patient was left in bedside chair with call light within reach LEs in low position Patient connected to monitor DAJA HAWK LABOR CONTRACTOR
--- NOTE | 2020-05-26 10:05 | NUR ---
HAWKINS CATHETER DISCONTINUED.
[2020-05-26 12:00] VITALS: BP 127/77
[2020-05-26 16:00] VITALS: BP 102/63; BP 123/74
--- NOTE | 2020-05-26 16:03 | NUR ---
MEDICATED WITH DILAUDID 1MG IV FOR COMPLAINTS OF PAIN IN ABDOMEN. RATES PAIN A 5 ON A PAIN SCALE OF 1-10
--- NOTE | 2020-05-26 16:30 | NUR ---
VOICES THAT DILAUDID WAS EFFECTIVE
[2020-05-26 20:00] VITALS: BP 121/70
--- NOTE | 2020-05-26 20:00 | NUR ---
PT RESTING IN BED AWAKE, ALERT AND ORIENTED. RESP NONLABOREE. NO ACUTE DISTRESS NOTED. NO COMPLAINTS VOICED. HEPLOCK PATENT. NO S/S OF HYPO/HYPERGLYCEMIA NOTED.
--- NOTE | 2020-05-26 20:30 | NUR ---
PT TRANSFERRED TO ROOM 424, MONITOR APPLIED. LOPRESSOR AND RHYTHMOL GIVEN EARLY FOR HR 120-130'S. REPORT GIVEN TO LACIE.
--- NOTE | 2020-05-26 22:10 | NUR ---
PATIENT HR REMAINS 130'S-140'S AFTER RECEIVING LOPRESSOR AND RHYTHMOL EARLY. PATIENT LAYING IN BED. RESPIRATIONS EASY, NON LABORED. PATIENT IS C/O ABDOMINAL PAIN. STATES HE HAS NOT HAD A BOWEL MOVEMENT SINCE BEFORE SURGERY AND IS NOT PASSING ANY GAS. C/O INTERMITTENT NAUSEA. BSX4 ABDOMEN DISTENDED. NOTIFIED DR. ADAMS. HE STATED HE WOULD LOOK INTO IT. NO ORDERS RECEIVED. WILL CONTINUE TO MONITOR.
--- NOTE | 2020-05-26 23:44 | NUR ---
PATIENT HR 149. IV LOPRESSOR 2.5MG GIVEN AT THIS TIME. WILL CONTINUE TO MONTIOR.
[2020-05-27] VITALS: BP 140/91
--- NOTE | 2020-05-27 00:08 | NUR ---
PATIENT PUKING UP DARK EMESIS. HR REMAINS 130'S-140'S. PATIENT C/O LOWER ABDOMINAL PAIN. NOTIFIED DR. ADAMS. SEE NEW ORDERS.
[2020-05-27 00:32] VITALS: BP 131/85
--- NOTE | 2020-05-27 00:37 | NUR ---
PATIENT OFF FLOOR FOR KUB.
[2020-05-27 00:41] LABS: BASO % 0.1 % (0.0-1.0); HEMATOCRIT 28.4 % (42.0-52.0); LYMPH # 1.4 10*3/uL (1.3-4.4); LYMPH % 8.1 % (27.0-41.0); MEAN CELL VOLUME 95.6 fl (80.0-94.0); MEAN CORPUSCULAR HGB CONC 31.3 g/dl (33.0-37.0); MEAN PLATELET VOLUME 9.4 fl (9.6-12.3); MONO # 0.8 10*3/uL (0.1-1.0); MONO % 4.6 % (3.0-9.0); NEUT # 15.3 10*3/uL (2.3-7.9); NEUT % 86.3 % (47.0-73.0); RED BLOOD COUNT 2.97 10*6/uL (4.50-5.90); RED CELL DISTRI WIDTH 13.3 % (0-14.5); WHITE BLOOD COUNT 17.7 10*3/uL (4.8-10.8)
[2020-05-27 00:43] LABS: PLATELET COUNT AUTOMATED 359 10*3/uL (130-400)
[2020-05-27 00:57] LABS: CREATININE 1.75 mg/dL (0.70-1.30); POTASSIUM 4.6 mmol/L (3.5-5.1)
--- NOTE | 2020-05-27 01:15 | NUR ---
DR. PHILIP ON FLOOR. NOTIFIED HER PATIENT HEART RATE REMAINS 120'S-140'S. STATED SHE WOULD ORDER SOMETHING.
--- NOTE | 2020-05-27 01:23 | NUR ---
NOTIFIED DR. SIERRA OF THE RESULTS OF THE KUB SHOWING FINDINGS CONSISENT WITH OBSTRUCTION OR ILEUS. PER DR. SIERRA MAKE PATIENT NPO. THIS NURSE ASKED DR. SIERRA IF DR. VERDUGO NEEDED NOTIFIED. PER DR. SIERRA UNLESS PATIENT CONTINUES TO VOMIT, DR. VERDUGO DOES NOT NEED CALLED. IF PATIENT CONTINUES TO VOMIT THEN WE WILL NOTIFY DR. VERDUGO. PATIENT MAY NEED A NG TUBE PLACED. IV FLUIDS TO BE ORDERED. WILL CONTINUE TO MONITOR.
--- NOTE | 2020-05-27 01:36 | NUR ---
PATIENT STILL PUKING, DRY HEAVING. HR 120'S-140'S. NOTIFIED DR. SIERRA. STATED TO CALL [facility] NOW AND SEE IF HE WANTS A NG TUBE PLACED.
--- NOTE | 2020-05-27 01:42 | NUR ---
CALLED DR. VERDUGO TO NOTIFY HIM OF THE KUB RESULTS AND PATIENTS CONDITION. PER DR. VERDUGO HOLD OFF ON A NG TUBE. KEEP PATIENT NPO. DR. VERDUGO AWARE OF PATIENTS CONTINUED HIGH HEART RATE. DR. VERDUGO STATED HE WOULD SEE PATIENT IN THE MORNING. NO OTHER ORDERS RECEIVED. NOTIFIED DR. SIERRA.
--- NOTE | 2020-05-27 02:38 | NUR ---
PATIENT HAS REFUSED TO WEAR BIPAP FOR THE NIGHT, NAUSEA AND VOMIING THROUGH THE NIGHT.
--- NOTE | 2020-05-27 03:41 | NUR ---
PATIENT STILL C/O NAUSEA AND NOW HEART BURN. NOTIFIED DR. SIERRA. SEE NEW ORDERS.
--- NOTE | 2020-05-27 03:54 | NUR ---
PATIENT CONTINUES TO PUKE AND C/O HEART BURN. MEDICATED WITH B0TH PROTONIX AND ZOFRAN. IV FLUIDS RUNNING AT 80ML/HR INTO RW IV. PATIENT HELPED INTO CHAIR AND RECLINED. HR REMAINS IN THE 120'S. PATIENT VOICES NO COMPLAINTS OTHER COMPLAINTS AT THIS TIME. CALL LIGHT WITHIN REACH. WILL CONTINUE TO MONITOR.
[2020-05-27 03:56] VITALS: BP 119/53
--- NOTE | 2020-05-27 06:00 | NUR ---
NOTIFIED DR. ADAMS PATIENT COVERTED BACK INTO NSR AT 6314. ALSO ASKED DR. ADAMS IF I SHOULD GIVE PATIENT RYTHMOL SINCE PATIENT IS NPO. HE STATED TO GO AHEAD AND GIVE IT.
[2020-05-27 06:59] LABS: BASO % 0.2 % (0.0-1.0); EOS % 0.2 % (1.0-4.0); HEMATOCRIT 28.1 % (42.0-52.0); LYMPH # 1.7 10*3/uL (1.3-4.4); LYMPH % 9.2 % (27.0-41.0); MEAN CELL VOLUME 94.6 fl (80.0-94.0); MEAN CORPUSCULAR HGB 30.3 pg (27.0-31.0); MEAN PLATELET VOLUME 9.4 fl (9.6-12.3); MONO # 1.3 10*3/uL (0.1-1.0); NEUT # 14.9 10*3/uL (2.3-7.9); NEUT % 82.3 % (47.0-73.0); NUCLEATED RED BLOOD CELL 0.1 % (0.0-0.0); PLATELET COUNT AUTOMATED 359 10*3/uL (130-400); RED BLOOD COUNT 2.97 10*6/uL (4.50-5.90); RED CELL DISTRI WIDTH 13.3 % (0-14.5); WHITE BLOOD COUNT 18.2 10*3/uL (4.8-10.8)
[2020-05-27 07:14] LABS: CREATININE 1.55 mg/dL (0.70-1.30); POTASSIUM 4.9 mmol/L (3.5-5.1)
[2020-05-27 08:00] VITALS: BP 143/73
--- NOTE | 2020-05-27 09:00 | NUR ---
PHYSICAL THERAPY Patient seen this am 1;1 for therapy visit and was sitting up in bedside chair upon therapist arrival. Patient identified by name / and reports 3/10 abdominal pain. OT server service assistant was also present this morning for observation only as patient reported several episodes of Emesis last night. Patient presents with both continuos O2-2L via NC and IV treatment, transfering sit to stand from low chair surface, MIN A x 1 and tolerating approx 2 minutes static stand with use of wh walker standing support. Patient also instructed on then performed seated B LE therex, all planes x 10 reps each without c/o and remained in chair with call light, tray table, telphone, body alarm for safety. Will continue per POC as tolerated, total treatment time 15 minutes. Jet Elizalde SPONGE FISHERMAN remained in bedside chair with call light, tray table,
--- NOTE | 2020-05-27 09:00 | NUR ---
case management visits with patient, he was sitting in a chair in room. discussed with him a short term usp for 5 days of rehab and 24 hour care, he declines stated his sister is going to stay with him when he is discharged home. also discussed VNA and he stated he would agree to this. given choice of companies he chose [employer], will send a referral to [facility] for when patient is discharged. case management will follow
--- NOTE | 2020-05-27 09:04 | NUR ---
OT NOTE Pt was seen this A.M. 1:1 for 16 minute OT session. Upon arrival pt was sitting on the commode. Pt identified by name and and had complaints of 2-3/10 abdominal pain. Pt presented to therapy with continuous 2L-O2 via NC which he remained on throughout the entire session. Sit to stand completed from standard commode with CGA and use of grab bar for UE support. Functional mobility completed back to the recliner with CGA and use of w/w. Throughout pt required constant verbal prompts for slowing down due to being impulsive increasing risk of falls. After a seated rest break pt completed BUE AROM over all planes of motion for 1 X 10 to increase and restore maximum functional use. Pt was left sitting upright in the recliner with call light in hand, tray table in place, and body alarm activated for safety. Continue with rec D/C plan to SNF. MILADYS Rea
--- NOTE | 2020-05-27 09:53 | NUR ---
NG TUBE PLACED AT THIS TIME. CIELO BABCOCK ASSISSTED. PT TOLERATED. 200 CC OUTPUT.
[2020-05-27 12:00] VITALS: BP 136/66
--- NOTE | 2020-05-27 13:10 | NUR ---
case management faxed to Monika at [facility] patient's home health referral and face to face for when patient is discharged to home, case management will follow
--- NOTE | 2020-05-27 15:16 | NUR ---
PT IS COMPLAINING NAUSEA AND DRY HEAVES. PRN ZOFRAN ADMINISTERED AT THIS TIME. WILL MONITOR FOR EFFECTIVENESS.
--- NOTE | 2020-05-27 15:25 | NUR ---
DR. ZUNIGA NOTIFIED OF PATIENT'S ELEVATED HEART RATE AND POSSIBLE CONVERSION BACK TO AFIB. AWAITING ORDERS.
[2020-05-27 16:00] VITALS: BP 131/68
--- NOTE | 2020-05-27 16:00 | NUR ---
PT STATES ZOFRAN WAS EFFECTIVE.
--- NOTE | 2020-05-27 19:30 | NUR ---
PATIENT SITTING ON SIDE OF THE BED. VOICES NO COMPLAINTS AT THIS TIME. STATES HE HAS HAD DIARRHEA OFF AND ON THROUGHTOUT THE DAY. NG INTACT IN RIGHT NOSTRIL. VSS. NO SIGNS OF DISTRESS. WILL CONTINUE TO MONITOR.
--- NOTE | 2020-05-27 20:33 | NUR ---
PATIENT NAUSEA. MEDICATED WITH ZOFRAN AT THIS TIME. WILL CONTINUE TO MONITOR.
--- NOTE | 2020-05-27 22:07 | NUR ---
NOTIFIED DR. MAHER OF PATIENT HR IN THE 110'S-120'S AT REST. PATIENT UNABLE TO RECEIVE HIS PO LOPRESSOR DUE TO BEING NPO. PER DR. MAHER OKAY TO GIVE 2.5 IV LOPRESSOR NOW. ORDERS PLACED.
[2020-05-28] VITALS: BP 150/77
--- NOTE | 2020-05-28 01:38 | NUR ---
PATIENT NAUSEA,DRY HEAVING. MEDICATED WITH ZOFRAN AT THIS TIME. WILL CONTINUE TO MONITOR.
--- NOTE | 2020-05-28 02:30 | NUR ---
PATIENT ACCIDENTLY RIPPED NG TUBE OUT WHILE DRY HEAVING. NEW 14 [place] NG TUBE STARTED IN PATIENTS LEFT NOSTRIL. PATIENT TOLERATED WELL. STAT CHEST XRAY ORDERED FOR PLACEMENT. GREEN BILE NOTED.
--- NOTE | 2020-05-28 02:45 | NUR ---
PATIENT ABDOMINAL DRESSING FALLING OFF. PATIENT INCISION CLEANED, ARIE INTACT. 4X4 AND ABD PADS PLACED OVER INCISION AND TAPED DOWN. PATIENT DENIES PAIN AROUND SITE. WILL CONTINUE TO MONITOR.
--- NOTE | 2020-05-28 04:10 | NUR ---
NOTIFIED DR. PHILIP PATIENT ONLY HAD A ONE TIME ORDER FOR FLUIDS. PATIENT IS STILL NPO. OKAY TO ORDER CONTINOUS FLUIDS AT 100. ORDER PLACED
--- NOTE | 2020-05-28 05:25 | NUR ---
PATIENT NAUSEA, DRY HEAVING. MEDICATED WITH ZOFRAN. WILL CONTINUE TO MONITOR.
[2020-05-28 06:44] LABS: BASO % 0.2 % (0.0-1.0); HEMATOCRIT 28.3 % (42.0-52.0); LYMPH # 0.7 10*3/uL (1.3-4.4); LYMPH % 5.9 % (27.0-41.0); MEAN CELL VOLUME 96.6 fl (80.0-94.0); MEAN CORPUSCULAR HGB 29.7 pg (27.0-31.0); MEAN CORPUSCULAR HGB CONC 30.7 g/dl (33.0-37.0); MEAN PLATELET VOLUME 9.5 fl (9.6-12.3); MONO % 8.8 % (3.0-9.0); NEUT # 9.4 10*3/uL (2.3-7.9); NEUT % 84.6 % (47.0-73.0); NUCLEATED RED BLOOD CELL 0.3 % (0.0-0.0); PLATELET COUNT AUTOMATED 334 10*3/uL (130-400); RED BLOOD COUNT 2.93 10*6/uL (4.50-5.90); RED CELL DISTRI WIDTH 13.2 % (0-14.5); WHITE BLOOD COUNT 11.1 10*3/uL (4.8-10.8)
[2020-05-28 07:17] LABS: ALBUMIN 2.7 gm/dl (3.1-4.5); CREATININE 1.56 mg/dL (0.70-1.30); POTASSIUM 4.3 mmol/L (3.5-5.1)
[2020-05-28 08:00] VITALS: BP 134/74
--- NOTE | 2020-05-28 08:08 | NUR ---
CHEST XRAY REMAINS NOT BACK. PLACEMENT CONFIRMED BY AIR BOLUS AND GREEN RETURN OF STOMACH CONTENTS.
--- NOTE | 2020-05-28 10:15 | NUR ---
PATIENT SNEEZED & NG TUBE CAME OUT OF NOSTRIL. NOTIFIED . PER , OK TO LEAVE NG OUT.
--- NOTE | 2020-05-28 11:42 | NUR ---
PT MEDICATED WITH PO PERCOCET AT THIS TIME PER ORDER FOR COMPLAINTS OF PAIN @ INCISION 01/26. WILL MONITOR FOR EFFECTIVENESS.
[2020-05-28 12:00] VITALS: BP 125/75
--- NOTE | 2020-05-28 12:42 | NUR ---
PER PATIENT, PRN MEDICATION HAS BEEN EFFECTIVE. RELAXED AT THIS TIME.
[2020-05-28 16:00] VITALS: BP 109/86
--- NOTE | 2020-05-28 19:30 | NUR ---
ASSUMED CARE OF PATIENT. PATIENT IS AAOX3 SITTING IN CHAIR WITH EASY AND REGULAR RESPERS ON ROOM AIR. ASSESSMENT IS COMPLETE WITH NO C/O OR S/S OF DISTRESS NOTED AT THIS TIME. CALL LIGHT IS WITHIN REACH. WILL CONTINUE TO MONITOR, SEE INTERVENTIONS.
[2020-05-28 20:00] VITALS: BP 151/65
--- NOTE | 2020-05-28 21:53 | NUR ---
PRN RESTORIL GIVEN FOR C/O INSOMNIA. CALL LIGHT IS WITHIN REACH. WILL MONITOR EFFECT.
--- NOTE | 2020-05-28 22:53 | NUR ---
PRN RESTORIL NOT EFFECTIVE. PATIENT IS STILL AWAKE. NO C/O VOICED AT THIS TIME. WILL CONTINUE TO MONITOR, CALL LIGHT IS WITHIN REACH.
[2020-05-29] VITALS: BP 119/49
--- NOTE | 2020-05-29 02:00 | NUR ---
PATIENT SLEEPING WITH EASY AND REGULAR RESPERS ON ROOM AIR. CALL LIGHT IS WITHIN REACH.
--- NOTE | 2020-05-29 03:32 | NUR ---
CHART CHECK COMPLETE.
[2020-05-29 06:55] LABS: MEAN CELL VOLUME 94.9 fl (80.0-94.0); MEAN CORPUSCULAR HGB 29.8 pg (27.0-31.0); MEAN CORPUSCULAR HGB CONC 31.4 g/dl (33.0-37.0); MEAN PLATELET VOLUME 9.5 fl (9.6-12.3); NUCLEATED RED BLOOD CELL 0.1 10*3/uL (0.0-0.0); NUCLEATED RED BLOOD CELL 0.9 % (0.0-0.0); PLATELET COUNT AUTOMATED 323 10*3/uL (130-400); RED BLOOD COUNT 2.95 10*6/uL (4.50-5.90); RED CELL DISTRI WIDTH 13.3 % (0-14.5); WHITE BLOOD COUNT 7.7 10*3/uL (4.8-10.8)
[2020-05-29 07:00] LABS: CREATININE 1.42 mg/dL (0.70-1.30)
[2020-05-29 07:25] LABS: PLATELET SUFFICIENCY NORMAL (NORMAL); POLYCHROMASIA SLIGHT; TOTAL CELLS COUNTED 100 #CELLS
[2020-05-29 07:26] LABS: VACUOLATION OF NEUTROPHILS SLIGHT
[2020-05-29 08:00] VITALS: BP 131/57
--- NOTE | 2020-05-29 10:00 | NUR ---
SPOKE WITH REGARDING PATIENT DRAINING SEROSANGUINEOUS DRAINIAGE FROM INCISION.
[2020-05-29 12:00] VITALS: BP 122/51
--- NOTE | 2020-05-29 15:00 | NUR ---
PT SITTING UP IN CHAIR. DENIES ANY PAIN. DRESSING DRY & INTACT. DENIES ANY NEEDS AT THIS TIME. CALL LIGHT INREACH.
[2020-05-29 16:00] VITALS: BP 124/53
[2020-05-29 20:00] VITALS: BP 108/50
[2020-05-30] VITALS: BP 116/52
--- NOTE | 2020-05-30 02:00 | NUR ---
SLEEPING. RESPERS EASY AND REGULAR. CALL LIGHT IS WITHIN REACH.
--- NOTE | 2020-05-30 04:30 | NUR ---
PATIENT AWAKENS EASILY FOR ADMINISTRATION OF AM MEDICAION. TOLERATED WELL, CALL LIGHT IS WITHIN REACH.
--- NOTE | 2020-05-30 05:23 | NUR ---
PATIENT AMBULATING HALLS AT THIS TIME. COFFEE REQUESTED AND PROVIDED. WILL CONTINUE TO MONITOR.
[2020-05-30 07:00] LABS: HEMATOCRIT 27.4 % (42.0-52.0); MEAN CELL VOLUME 93.8 fl (80.0-94.0); MEAN CORPUSCULAR HGB 28.8 pg (27.0-31.0); MEAN CORPUSCULAR HGB CONC 30.7 g/dl (33.0-37.0); MEAN PLATELET VOLUME 9.2 fl (9.6-12.3); NUCLEATED RED BLOOD CELL 0.1 10*3/uL (0.0-0.0); NUCLEATED RED BLOOD CELL 0.7 % (0.0-0.0); PLATELET COUNT AUTOMATED 347 10*3/uL (130-400); RED BLOOD COUNT 2.92 10*6/uL (4.50-5.90); WHITE BLOOD COUNT 9.8 10*3/uL (4.8-10.8)
[2020-05-30 07:16] LABS: CREATININE 1.51 mg/dL (0.70-1.30); POTASSIUM 4.3 mmol/L (3.5-5.1)
[2020-05-30 07:31] LABS: TOTAL CELLS COUNTED 100 #CELLS
[2020-05-30 07:32] LABS: PLATELET SUFFICIENCY NORMAL (NORMAL); POLYCHROMASIA SLIGHT; TOXIC GRANULATION SLIGHT
[2020-05-30 08:00] VITALS: BP 106/56
--- NOTE | 2020-05-30 08:00 | NUR ---
Patient resting quietly with no c/o discomfort. Respirations easy and regular. drsg dry and intact. Vital signs stable. No overt distress. LACIE DURHAM
--- NOTE | 2020-05-30 08:38 | NUR ---
OT NOTE PATIENT SEEN 1:1 OT THIS DATE FOR 25 MINUTES 8:38 AM TO 9:03 AM. PATIENT SEATED IN RECLINER UPON ARRIVAL. PATIENT IDENTIFIED BY NAME AND DATE OF . PATIENT REPORTS NO PAIN THIS DATE AT BEGINNING OF SESSION AND REPORTS NO PAIN AT END OF SESSION THIS DATE. COMPLETED LB DRESSING CGA WITH EDUCATION BENEFITS USE AE WITH PATIENT ABLE TO CROSS LEGS TO DOFF/LILLY SOCKS AND DON PANTS. EDUCATED PATIENT PROPER FWW PLACEMENT FOR SAFETY DURING STAND COMPONENTS ADL TASKS. COMPLETED SIT TO STAND FROM RECLINER CGA AMBULATING INTO BATHROOM USE FWW SUPPORT COMPLETING GROOMING STANDING AT SINK SBA WITH NO LOSS BALANCE REACHING OVER HEAD COMB HAIR AND STAND TOLERANCE APPROX 5 MINUTES. COMPLETED FUNCTIONAL AMBULATON FROM BATHROOM TO RECLINER CGA USE FWW SUPPORT NO LOSS BALANCE. PATIENT ON 2 L02 THIS DATE THROUGHOUT SESSION. COMPLETED BUE AROM ALL PLANES SEATED 5 EXERCISES X 15 REPS WITH MIN VERBAL CUES TO PACE SELF AND TECHIQUE FOR OVERALL INCREASE INDEPENDENCE WITH FUCNTIONAL TASKS. PATIENT SEATED IN RECLINER END OF SESSION WITH TRAY IN PLACE, CALL LIGHT WITHIN REACH, AND CHAIR ALARM INTACT. CONTINUE TOWARDS PLAN OF CARE. ABI DELGADO/Rowan
--- NOTE | 2020-05-30 09:00 | NUR ---
case management visits with patient, he was sitting up in chair in room with oxygen on, he stated he was feeling better and hoping to be discharged home soon. case management will notify [facility] when patient is discharged. patient will also need assessed for home oxygen prior to discharged. no other needs at this time
--- NOTE | 2020-05-30 11:53 | NUR ---
PT ASSESSED FOR HOME O2. PT DOES NOT QUALIFY FOR HOME O2. PRE AMBULATION ON RA: HR 66 BP 106/56 SPO2 96% POST AMBULATION ON RA: HR 71 BP 110/60 SPO2 96%
[2020-05-30 12:00] VITALS: BP 113/50
--- NOTE | 2020-05-30 13:40 | NUR ---
OT NOTE Pt was seen this P.M. for second OT session consisting of 15 minutes. Upon arrival pt was sitting upright in the recliner. Pt identified by name and and had no complaints at this time. Sit to stand completed from chair level with CGA, pt refused the walker. Functional mobility completed into the bathroom with CGA hand held. There he transferred on/off standard commode with SBA and use of grab bar for UE support. He then stood sink side while washing his hands with CGA for safety. Functional mobility completed back to the recliner with CGA. There he was left with call light in hand, tray table in place, and phone in reach. Continue with POC as able. DANNY Rea/Rowan
--- NOTE | 2020-05-30 13:55 | NUR ---
PHYSICAL THERAPY TREATMENT TIME: IN 1:25 pm - 1:42 PM 17 MINUTES PRESENTATION: Patient was sitting in bedside chair upon this [employer]EL[employer] entering room Patient gives informed consent for treatment Identified by name and on wristband O2 connected to wall outlet with 2 liters and patient NOT wearing spO2 No IVs No catheter Patient says he is going home and not to a shelter for rehab COMPLAINTS: No pain No SOB No other complaints WB STATUS: No wt bearing restrictions ASSISTIVE DEVICE: No Assistive device TRANSFERS: STS <> BEDSIDE CHAIR: SBA STS <> commode: SBA TREATMENT: Gait with Close Supervision 180' x 1 and no assistive device 30 SECONDS STS TEST: 11 Sit to Stands in 30 seconds time with SBA with patient using hands to push off armrests of chair. RESPOMSE TO TREAMTNET: Patient was moderately SOB following the 11 STS test and he put his spO2 BACK ON tiill he caught his breath. Vitals within normal limits DANNY DUGGAN present as witness to this treatment. CONCLUSION: Patient was left in bed side chair with call light within reach Phone near patient spO2 ATTACHED TO PATIENT WITH 2 LITERS LEs in low position Patient is waiting to go home DAJA HAWK SENIOR JAVA J[employer]EE DEVELOPER
--- NOTE | 2020-05-30 15:30 | NUR ---
[facility] TAUGHT TO PATIENT. PT STATES UNDERSTANDING. NO LIFTING NO DRIVING AND NO TUB BATHS.
--- NOTE | 2020-05-30 16:10 | NUR ---
Discharge instructions reviewed with patient/family. Patient receptive and verbalizes understanding. Follow-up care arranged. Written instructions given to patient/family. LACIE DURHAM
--- NOTE | 2020-05-31 07:17 | NUR ---
PHYSICAL THERAPY CO-SIGN I approve of the Physical Therapy notes written above. Lynne Butler PT
--- NOTE | 2020-05-31 07:36 | NUR ---
OCCUPATIONAL THERAPY CO-SIGN I approve of the Occupational Therapy notes written above. DOMINIQUE GARCIA, OTR/L
== END 2020-05-30 16:10 | disposition home health service (06) | DRG 329 ==
LOC: SDC 02:58 → ICCU 14:23 → 4E 05-26 20:11
PROVIDERS: Internal Medicine; Internal Medicine Critical Care Medicine; Student in an Organized Health Care Education/Training Program; ADMIT Internal Medicine; ATTEND Internal Medicine
PROC: 0DNW0ZZ Release Peritoneum, Open Approach (ICD-10-PCS; principal; 2020-05-23)
PROC: 0DTE0ZZ Resection of Large Intestine, Open Approach (ICD-10-PCS; principal; 2020-05-23)
DX: D12.4 Benign neoplasm of descending colon (principal); J18.9 Pneumonia, unspecified organism; J96.01 Acute respiratory failure with hypoxia; R65.10 Systemic inflammatory response syndrome (SIRS) of non-infectious origin without acute organ dysfunction; I50.32 Chronic diastolic (congestive) heart failure; I13.0 Hypertensive heart and chronic kidney disease with heart failure and stage 1 through stage 4 chronic kidney disease, or unspecified chronic kidney disease; J44.1 Chronic obstructive pulmonary disease with (acute) exacerbation; J44.0 Chronic obstructive pulmonary disease with (acute) lower respiratory infection; K56.7 Ileus, unspecified; J45.51 Severe persistent asthma with (acute) exacerbation; K62.1 Rectal polyp; I95.81 Postprocedural hypotension; E78.5 Hyperlipidemia, unspecified; E66.09 Other obesity due to excess calories; J44.9 Chronic obstructive pulmonary disease, unspecified; G47.33 Obstructive sleep apnea (adult) (pediatric); E83.51 Hypocalcemia; E11.22 Type 2 diabetes mellitus with diabetic chronic kidney disease; I48.91 Unspecified atrial fibrillation; E78.00 Pure hypercholesterolemia, unspecified; K21.9 Gastro-esophageal reflux disease without esophagitis; M19.90 Unspecified osteoarthritis, unspecified site; D64.9 Anemia, unspecified; N18.30 Chronic kidney disease, stage 3 unspecified; D12.3 Benign neoplasm of transverse colon; K66.0 Peritoneal adhesions (postprocedural) (postinfection); E11.65 Type 2 diabetes mellitus with hyperglycemia; Z79.4 Long term (current) use of insulin; Z68.34 Body mass index [BMI] 34.0-34.9, adult; Z80.8 Family history of malignant neoplasm of other organs or systems; Z82.5 Family history of asthma and other chronic lower respiratory diseases; Z82.49 Family history of ischemic heart disease and other diseases of the circulatory system; Z91.041 Radiographic dye allergy status; Z79.899 Other long term (current) drug therapy; Z84.1 Family history of disorders of kidney and ureter; Z90.49 Acquired absence of other specified parts of digestive tract

== ENCOUNTER → 2020-07-05 | Outpatient (CLI) | payer MEDICARE ==
[~2020-07-05] MED LIST changes: +BASAG SOL SC; +FLOMAX0.4 MG PO; +OZEMPIC1 MG/0.75 SQ; +VENT7GM INH
[2020-07-05 09:55] LABS: HEMATOCRIT 34.4 % (42.0-52.0)
[2020-07-05 10:14] LABS: ALBUMIN 3.4 gm/dl (3.1-4.5); BILIRUBIN, DIRECT 0.1 mg/dL (0.0-0.2); POTASSIUM 4.1 mmol/L (3.5-5.1)
[2020-07-05 10:19] LABS: CREATININE 1.54 mg/dL (0.70-1.30); TOTAL PROTEIN 7.1 gm/dL (6.4-8.2)
[2020-07-05 10:52] LABS: VITAMIN D, 25-HYDROXY 44.2 ng/mL (30-100)
[2020-07-05 11:51] LABS: BILIRUBIN Negative (Negative); BLOOD Negative (Negative); CLARITY Clear (Clear); COLOR Yellow (Yellow); GLUCOSE Negative (Negative); KETONE Negative (Negative); LEUKO ESTERASE 1+ (Negative); NITRITE Negative (Negative); UROBILINOGEN 0.2 E.U./dl (0.0-1.0)
[2020-07-05 12:56] LABS: BACTERIA 1+
[2020-07-05 12:57] LABS: CALCIUM OXALATE CRYSTALS TRACE
== END | disposition home or self-care (01) ==
LOC: LAB 09:33
PROVIDERS: ATTEND Internal Medicine
DX: E11.65 Type 2 diabetes mellitus with hyperglycemia (principal); E55.9 Vitamin D deficiency, unspecified; E78.5 Hyperlipidemia, unspecified; E11.40 Type 2 diabetes mellitus with diabetic neuropathy, unspecified; N40.0 Benign prostatic hyperplasia without lower urinary tract symptoms; E64.9 Sequelae of unspecified nutritional deficiency

== ENCOUNTER → 2020-09-08 | Outpatient (CLI) | payer OTHER ==
[~2020-09-08] MED LIST changes: +CIPRO500 MG PO; +FLAGYL500 MG PO; +NOVOLOG100 UNIT/1 SQ; +TRESIBA FL200 UNIT/1 SQ
== END | disposition home or self-care (01) ==
LOC: COVID19 15:08
PROVIDERS: ATTEND Nurse Practitioner Family
DX: U07.1 COVID-19 (principal)

== ENCOUNTER → 2020-10-18 | Outpatient (CLI) | payer OTHER ==
[2020-10-18 09:01] LABS: ALBUMIN 3.2 gm/dl (3.1-4.5); ALKALINE PHOSPHATASE 89 U/L (45-117); BUN 19 mg/dl (7-24); CHLORIDE 105 mmol/L (98-107); CREATININE 1.35 mg/dL (0.70-1.30); HDL CHOLESTEROL 55 mg/dl (40-60); POTASSIUM 4.2 mmol/L (3.5-5.1); SGOT/AST 15 IU/L (3-35); SGPT/ALT 34 U/L (12-78); SODIUM 139 mmol/L (136-145); TOTAL PROTEIN 7.3 gm/dL (6.4-8.2)
[2020-10-18 09:08] LABS: BILIRUBIN, DIRECT < 0.1 mg/dL (0.0-0.2); CHOLESTEROL 117 mg/dL (<200); LDL CHOLESTEROL 27 mg/dL (9-159); TRIGLYCERIDES 174 mg/dl (<150); VLDL CHOLESTEROL 35 mg/dL (6-40)
[2020-10-18 13:10] LABS: BILIRUBIN Negative (Negative); BLOOD Negative (Negative); CLARITY Clear (Clear); COLOR Yellow (Yellow); GLUCOSE 2+ (Negative); KETONE Negative (Negative); LEUKO ESTERASE Negative (Negative); NITRITE Negative (Negative); UROBILINOGEN 0.2 E.U./dl (0.0-1.0)
[2020-10-18 13:26] LABS: BACTERIA TRACE
== END | disposition home or self-care (01) ==
LOC: LAB 07:49
PROVIDERS: ATTEND Internal Medicine
DX: E11.65 Type 2 diabetes mellitus with hyperglycemia (principal); E78.5 Hyperlipidemia, unspecified; E11.40 Type 2 diabetes mellitus with diabetic neuropathy, unspecified; E55.9 Vitamin D deficiency, unspecified; N40.0 Benign prostatic hyperplasia without lower urinary tract symptoms

== ENCOUNTER 2020-11-17 14:55 | Inpatient (IN) | payer MEDICARE ==
[~2020-11-17] VITALS: Ht 175.2 cm; Wt 99.3 kg
[~2020-11-17 14:55] MED LIST changes: -CIPRO500 MG PO; -FLAGYL500 MG PO; -NOVOLOG100 UNIT/1 SQ; -TRESIBA FL200 UNIT/1 SQ
[2020-11-17 15:15] VITALS: BP 143/75
[2020-11-17 15:31] LABS: HEMATOCRIT 43.4 % (42.0-52.0); MEAN CELL VOLUME 88.6 fl (80.0-94.0); MEAN CORPUSCULAR HGB 28.4 pg (27.0-31.0); MEAN PLATELET VOLUME 9.2 fl (9.6-12.3); PLATELET COUNT AUTOMATED 411 10*3/uL (130-400); RED CELL DISTRI WIDTH 17.3 % (0-14.5)
[2020-11-17 15:42] LABS: ACT PARTIAL THROMBO TIME 22.9 SECONDS (20.0-32.1); INTERNATIONAL NORM RATIO 1.1 (2.0-3.5)
[2020-11-17 15:48] LABS: BURR CELLS FEW; CREATININE 1.84 mg/dL (0.70-1.30); PLATELET SUFFICIENCY HIGH (NORMAL); POTASSIUM 4.6 mmol/L (3.5-5.1); TOTAL CELLS COUNTED 100 #CELLS; TOTAL PROTEIN 7.2 gm/dL (6.4-8.2)
[2020-11-17 16:57] LABS: BILIRUBIN Negative (Negative); BLOOD Negative (Negative); CLARITY Clear (Clear); COLOR Yellow (Yellow); GLUCOSE 3+ (Negative); KETONE Negative (Negative); LEUKO ESTERASE Negative (Negative); NITRITE Negative (Negative); SPECIFIC GRAVITY >= 1.030 (1.001-1.030); UROBILINOGEN 0.2 E.U./dl (0.0-1.0)
[2020-11-17 17:01] LABS: BACTERIA 1+; RBC 0-2 rbc/hpf (0-2)
[2020-11-17 19:17] VITALS: BP 174/92
[2020-11-17 20:15] VITALS: BP 136/80
[2020-11-18] VITALS: BP 164/91
[2020-11-18 06:20] LABS: HEMATOCRIT 41.5 % (42.0-52.0); MEAN CELL VOLUME 89.6 fl (80.0-94.0); MEAN CORPUSCULAR HGB 28.3 pg (27.0-31.0); MEAN CORPUSCULAR HGB CONC 31.6 g/dl (33.0-37.0); MEAN PLATELET VOLUME 9.1 fl (9.6-12.3); PLATELET COUNT AUTOMATED 361 10*3/uL (130-400); RED BLOOD COUNT 4.63 10*6/uL (4.50-5.90); RED CELL DISTRI WIDTH 17.4 % (0-14.5)
[2020-11-18 06:35] LABS: CREATININE 1.62 mg/dL (0.70-1.30); POTASSIUM 4.5 mmol/L (3.5-5.1)
[2020-11-18 06:46] LABS: THYROID STIM HORMONE (HS) 2.18 uIU/ml (0.358-4.75)
[2020-11-18 06:47] LABS: FREE T4 1.1 ng/dl (0.76-1.46)
[2020-11-18 07:24] LABS: PLATELET SUFFICIENCY NORMAL (NORMAL); TOTAL CELLS COUNTED 100 #CELLS
[2020-11-18] MEDS ORDERED: TRESIBA FL200 UNIT/1 SQ (09:54)
[2020-11-18] MEDS ORDERED: NOVOLOG100 UNIT/1 SQ (09:56)
[2020-11-18 12:00] VITALS: BP 174/88
[2020-11-18 16:00] VITALS: BP 150/78
[2020-11-18 20:00] VITALS: BP 178/84
[2020-11-19] VITALS: BP 123/74
[2020-11-19 06:15] LABS: CREATININE 1.47 mg/dL (0.70-1.30); POTASSIUM 3.9 mmol/L (3.5-5.1)
[2020-11-19 06:29] LABS: BASO % 0.1 % (0.0-1.0); HEMATOCRIT 38.6 % (42.0-52.0); LYMPH # 3.4 10*3/uL (1.3-4.4); LYMPH % 24.4 % (27.0-41.0); MEAN CELL VOLUME 89.1 fl (80.0-94.0); MEAN CORPUSCULAR HGB 28.2 pg (27.0-31.0); MEAN CORPUSCULAR HGB CONC 31.6 g/dl (33.0-37.0); MEAN PLATELET VOLUME 9.3 fl (9.6-12.3); MONO # 1.2 10*3/uL (0.1-1.0); NEUT # 9.1 10*3/uL (2.3-7.9); NEUT % 65.9 % (47.0-73.0); PLATELET COUNT AUTOMATED 351 10*3/uL (130-400); RED BLOOD COUNT 4.33 10*6/uL (4.50-5.90); RED CELL DISTRI WIDTH 17.2 % (0-14.5); WHITE BLOOD COUNT 13.8 10*3/uL (4.8-10.8)
[2020-11-19 08:00] VITALS: BP 108/71
[2020-11-19] MEDS ORDERED: FLAGYL500 MG PO (10:30)
[2020-11-19] MEDS ORDERED: CIPRO500 MG PO (10:30)
== END 2020-11-19 12:05 | disposition home or self-care (01) | DRG 871 ==
LOC: ED 14:55 → EDHOLD 18:07 → 5E 18:07
PROVIDERS: Family Medicine; Student in an Organized Health Care Education/Training Program; ADMIT Student in an Organized Health Care Education/Training Program; ATTEND Student in an Organized Health Care Education/Training Program
DX: A41.9 Sepsis, unspecified organism (principal); N17.0 Acute kidney failure with tubular necrosis; E44.1 Mild protein-calorie malnutrition; I13.0 Hypertensive heart and chronic kidney disease with heart failure and stage 1 through stage 4 chronic kidney disease, or unspecified chronic kidney disease; I50.32 Chronic diastolic (congestive) heart failure; K92.1 Melena; R65.20 Severe sepsis without septic shock; K52.9 Noninfective gastroenteritis and colitis, unspecified; D64.9 Anemia, unspecified; D47.3 Essential (hemorrhagic) thrombocythemia; J44.9 Chronic obstructive pulmonary disease, unspecified; N18.30 Chronic kidney disease, stage 3 unspecified; E11.65 Type 2 diabetes mellitus with hyperglycemia; I48.91 Unspecified atrial fibrillation; G47.33 Obstructive sleep apnea (adult) (pediatric); E55.9 Vitamin D deficiency, unspecified; R21 Rash and other nonspecific skin eruption; E66.9 Obesity, unspecified; E11.22 Type 2 diabetes mellitus with diabetic chronic kidney disease; E78.5 Hyperlipidemia, unspecified; Z79.4 Long term (current) use of insulin; Z90.49 Acquired absence of other specified parts of digestive tract; Z91.041 Radiographic dye allergy status; Z82.5 Family history of asthma and other chronic lower respiratory diseases; Z80.8 Family history of malignant neoplasm of other organs or systems; Z82.49 Family history of ischemic heart disease and other diseases of the circulatory system; Z83.3 Family history of diabetes mellitus; Z81.2 Family history of tobacco abuse and dependence; Z85.038 Personal history of other malignant neoplasm of large intestine; Z79.899 Other long term (current) drug therapy; Z68.32 Body mass index [BMI] 32.0-32.9, adult

== ENCOUNTER → 2020-12-10 | Outpatient (CLI) | payer MEDICARE ==
[~2020-12-10] MED LIST changes: +CIPRO500 MG PO; +FLAGYL500 MG PO; +NOVOLOG100 UNIT/1 SQ; +TRESIBA FL200 UNIT/1 SQ
[2020-12-10 10:00] LABS: BASO % 0.2 % (0.0-1.0); HEMATOCRIT 39.4 % (42.0-52.0); LYMPH # 2.6 10*3/uL (1.3-4.4); LYMPH % 22.5 % (27.0-41.0); MEAN CELL VOLUME 90.4 fl (80.0-94.0); MEAN CORPUSCULAR HGB 29.4 pg (27.0-31.0); MEAN CORPUSCULAR HGB CONC 32.5 g/dl (33.0-37.0); MEAN PLATELET VOLUME 8.9 fl (9.6-12.3); MONO # 1.3 10*3/uL (0.1-1.0); MONO % 10.8 % (3.0-9.0); NEUT # 7.6 10*3/uL (2.3-7.9); NEUT % 65.5 % (47.0-73.0); PLATELET COUNT AUTOMATED 315 10*3/uL (130-400); RED BLOOD COUNT 4.36 10*6/uL (4.50-5.90); RED CELL DISTRI WIDTH 15.5 % (0-14.5); WHITE BLOOD COUNT 11.5 10*3/uL (4.8-10.8)
[2020-12-10 10:16] LABS: ALBUMIN 3.1 gm/dl (3.1-4.5); CREATININE 1.43 mg/dL (0.70-1.30); POTASSIUM 4.4 mmol/L (3.5-5.1); TOTAL PROTEIN 7.3 gm/dL (6.4-8.2)
== END | disposition home or self-care (01) ==
LOC: LAB 09:39
PROVIDERS: ATTEND Physician Assistant Surgical
DX: I77.6 Arteritis, unspecified (principal)

== ENCOUNTER → 2021-02-27 | Outpatient (CLI) | payer MEDICARE | END | disposition home or self-care (01) | LOC: RAD 11:40 | PROVIDERS: ATTEND Nurse Practitioner Family | DX: J44.1 Chronic obstructive pulmonary disease with (acute) exacerbation (principal); R05 Cough; R06.2 Wheezing ==

== ENCOUNTER → 2021-04-01 | Outpatient (CLI) | payer MEDICARE ==
[2021-04-01 08:31] LABS: ALBUMIN 3.4 gm/dl (3.1-4.5); ALKALINE PHOSPHATASE 57 U/L (45-117); BUN 18 mg/dl (7-24); CHLORIDE 107 mmol/L (98-107); CHOLESTEROL 142 mg/dL (<200); CREATININE 1.67 mg/dL (0.70-1.30); LDL CHOLESTEROL 37 mg/dL (9-159); POTASSIUM 4.1 mmol/L (3.5-5.1); SGOT/AST 15 IU/L (3-35); SGPT/ALT 31 U/L (12-78); SODIUM 140 mmol/L (136-145); TRIGLYCERIDES 308 mg/dl (<150)
[2021-04-01 10:19] LABS: BILIRUBIN Negative (Negative); BLOOD Negative (Negative); CLARITY Clear (Clear); COLOR Yellow (Yellow); GLUCOSE 3+ (Negative); KETONE Negative (Negative); LEUKO ESTERASE Negative (Negative); NITRITE Negative (Negative); SPECIFIC GRAVITY 1.025 (1.001-1.030); UROBILINOGEN 0.2 E.U./dl (0.0-1.0)
[2021-04-01 10:31] LABS: BACTERIA 1+
[2021-04-01 10:32] LABS: RBC 0-2 rbc/hpf (0-2)
[2021-04-01 10:50] LABS: VITAMIN D, 25-HYDROXY 35.9 ng/mL (30-100)
== END | disposition home or self-care (01) ==
LOC: LAB 07:25
PROVIDERS: ATTEND Internal Medicine
DX: E11.65 Type 2 diabetes mellitus with hyperglycemia (principal); E78.5 Hyperlipidemia, unspecified; E55.9 Vitamin D deficiency, unspecified; E11.40 Type 2 diabetes mellitus with diabetic neuropathy, unspecified

== ENCOUNTER → 2021-07-25 | Outpatient (CLI) | payer MEDICARE | END | disposition home or self-care (01) | LOC: RAD 16:37 | PROVIDERS: ATTEND Nurse Practitioner Family | DX: R05.8 Other specified cough (principal); I10 Essential (primary) hypertension; E11.622 Type 2 diabetes mellitus with other skin ulcer; E78.5 Hyperlipidemia, unspecified ==

== ENCOUNTER → 2021-10-11 | Outpatient (CLI) | payer MEDICARE ==
[2021-10-11 11:18] LABS: CREATININE 1.58 mg/dL (0.70-1.30); POTASSIUM 4.2 mmol/L (3.5-5.1); TOTAL PROTEIN 7.5 gm/dL (6.4-8.2)
[2021-10-11 12:18] LABS: VITAMIN D, 25-HYDROXY 31.1 ng/mL (30-100)
[2021-10-11 13:40] LABS: BILIRUBIN Negative (Negative); BLOOD Negative (Negative); CLARITY Cloudy (Clear); COLOR Yellow (Yellow); GLUCOSE 1+ (Negative); KETONE Negative (Negative); LEUKO ESTERASE 1+ (Negative); NITRITE Negative (Negative); SPECIFIC GRAVITY 1.025 (1.001-1.030); UROBILINOGEN 0.2 E.U./dl (0.0-1.0)
[2021-10-11 13:48] LABS: CALCIUM OXALATE CRYSTALS 1+
== END ==
LOC: LAB 10:19
PROVIDERS: ATTEND Internal Medicine
DX: E11.65 Type 2 diabetes mellitus with hyperglycemia (principal); E29.1 Testicular hypofunction; E55.9 Vitamin D deficiency, unspecified; N40.0 Benign prostatic hyperplasia without lower urinary tract symptoms; E78.5 Hyperlipidemia, unspecified

== ENCOUNTER 2021-11-08 16:50 | Emergency (ER) | payer MEDICARE ==
[~2021-11-08] VITALS: Ht 175.2 cm; Wt 100.7 kg
[2021-11-08 19:09] LABS: BASO % 0.1 % (0.0-1.0); HEMATOCRIT 43.9 % (42.0-52.0); MEAN CELL VOLUME 92.8 fl (80.0-94.0); MEAN CORPUSCULAR HGB 30.7 pg (27.0-31.0); MEAN PLATELET VOLUME 9.8 fl (9.6-12.3); MONO # 1.1 10*3/uL (0.1-1.0); MONO % 12.9 % (3.0-9.0); NEUT # 5.3 10*3/uL (2.3-7.9); NEUT % 62.3 % (47.0-73.0); PLATELET COUNT AUTOMATED 300 10*3/uL (130-400); RED BLOOD COUNT 4.73 10*6/uL (4.50-5.90); RED CELL DISTRI WIDTH 13.1 % (0-14.5); WHITE BLOOD COUNT 8.5 10*3/uL (4.8-10.8)
[2021-11-08 19:26] LABS: CREATININE 1.77 mg/dL (0.70-1.30)
[2021-11-08] MEDS ORDERED: LANTUS SOL100 UNIT/1 SC (21:01)
[2021-11-08] MEDS ORDERED: FASENRA30 MG/1 ML SQ (21:03)
[2021-11-08] MEDS ORDERED: FARXIGA5 M1 PO (21:04)
[2021-11-08] MEDS ORDERED: OZEMPIC1 MG/0.71 SQ (21:06)
[2021-11-08] MEDS ORDERED: OMEPRAZOLE MAGN20 MG PO (21:06)
[2021-11-08 21:22] VITALS: BP 146/86
[2021-11-08] MEDS ORDERED: PREDNISONE20 M1 PO (21:39)
[2021-11-08] MEDS ORDERED: PROVENTIL HFA6.7 GM INH (21:39)
== END 2021-11-08 21:44 | disposition home or self-care (01) ==
LOC: ED 16:50
PROVIDERS: Physician Assistant
DX: J44.1 Chronic obstructive pulmonary disease with (acute) exacerbation (principal); R19.7 Diarrhea, unspecified; Z79.899 Other long term (current) drug therapy; Z98.890 Other specified postprocedural states; Z90.49 Acquired absence of other specified parts of digestive tract

== ENCOUNTER → 2022-02-22 | Outpatient (CLI) | payer MEDICARE ==
[~2022-02-22] MED LIST changes: +FARXIGA5 M1 PO; +FASENRA30 MG/1 ML SQ; +LANTUS SOL100 UNIT/1 SC; +OMEPRAZOLE MAGN20 MG PO; +OZEMPIC1 MG/0.71 SQ; +PREDNISONE20 M1 PO; +PROVENTIL HFA6.7 GM INH
== END | disposition home or self-care (01) ==
LOC: RAD 15:03
PROVIDERS: ATTEND Nurse Practitioner Family
DX: E11.622 Type 2 diabetes mellitus with other skin ulcer (principal); J44.1 Chronic obstructive pulmonary disease with (acute) exacerbation; R05.9 Cough, unspecified

== ENCOUNTER → 2022-02-23 | Outpatient (CLI) | payer MEDICARE ==
[2022-02-23 09:34] LABS: CREATININE 1.91 mg/dL (0.70-1.30); TOTAL PROTEIN 8.3 gm/dL (6.4-8.2)
[2022-02-23 10:10] LABS: VITAMIN D, 25-HYDROXY 49.2 ng/mL (30-100)
[2022-02-24 11:10] LABS: BILIRUBIN Negative (Negative); BLOOD Negative (Negative); CLARITY Clear (Clear); COLOR Yellow (Yellow); GLUCOSE 3+ (Negative); KETONE Trace (Negative); LEUKO ESTERASE Negative (Negative); NITRITE Negative (Negative); SPECIFIC GRAVITY >= 1.030 (1.001-1.030); UROBILINOGEN 0.2 E.U./dl (0.0-1.0)
[2022-02-24 11:28] LABS: YEAST 1+
[2022-02-24 11:29] LABS: BACTERIA 2+
== END | disposition home or self-care (01) ==
LOC: LAB 08:20
PROVIDERS: ATTEND Internal Medicine
DX: E55.9 Vitamin D deficiency, unspecified (principal); E29.1 Testicular hypofunction; E11.65 Type 2 diabetes mellitus with hyperglycemia; E11.40 Type 2 diabetes mellitus with diabetic neuropathy, unspecified; N40.0 Benign prostatic hyperplasia without lower urinary tract symptoms; E78.5 Hyperlipidemia, unspecified

== ENCOUNTER → 2022-04-16 | Outpatient (CLI) | payer MEDICARE | END | disposition home or self-care (01) | LOC: RAD 14:41 | PROVIDERS: ATTEND Nurse Practitioner Family | DX: U07.1 COVID-19 (principal); R05.9 Cough, unspecified; R06.2 Wheezing ==

== ENCOUNTER 2022-07-31 09:55 | Inpatient (IN) | payer MEDICARE ==
[~2022-07-31] VITALS: Ht 175.2 cm; Wt 89.8 kg
[2022-07-31 10:12] VITALS: BP 122/79
[2022-07-31] MEDS ORDERED: FOLBEE TABLET1 EACH PO (10:51)
[2022-07-31] MEDS ORDERED: TAMSULOSIN HCL0.4 MG PO (10:51)
[2022-07-31] MEDS ORDERED: GLUMETZA500 MG PO (10:52)
[2022-07-31] MEDS ORDERED: TRULICITY4.5 MG/0.5 SQ (10:53)
[2022-07-31] MEDS ORDERED: HUMALOG MI100 UNIT/1 SQ (10:55)
[2022-07-31 11:20] LABS: BASO % 0.1 % (0.0-1.0); HEMATOCRIT 42.1 % (42.0-52.0); LYMPH # 2.2 10*3/uL (1.3-4.4); LYMPH % 13.6 % (27.0-41.0); MEAN CELL VOLUME 90.5 fl (80.0-94.0); MEAN CORPUSCULAR HGB 30.5 pg (27.0-31.0); MEAN CORPUSCULAR HGB CONC 33.7 g/dl (33.0-37.0); MONO # 1.3 10*3/uL (0.1-1.0); NEUT # 12.3 10*3/uL (2.3-7.9); NEUT % 77.8 % (47.0-73.0); PLATELET COUNT AUTOMATED 308 10*3/uL (130-400); RED BLOOD COUNT 4.65 10*6/uL (4.50-5.90); RED CELL DISTRI WIDTH 13.2 % (0-14.5); WHITE BLOOD COUNT 15.8 10*3/uL (4.8-10.8)
[2022-07-31 11:34] LABS: CREATININE 1.73 mg/dL (0.70-1.30); POTASSIUM 4.4 mmol/L (3.4-5.1); TOTAL PROTEIN 7.1 gm/dL (6.0-8.0)
[2022-07-31 11:41] LABS: ACT PARTIAL THROMBO TIME 28.6 SECONDS (20.0-32.1); INTERNATIONAL NORM RATIO 1.1 (2.0-3.5)
[2022-07-31 12:15] VITALS: BP 120/78
[2022-07-31 14:30] VITALS: BP 122/72
[2022-07-31 16:45] VITALS: BP 120/70
[2022-07-31 18:17] VITALS: BP 126/74
[2022-07-31 19:43] VITALS: BP 126/72
[2022-08-01 02:41] VITALS: BP 124/76
[2022-08-01 06:18] LABS: BASO % 0.1 % (0.0-1.0); HEMATOCRIT 39.3 % (42.0-52.0); LYMPH # 2.6 10*3/uL (1.3-4.4); LYMPH % 19.1 % (27.0-41.0); MEAN CELL VOLUME 91.2 fl (80.0-94.0); MEAN CORPUSCULAR HGB 31.1 pg (27.0-31.0); MEAN CORPUSCULAR HGB CONC 34.1 g/dl (33.0-37.0); MEAN PLATELET VOLUME 10.2 fl (9.6-12.3); MONO # 1.3 10*3/uL (0.1-1.0); MONO % 9.8 % (3.0-9.0); NEUT # 9.4 10*3/uL (2.3-7.9); NEUT % 70.4 % (47.0-73.0); PLATELET COUNT AUTOMATED 305 10*3/uL (130-400); RED BLOOD COUNT 4.31 10*6/uL (4.50-5.90); RED CELL DISTRI WIDTH 13.1 % (0-14.5); WHITE BLOOD COUNT 13.4 10*3/uL (4.8-10.8)
[2022-08-01 06:25] LABS: THYROID STIM HORMONE (HS) 3.831 uIU/ml (0.550-4.780)
[2022-08-01 07:49] LABS: CREATININE 1.48 mg/dL (0.70-1.30); POTASSIUM 4.5 mmol/L (3.4-5.1); TOTAL PROTEIN 6.8 gm/dL (6.0-8.0)
[2022-08-01 08:00] VITALS: BP 145/53
[2022-08-01 08:02] LABS: VITAMIN D, 25-HYDROXY 43.3 ng/mL (30-100)
[2022-08-01 10:45] VITALS: BP 144/74
[2022-08-01 16:00] VITALS: BP 127/60
[2022-08-01 20:00] VITALS: BP 118/68
[2022-08-02] VITALS: BP 112/82
[2022-08-02 06:48] LABS: MEAN CORPUSCULAR HGB 30.6 pg (27.0-31.0); MEAN CORPUSCULAR HGB CONC 33.9 g/dl (33.0-37.0); PLATELET COUNT AUTOMATED 275 10*3/uL (130-400); RED BLOOD COUNT 4.22 10*6/uL (4.50-5.90); RED CELL DISTRI WIDTH 12.9 % (0-14.5); WHITE BLOOD COUNT 11.7 10*3/uL (4.8-10.8)
[2022-08-02 06:53] LABS: MANUAL DIFF REFLEX YES
[2022-08-02 07:57] LABS: BURR CELLS FEW; OVALOCYTES FEW; PLATELET SUFFICIENCY NORMAL (NORMAL); POLYCHROMASIA SLIGHT; TOTAL CELLS COUNTED 100 #CELLS
[2022-08-02 08:00] VITALS: BP 126/61
[2022-08-02 08:48] LABS: CREATININE 1.46 mg/dL (0.70-1.30); POTASSIUM 4.2 mmol/L (3.4-5.1); TOTAL PROTEIN 6.8 gm/dL (6.0-8.0)
[2022-08-02 12:00] VITALS: BP 153/74
[2022-08-02 16:00] VITALS: BP 143/87
[2022-08-02 20:00] VITALS: BP 158/83
[2022-08-03] VITALS: BP 148/71
[2022-08-03 07:00] LABS: MEAN CORPUSCULAR HGB CONC 33.7 g/dl (33.0-37.0); RED CELL DISTRI WIDTH 13.1 % (0-14.5)
[2022-08-03 07:11] LABS: CREATININE 1.42 mg/dL (0.70-1.30); POTASSIUM 4.3 mmol/L (3.4-5.1)
[2022-08-03 08:00] VITALS: BP 152/90
[2022-08-03 08:05] LABS: HEMATOCRIT 41.6 % (42.0-52.0); MEAN CELL VOLUME 91.2 fl (80.0-94.0); MEAN CORPUSCULAR HGB 30.7 pg (27.0-31.0); RED BLOOD COUNT 4.56 10*6/uL (4.50-5.90); WHITE BLOOD COUNT 22.5 10*3/uL (4.8-10.8)
[2022-08-03 08:22] LABS: MANUAL DIFF REFLEX YES; PLATELET COUNT AUTOMATED 372 10*3/uL (130-400)
[2022-08-03 08:24] LABS: PLATELET SUFFICIENCY NORMAL (NORMAL); TOTAL CELLS COUNTED 100 #CELLS
[2022-08-03 12:00] VITALS: BP 151/90
[2022-08-03 16:00] VITALS: BP 141/79
[2022-08-03 18:00] VITALS: BP 141/79
[2022-08-03 20:00] VITALS: BP 140/85
[2022-08-04] VITALS: BP 118/72
[2022-08-04 05:55] LABS: BUN 24 mg/dl (9-23); CHLORIDE 103 mmol/L (98-107); CREATININE 1.27 mg/dL (0.70-1.30); POTASSIUM 4.3 mmol/L (3.4-5.1); SODIUM 139 mmol/L (136-145)
[2022-08-04 06:33] LABS: BASO % 0.2 % (0.0-1.0); HEMATOCRIT 41.9 % (42.0-52.0); LYMPH # 3.4 10*3/uL (1.3-4.4); MEAN CELL VOLUME 92.3 fl (80.0-94.0); MEAN CORPUSCULAR HGB 30.4 pg (27.0-31.0); MEAN CORPUSCULAR HGB CONC 32.9 g/dl (33.0-37.0); MEAN PLATELET VOLUME 9.8 fl (9.6-12.3); MONO # 1.4 10*3/uL (0.1-1.0); NEUT # 12.9 10*3/uL (2.3-7.9); NEUT % 72.2 % (47.0-73.0); PLATELET COUNT AUTOMATED 367 10*3/uL (130-400); RED BLOOD COUNT 4.54 10*6/uL (4.50-5.90); RED CELL DISTRI WIDTH 13.2 % (0-14.5); WHITE BLOOD COUNT 17.8 10*3/uL (4.8-10.8)
[2022-08-04 08:00] VITALS: BP 100/54
[2022-08-04 12:00] VITALS: BP 97/52
[2022-08-04 16:00] VITALS: BP 118/51
[2022-08-04 20:00] VITALS: BP 121/47
[2022-08-05] VITALS: BP 131/62
[2022-08-05 07:07] LABS: BASO % 0.1 % (0.0-1.0); HEMATOCRIT 39.5 % (42.0-52.0); LYMPH # 2.7 10*3/uL (1.3-4.4); LYMPH % 25.6 % (27.0-41.0); MEAN CELL VOLUME 90.6 fl (80.0-94.0); MEAN CORPUSCULAR HGB CONC 33.2 g/dl (33.0-37.0); MEAN PLATELET VOLUME 9.7 fl (9.6-12.3); MONO % 9.4 % (3.0-9.0); NEUT # 6.7 10*3/uL (2.3-7.9); NEUT % 63.9 % (47.0-73.0); PLATELET COUNT AUTOMATED 320 10*3/uL (130-400); RED BLOOD COUNT 4.36 10*6/uL (4.50-5.90); RED CELL DISTRI WIDTH 13.2 % (0-14.5); WHITE BLOOD COUNT 10.5 10*3/uL (4.8-10.8)
[2022-08-05 07:30] LABS: BUN 19 mg/dl (9-23); CHLORIDE 103 mmol/L (98-107); SODIUM 138 mmol/L (136-145)
[2022-08-05 08:00] VITALS: BP 166/88
[2022-08-05 12:00] VITALS: BP 148/76
[2022-08-05 16:00] VITALS: BP 139/78
[2022-08-05 20:00] VITALS: BP 106/83
[2022-08-06] VITALS: BP 118/54
[2022-08-06 08:00] VITALS: BP 115/81
[2022-08-06 12:00] VITALS: BP 123/66
[2022-08-06 16:00] VITALS: BP 118/72
[2022-08-06 20:00] VITALS: BP 129/61
[2022-08-07] VITALS: BP 128/68
[2022-08-07 06:48] LABS: BASO % 0.3 % (0.0-1.0); HEMATOCRIT 44.4 % (42.0-52.0); LYMPH # 3.4 10*3/uL (1.3-4.4); LYMPH % 28.8 % (27.0-41.0); MEAN CELL VOLUME 92.1 fl (80.0-94.0); MEAN CORPUSCULAR HGB 30.9 pg (27.0-31.0); MEAN CORPUSCULAR HGB CONC 33.6 g/dl (33.0-37.0); MEAN PLATELET VOLUME 9.7 fl (9.6-12.3); MONO # 0.8 10*3/uL (0.1-1.0); MONO % 6.9 % (3.0-9.0); NEUT # 7.3 10*3/uL (2.3-7.9); NEUT % 62.5 % (47.0-73.0); PLATELET COUNT AUTOMATED 370 10*3/uL (130-400); RED BLOOD COUNT 4.82 10*6/uL (4.50-5.90); RED CELL DISTRI WIDTH 12.9 % (0-14.5); WHITE BLOOD COUNT 11.7 10*3/uL (4.8-10.8)
[2022-08-07 06:53] LABS: ALKALINE PHOSPHATASE 75 U/L (46-116); BUN 17 mg/dl (9-23); CHLORIDE 100 mmol/L (98-107); CREATININE 1.38 mg/dL (0.70-1.30); POTASSIUM 4.5 mmol/L (3.4-5.1); SGPT/ALT 55 U/L (10-49); SODIUM 136 mmol/L (136-145); TOTAL PROTEIN 6.9 gm/dL (6.0-8.0)
[2022-08-07 08:00] VITALS: BP 116/85
[2022-08-07] MEDS ORDERED: CLINDAMYCIN HC300 MG PO (08:50)
[2022-08-07] MEDS ORDERED: FLORASTOR250 MG PO (08:50)
[2022-08-07] MEDS ORDERED: AMLODIPINE BESY10 MG PO (08:50)
[2022-08-07] MEDS ORDERED: MAGNESIUM OXID400 MG PO (08:50)
== END 2022-08-07 11:55 | disposition home or self-care (01) | DRG 602 ==
LOC: ED 09:55 → 4E 13:08 → EDHOLD 13:08 → 4E 08-01 08:12
PROVIDERS: Emergency Medicine; Internal Medicine; Student in an Organized Health Care Education/Training Program; ADMIT Internal Medicine; ATTEND Internal Medicine
DX: L03.213 Periorbital cellulitis (principal); N17.0 Acute kidney failure with tubular necrosis; E87.20 Acidosis, unspecified; I50.32 Chronic diastolic (congestive) heart failure; I13.0 Hypertensive heart and chronic kidney disease with heart failure and stage 1 through stage 4 chronic kidney disease, or unspecified chronic kidney disease; N18.32 Chronic kidney disease, stage 3b; E83.42 Hypomagnesemia; I48.91 Unspecified atrial fibrillation; E78.5 Hyperlipidemia, unspecified; E66.9 Obesity, unspecified; J45.909 Unspecified asthma, uncomplicated; G47.33 Obstructive sleep apnea (adult) (pediatric); D72.828 Other elevated white blood cell count; E11.65 Type 2 diabetes mellitus with hyperglycemia; H04.003 Unspecified dacryoadenitis, bilateral lacrimal glands; J44.9 Chronic obstructive pulmonary disease, unspecified; E11.22 Type 2 diabetes mellitus with diabetic chronic kidney disease; J32.8 Other chronic sinusitis; Z68.29 Body mass index [BMI] 29.0-29.9, adult; Z91.041 Radiographic dye allergy status; Z90.49 Acquired absence of other specified parts of digestive tract; Z82.49 Family history of ischemic heart disease and other diseases of the circulatory system; Z83.6 Family history of other diseases of the respiratory system; Z79.4 Long term (current) use of insulin; Z85.038 Personal history of other malignant neoplasm of large intestine

== ENCOUNTER → 2022-09-04 | Outpatient (CLI) | payer MEDICARE ==
[~2022-09-04] MED LIST changes: +AMLODIPINE BESY10 MG PO; +CLINDAMYCIN HC300 MG PO; +FLORASTOR250 MG PO; +GLUMETZA500 MG PO; +HUMALOG MI100 UNIT/1 SQ; +MAGNESIUM OXID400 MG PO; +TRULICITY4.5 MG/0.5 SQ
[2022-09-04 08:57] LABS: POTASSIUM 4.4 mmol/L (3.4-5.1); TOTAL PROTEIN 6.8 gm/dL (6.0-8.0)
[2022-09-04 10:23] LABS: VITAMIN D, 25-HYDROXY 36.9 ng/mL (30-100)
[2022-09-04 13:14] LABS: BILIRUBIN Negative (Negative); BLOOD Negative (Negative); CLARITY Clear (Clear); COLOR Yellow (Yellow); GLUCOSE 3+ (Negative); KETONE Negative (Negative); LEUKO ESTERASE Negative (Negative); NITRITE Negative (Negative); UROBILINOGEN 0.2 E.U./dl (0.0-1.0)
[2022-09-04 14:09] LABS: BACTERIA 1+; RBC 0-2 rbc/hpf (0-2); WBC 0-2 wbc/hpf (0-5); YEAST 2+
== END | disposition home or self-care (01) ==
LOC: LAB 08:08
PROVIDERS: ATTEND Internal Medicine
DX: E11.65 Type 2 diabetes mellitus with hyperglycemia (principal); E29.1 Testicular hypofunction; E55.9 Vitamin D deficiency, unspecified; N40.0 Benign prostatic hyperplasia without lower urinary tract symptoms

== ENCOUNTER → 2022-10-22 | Outpatient (CLI) | payer MEDICARE | END | disposition home or self-care (01) | LOC: RAD 12:30 | PROVIDERS: ATTEND Nurse Practitioner Family | DX: M25.851 Other specified joint disorders, right hip (principal); M76.891 Other specified enthesopathies of right lower limb, excluding foot ==

== ENCOUNTER → 2022-10-29 | Outpatient (CLI) | payer MEDICARE | END | disposition home or self-care (01) | LOC: US 12:02 | PROVIDERS: ATTEND Nurse Practitioner Family | DX: M79.661 Pain in right lower leg (principal) ==

== ENCOUNTER → 2022-12-15 | Outpatient (CLI) | payer OTHER, MEDICAID ==
[2022-12-15 11:17] LABS: TOTAL PROTEIN 7.1 gm/dL (6.0-8.0)
[2022-12-15 11:59] LABS: VITAMIN D, 25-HYDROXY 34.9 ng/mL (30-100)
== END | disposition home or self-care (01) ==
LOC: LAB 09:51
PROVIDERS: ATTEND Internal Medicine
DX: E11.65 Type 2 diabetes mellitus with hyperglycemia (principal); E55.9 Vitamin D deficiency, unspecified; E11.40 Type 2 diabetes mellitus with diabetic neuropathy, unspecified; E78.5 Hyperlipidemia, unspecified

== ENCOUNTER → 2023-01-31 | Day surgery (SDC) | payer OTHER, MEDICAID ==
[~2023-01-31] VITALS: Ht 175.2 cm; Wt 99.8 kg
[2023-01-31 07:00] VITALS: BP 151/76
[2023-01-31 07:44] VITALS: BP 128/68
[2023-01-31 07:59] VITALS: BP 120/54
[2023-01-31 08:14] VITALS: BP 134/58
[2023-01-31 08:15] VITALS: BP 134/58
== END | disposition home or self-care (01) ==
LOC: SDC 01-28 08:00
PROVIDERS: ATTEND Surgery
DX: Z12.11 Encounter for screening for malignant neoplasm of colon (principal); E78.00 Pure hypercholesterolemia, unspecified; J44.9 Chronic obstructive pulmonary disease, unspecified; K21.9 Gastro-esophageal reflux disease without esophagitis; Z90.49 Acquired absence of other specified parts of digestive tract; I12.9 Hypertensive chronic kidney disease with stage 1 through stage 4 chronic kidney disease, or unspecified chronic kidney disease; E11.22 Type 2 diabetes mellitus with diabetic chronic kidney disease; N18.30 Chronic kidney disease, stage 3 unspecified; Z79.899 Other long term (current) drug therapy

== ENCOUNTER → 2023-03-19 | Outpatient (CLI) | payer OTHER, MEDICAID ==
[2023-03-19 09:55] LABS: BASO % 0.1 % (0.0-1.0); HEMATOCRIT 40.1 % (42.0-52.0); LYMPH # 2.3 10*3/uL (1.3-4.4); LYMPH % 24.6 % (27.0-41.0); MEAN CELL VOLUME 92.8 fl (80.0-94.0); MEAN CORPUSCULAR HGB CONC 33.4 g/dl (33.0-37.0); MEAN PLATELET VOLUME 9.8 fl (9.6-12.3); MONO # 0.9 10*3/uL (0.1-1.0); MONO % 9.3 % (3.0-9.0); NEUT # 6.2 10*3/uL (2.3-7.9); NEUT % 65.3 % (47.0-73.0); PLATELET COUNT AUTOMATED 273 10*3/uL (130-400); RED BLOOD COUNT 4.32 10*6/uL (4.50-5.90); RED CELL DISTRI WIDTH 11.9 % (0-14.5); WHITE BLOOD COUNT 9.5 10*3/uL (4.8-10.8)
== END | disposition home or self-care (01) ==
LOC: LAB 09:08
PROVIDERS: ATTEND Nurse Practitioner Family
DX: I10 Essential (primary) hypertension (principal); J44.1 Chronic obstructive pulmonary disease with (acute) exacerbation; E11.622 Type 2 diabetes mellitus with other skin ulcer; R79.89 Other specified abnormal findings of blood chemistry; Z90.49 Acquired absence of other specified parts of digestive tract

== ENCOUNTER → 2023-03-27 | Outpatient (CLI) | payer OTHER, MEDICAID | END | disposition home or self-care (01) | LOC: US 08:41 | PROVIDERS: ATTEND Internal Medicine Nephrology | DX: I12.9 Hypertensive chronic kidney disease with stage 1 through stage 4 chronic kidney disease, or unspecified chronic kidney disease (principal); N28.89 Other specified disorders of kidney and ureter; N18.31 Chronic kidney disease, stage 3a; N28.1 Cyst of kidney, acquired ==

== ENCOUNTER → 2023-05-24 | Outpatient (CLI) | payer OTHER, MEDICAID ==
[2023-05-24 09:41] LABS: BILIRUBIN Negative (Negative); BLOOD Negative (Negative); CLARITY Clear (Clear); COLOR Yellow (Yellow); GLUCOSE 3+ (Negative); KETONE Negative (Negative); LEUKO ESTERASE Trace (Negative); NITRITE Negative (Negative); SPECIFIC GRAVITY 1.025 (1.001-1.030)
[2023-05-24 09:46] LABS: POTASSIUM 4.4 mmol/L (3.4-5.1); TOTAL PROTEIN 6.9 gm/dL (6.0-8.0)
[2023-05-24 10:39] LABS: VITAMIN D, 25-HYDROXY 49.6 ng/mL (30-100)
[2023-05-24 11:07] LABS: BACTERIA 1+
== END | disposition home or self-care (01) ==
LOC: LAB 08:30
PROVIDERS: ATTEND Internal Medicine
DX: E29.1 Testicular hypofunction (principal); E11.65 Type 2 diabetes mellitus with hyperglycemia; E11.40 Type 2 diabetes mellitus with diabetic neuropathy, unspecified; E78.5 Hyperlipidemia, unspecified; N40.0 Benign prostatic hyperplasia without lower urinary tract symptoms; E55.9 Vitamin D deficiency, unspecified

== ENCOUNTER → 2023-06-26 | Outpatient (CLI) | payer OTHER, MEDICAID ==
[2023-06-26 10:02] LABS: HEMATOCRIT 42.5 % (42.0-52.0); MEAN CELL VOLUME 92.8 fl (80.0-94.0); MEAN CORPUSCULAR HGB 29.9 pg (27.0-31.0); MEAN CORPUSCULAR HGB CONC 32.2 g/dl (33.0-37.0); MEAN PLATELET VOLUME 9.6 fl (9.6-12.3); PLATELET COUNT AUTOMATED 329 10*3/uL (130-400); RED BLOOD COUNT 4.58 10*6/uL (4.50-5.90); RED CELL DISTRI WIDTH 12.8 % (0-14.5); WHITE BLOOD COUNT 13.9 10*3/uL (4.8-10.8)
[2023-06-26 10:39] LABS: MANUAL DIFF REFLEX YES
[2023-06-26 10:45] LABS: POTASSIUM 4.7 mmol/L (3.4-5.1); TOTAL PROTEIN 6.8 gm/dL (6.0-8.0)
[2023-06-26 11:09] LABS: PLATELET SUFFICIENCY NORMAL (NORMAL); POLYCHROMASIA SLIGHT; TOTAL CELLS COUNTED 100 #CELLS
== END | disposition home or self-care (01) ==
LOC: LAB 09:36
PROVIDERS: ATTEND Nurse Practitioner Family
DX: I10 Essential (primary) hypertension (principal); R79.89 Other specified abnormal findings of blood chemistry; J44.1 Chronic obstructive pulmonary disease with (acute) exacerbation; E11.65 Type 2 diabetes mellitus with hyperglycemia; Z79.4 Long term (current) use of insulin

== ENCOUNTER → 2023-07-02 | Outpatient (CLI) | payer OTHER, MEDICAID ==
[2023-07-02 12:51] LABS: BASO % 0.2 % (0.0-1.0); HEMATOCRIT 41.7 % (42.0-52.0); LYMPH # 2.9 10*3/uL (1.3-4.4); LYMPH % 14.6 % (27.0-41.0); MEAN CELL VOLUME 92.3 fl (80.0-94.0); MEAN CORPUSCULAR HGB 30.3 pg (27.0-31.0); MEAN CORPUSCULAR HGB CONC 32.9 g/dl (33.0-37.0); MONO # 1.4 10*3/uL (0.1-1.0); MONO % 6.9 % (3.0-9.0); NEUT # 15.3 10*3/uL (2.3-7.9); NEUT % 77.4 % (47.0-73.0); PLATELET COUNT AUTOMATED 351 10*3/uL (130-400); RED BLOOD COUNT 4.52 10*6/uL (4.50-5.90); RED CELL DISTRI WIDTH 12.7 % (0-14.5); WHITE BLOOD COUNT 19.8 10*3/uL (4.8-10.8)
== END | disposition home or self-care (01) ==
LOC: LAB 11:41
PROVIDERS: ATTEND Nurse Practitioner Family
DX: M47.812 Spondylosis without myelopathy or radiculopathy, cervical region (principal); I10 Essential (primary) hypertension; J44.1 Chronic obstructive pulmonary disease with (acute) exacerbation; R79.89 Other specified abnormal findings of blood chemistry; E08.40 Diabetes mellitus due to underlying condition with diabetic neuropathy, unspecified; R25.2 Cramp and spasm; D72.828 Other elevated white blood cell count

== ENCOUNTER → 2023-07-10 | Outpatient (CLI) | payer OTHER, MEDICAID ==
[2023-07-10 09:55] LABS: BASO % 0.2 % (0.0-1.0); HEMATOCRIT 42.3 % (42.0-52.0); LYMPH # 2.3 10*3/uL (1.3-4.4); LYMPH % 18.8 % (27.0-41.0); MEAN CELL VOLUME 91.6 fl (80.0-94.0); MEAN CORPUSCULAR HGB 30.5 pg (27.0-31.0); MEAN CORPUSCULAR HGB CONC 33.3 g/dl (33.0-37.0); MEAN PLATELET VOLUME 9.8 fl (9.6-12.3); MONO # 0.8 10*3/uL (0.1-1.0); MONO % 6.3 % (3.0-9.0); NEUT # 9.1 10*3/uL (2.3-7.9); NEUT % 74.2 % (47.0-73.0); PLATELET COUNT AUTOMATED 310 10*3/uL (130-400); RED BLOOD COUNT 4.62 10*6/uL (4.50-5.90); RED CELL DISTRI WIDTH 12.6 % (0-14.5); WHITE BLOOD COUNT 12.3 10*3/uL (4.8-10.8)
[2023-07-10 10:28] LABS: POTASSIUM 4.8 mmol/L (3.4-5.1); TOTAL PROTEIN 7.3 gm/dL (6.0-8.0)
== END | disposition home or self-care (01) ==
LOC: LAB 09:22
PROVIDERS: ATTEND Nurse Practitioner Family
DX: I10 Essential (primary) hypertension (principal); J44.1 Chronic obstructive pulmonary disease with (acute) exacerbation; R79.89 Other specified abnormal findings of blood chemistry; E08.40 Diabetes mellitus due to underlying condition with diabetic neuropathy, unspecified; M54.2 Cervicalgia; R25.2 Cramp and spasm

== ENCOUNTER → 2023-08-05 | Outpatient (CLI) | payer OTHER, MEDICAID ==
[~2023-08-05] MED LIST changes: +HUMULIN R500 UNIT/1 SQ; +VANCOMYCIN HCL125 MG PO
== END | disposition home or self-care (01) ==
LOC: LAB 12:25
PROVIDERS: ATTEND Nurse Practitioner Family
DX: Z12.5 Encounter for screening for malignant neoplasm of prostate (principal); E86.0 Dehydration; K76.0 Fatty (change of) liver, not elsewhere classified; N39.0 Urinary tract infection, site not specified; E11.65 Type 2 diabetes mellitus with hyperglycemia; R93.89 Abnormal findings on diagnostic imaging of other specified body structures; Z87.898 Personal history of other specified conditions; Z90.49 Acquired absence of other specified parts of digestive tract; Z79.4 Long term (current) use of insulin

== ENCOUNTER → 2023-08-21 | Outpatient (CLI) | payer OTHER, MEDICAID ==
[2023-08-21 13:17] LABS: BASO % 0.1 % (0.0-1.0); HEMATOCRIT 40.2 % (42.0-52.0); LYMPH # 3.1 10*3/uL (1.3-4.4); LYMPH % 28.2 % (27.0-41.0); MEAN CELL VOLUME 92.4 fl (80.0-94.0); MEAN CORPUSCULAR HGB 29.9 pg (27.0-31.0); MEAN CORPUSCULAR HGB CONC 32.3 g/dl (33.0-37.0); MEAN PLATELET VOLUME 9.6 fl (9.6-12.3); MONO % 8.8 % (3.0-9.0); NEUT # 6.7 10*3/uL (2.3-7.9); NEUT % 62.2 % (47.0-73.0); PLATELET COUNT AUTOMATED 343 10*3/uL (130-400); RED BLOOD COUNT 4.35 10*6/uL (4.50-5.90); RED CELL DISTRI WIDTH 12.7 % (0-14.5); WHITE BLOOD COUNT 10.8 10*3/uL (4.8-10.8)
[2023-08-21 13:42] LABS: POTASSIUM 4.3 mmol/L (3.4-5.1)
[2023-08-21 16:45] LABS: BILIRUBIN Negative (Negative); BLOOD Negative (Negative); CLARITY Clear (Clear); COLOR Yellow (Yellow); GLUCOSE 3+ (Negative); KETONE Trace (Negative); LEUKO ESTERASE 1+ (Negative); NITRITE Negative (Negative); SPECIFIC GRAVITY >= 1.030 (1.001-1.030); UROBILINOGEN 0.2 E.U./dl (0.0-1.0)
[2023-08-21 17:14] LABS: BACTERIA 1+
== END | disposition home or self-care (01) ==
LOC: LAB 12:26
PROVIDERS: ATTEND Urology
DX: Z12.5 Encounter for screening for malignant neoplasm of prostate (principal); D40.0 Neoplasm of uncertain behavior of prostate; R53.83 Other fatigue

== ENCOUNTER → 2023-08-29 | Outpatient (CLI) | payer OTHER, MEDICAID | END | disposition home or self-care (01) | LOC: US 12:31 | PROVIDERS: ATTEND Urology | DX: N28.1 Cyst of kidney, acquired (principal); N40.0 Benign prostatic hyperplasia without lower urinary tract symptoms; Z96.0 Presence of urogenital implants ==

== ENCOUNTER → 2023-09-30 | Outpatient (CLI) | payer OTHER, MEDICAID ==
[2023-09-30 14:34] LABS: BASO % 0.1 % (0.0-1.0); HEMATOCRIT 43.2 % (42.0-52.0); LYMPH # 2.4 10*3/uL (1.3-4.4); LYMPH % 27.9 % (27.0-41.0); MEAN CELL VOLUME 91.5 fl (80.0-94.0); MEAN CORPUSCULAR HGB 29.4 pg (27.0-31.0); MEAN CORPUSCULAR HGB CONC 32.2 g/dl (33.0-37.0); MEAN PLATELET VOLUME 9.8 fl (9.6-12.3); MONO # 0.8 10*3/uL (0.1-1.0); NEUT # 5.3 10*3/uL (2.3-7.9); NEUT % 62.1 % (47.0-73.0); PLATELET COUNT AUTOMATED 310 10*3/uL (130-400); RED BLOOD COUNT 4.72 10*6/uL (4.50-5.90); RED CELL DISTRI WIDTH 13.2 % (0-14.5); WHITE BLOOD COUNT 8.6 10*3/uL (4.8-10.8)
[2023-09-30 14:58] LABS: ACT PARTIAL THROMBO TIME 27.8 SECONDS (20.0-32.1)
[2023-09-30 15:07] LABS: POTASSIUM 4.3 mmol/L (3.4-5.1); TOTAL PROTEIN 7.6 gm/dL (6.0-8.0)
[2023-10-01 07:07] LABS: ALPHA-1-ANTITRYPSIN, SERUM 138 mg/dL (101-187)
[2023-10-01 08:10] LABS: HEPATITIS B SURFACE AB Non Reactive (.); HEPATITIS B SURFACE AG Negative (Negative)
[2023-10-01 14:08] LABS: ANTI-SMOOTH MUSCLE ANTIBODY 7 Units (0-19)
[2023-10-01 15:07] LABS: t-TRANSGLUTAMINASE (tTG) IGA 2 U/mL (0-3); t-TRANSGLUTAMINASE (tTG) IgG 3 U/mL (0-5)
== END | disposition home or self-care (01) ==
LOC: LAB 13:58
PROVIDERS: Nurse Practitioner Family; ATTEND Physician Assistant
DX: I10 Essential (primary) hypertension (principal); J44.1 Chronic obstructive pulmonary disease with (acute) exacerbation; R79.89 Other specified abnormal findings of blood chemistry; E08.40 Diabetes mellitus due to underlying condition with diabetic neuropathy, unspecified; M54.2 Cervicalgia; R25.2 Cramp and spasm; D64.9 Anemia, unspecified; R53.83 Other fatigue; K76.0 Fatty (change of) liver, not elsewhere classified

== ENCOUNTER → 2023-10-03 | Outpatient (CLI) | payer OTHER, MEDICAID ==
[2023-10-03 10:25] LABS: BILIRUBIN Negative (Negative); BLOOD Negative (Negative); CLARITY Clear (Clear); COLOR Yellow (Yellow); GLUCOSE 3+ (Negative); KETONE Negative (Negative); LEUKO ESTERASE Negative (Negative); NITRITE Negative (Negative); PH 5.5 (4.5-8.0); UROBILINOGEN 0.2 E.U./dl (0.0-1.0)
[2023-10-03 10:46] LABS: BACTERIA 1+; EPITHELIAL CELLS TNTC; RBC 0-2 rbc/hpf (0-2)
[2023-10-03 10:54] LABS: POTASSIUM 4.5 mmol/L (3.4-5.1); TOTAL PROTEIN 7.2 gm/dL (6.0-8.0)
== END | disposition home or self-care (01) ==
LOC: LAB 09:46
PROVIDERS: ATTEND Internal Medicine
DX: E11.65 Type 2 diabetes mellitus with hyperglycemia (principal); E11.40 Type 2 diabetes mellitus with diabetic neuropathy, unspecified; E55.9 Vitamin D deficiency, unspecified; E29.1 Testicular hypofunction

== ENCOUNTER → 2024-04-06 | Outpatient (CLI) | payer OTHER, MEDICAID ==
[~2024-04-06] MED LIST changes: +BREYNA 160-4.10.3 GM INH; +COLESTIPOL HYDRO1 GM PO; +FARXIGA10 M1 PO; +GLIPIZIDE10 M2 PO; +OMNICEF300 MG PO; +ZETIA10 MG PO
[2024-04-06 08:44] LABS: BASO % 0.1 % (0.0-1.0); HEMATOCRIT 40.8 % (42.0-52.0); LYMPH % 24.5 % (27.0-41.0); MEAN CELL VOLUME 91.1 fl (80.0-94.0); MEAN CORPUSCULAR HGB 30.6 pg (27.0-31.0); MEAN CORPUSCULAR HGB CONC 33.6 g/dl (33.0-37.0); MEAN PLATELET VOLUME 9.8 fl (9.6-12.3); MONO # 0.9 10*3/uL (0.1-1.0); MONO % 7.6 % (3.0-9.0); NEUT # 8.3 10*3/uL (2.3-7.9); NEUT % 67.2 % (47.0-73.0); PLATELET COUNT AUTOMATED 319 10*3/uL (130-400); RED BLOOD COUNT 4.48 10*6/uL (4.50-5.90); RED CELL DISTRI WIDTH 13.2 % (0-14.5); WHITE BLOOD COUNT 12.3 10*3/uL (4.8-10.8)
[2024-04-06 09:51] LABS: POTASSIUM 4.5 mmol/L (3.4-5.1); TOTAL PROTEIN 7.5 gm/dL (6.0-8.0)
[2024-04-06 14:38] LABS: URINE CREATININE RANDOM 88.01 mg/dL
== END | disposition home or self-care (01) ==
LOC: LAB 08:03
PROVIDERS: ATTEND Nurse Practitioner Family
DX: I10 Essential (primary) hypertension (principal); J44.1 Chronic obstructive pulmonary disease with (acute) exacerbation; E78.5 Hyperlipidemia, unspecified; R79.89 Other specified abnormal findings of blood chemistry; E11.9 Type 2 diabetes mellitus without complications

== ENCOUNTER 2024-04-12 08:08 | Inpatient (IN) | payer OTHER, MEDICAID ==
[~2024-04-12] VITALS: Ht 175.3 cm; Wt 89.8 kg
[2024-04-12] VITALS (10 sets, daily range): BP systolic 105–157; BP diastolic 60–93
[2024-04-12] MEDS ORDERED: SODIUM CHLORIDE 0.9% 1,000 ML IV ONE ×2 (08:40→10:00)
[2024-04-12] MEDS ORDERED: FARXIGA10 M1 PO (08:48)
[2024-04-12] MEDS ORDERED: FASENRA PE30 MG/1 ML SQ (08:50)
[2024-04-12 09:04] LABS: BASO % 0.2 % (0.0-1.0); HEMATOCRIT 47.7 % (42.0-52.0); LYMPH # 1.4 10*3/uL (1.3-4.4); LYMPH % 10.5 % (27.0-41.0); MEAN CELL VOLUME 90.2 fl (80.0-94.0); MEAN CORPUSCULAR HGB 29.9 pg (27.0-31.0); MEAN CORPUSCULAR HGB CONC 33.1 g/dl (33.0-37.0); MEAN PLATELET VOLUME 9.9 fl (9.6-12.3); MONO # 0.7 10*3/uL (0.1-1.0); MONO % 5.4 % (3.0-9.0); NEUT % 83.4 % (47.0-73.0); PLATELET COUNT AUTOMATED 470 10*3/uL (130-400); RED BLOOD COUNT 5.29 10*6/uL (4.50-5.90); RED CELL DISTRI WIDTH 13.2 % (0-14.5); WHITE BLOOD COUNT 13.2 10*3/uL (4.8-10.8)
[2024-04-12 09:26] LABS: ACT PARTIAL THROMBO TIME 29.9 SECONDS (20.0-32.1)
[2024-04-12 09:37] LABS: POTASSIUM 4.9 mmol/L (3.4-5.1); TOTAL PROTEIN 8.9 gm/dL (6.0-8.0)
[2024-04-12] MEDS ORDERED: INSULIN REGULAR IN 0.9 % NACL 100 ML IV SCH ×2 (10:00→13:20)
[2024-04-12 12:53] LABS: BILIRUBIN Negative (Negative); BLOOD Negative (Negative); CLARITY Clear (Clear); COLOR Yellow (Yellow); GLUCOSE 3+ (Negative); KETONE Negative (Negative); LEUKO ESTERASE Negative (Negative); NITRITE Negative (Negative); SPECIFIC GRAVITY 1.025 (1.001-1.030); UROBILINOGEN 0.2 E.U./dl (0.0-1.0)
[2024-04-12 13:05] LABS: BACTERIA 1+; CALCIUM OXALATE CRYSTALS 1+
[2024-04-12] MEDS ORDERED: BISACODYL 5 MG TAB PO PRN (13:10)
[2024-04-12] MEDS ORDERED: ACETAMINOPHEN 325 MG TAB PO PRN (13:10)
[2024-04-12] MEDS ORDERED: Ondansetron Hydrochloride 4 MG/2 ML VIAL IV PRN (13:10)
[2024-04-12] MEDS ORDERED: Magnesium Hydroxide 30 ML UDC PO PRN (13:10)
[2024-04-12] MEDS ORDERED: ACETAMINOPHEN 650 MG SUPP R PRN (13:10)
[2024-04-12] MEDS ORDERED: BISACODYL 10 MG SUPP R PRN (13:10)
[2024-04-12] MEDS ORDERED: POTASSIUM CHLORIDE 20 MEQ TAB PO PRN (13:20)
[2024-04-12] MEDS ORDERED: SODIUM CHLORIDE 0.9% 1,000 ML IV SCH (13:20)
[2024-04-12] MEDS ORDERED: POTASSIUM CHLORIDE 20 MEQ/100 ML BAG IV PRN (13:20)
[2024-04-12 13:53] LABS: POTASSIUM 5.2 mmol/L (3.4-5.1)
[2024-04-12] MEDS ORDERED: DEXTROSE 5% SALINE 0.45% 1,000 ML IV SCH (15:10)
[2024-04-12] MEDS ORDERED: Ceftriaxone Sodium 1 GM in SYRINGE INFUSION 10 ML IV SCH (16:00)
[2024-04-12 18:22] LABS: POTASSIUM 4.7 mmol/L (3.4-5.1)
[2024-04-12] MEDS ORDERED: Insulin Glargine, Recombinan 1 UNIT/0.01 ML SC ONE (21:15)
[2024-04-12] MEDS ORDERED: DEXTROSE 10 % IN WATER 250 ML IV PRN (21:20)
[2024-04-12] MEDS ORDERED: APIXABAN 5 MG TAB PO SCH (22:00)
[2024-04-12] MEDS ORDERED: INSULIN LISPRO 1 UNIT/0.01 ML SQ SCH (22:00)
[2024-04-12 22:33] LABS: POTASSIUM 4.3 mmol/L (3.4-5.1)
[2024-04-13] VITALS: BP 114/66
[2024-04-13] MEDS ORDERED: DEXTROSE 10 % IN WATER 250 ML IV PRN (01:55)
[2024-04-13] MEDS ORDERED: amLODIPine besylate 5 MG TAB PO ONE (03:10)
[2024-04-13 04:00] VITALS: BP 107/55
[2024-04-13 05:20] LABS: POTASSIUM 4.5 mmol/L (3.4-5.1)
[2024-04-13] MEDS ORDERED: Propafenone Hydrochloride 150 MG TAB PO SCH (06:00)
[2024-04-13 06:26] LABS: BASO % 0.1 % (0.0-1.0); HEMATOCRIT 39.6 % (42.0-52.0); LYMPH # 1.6 10*3/uL (1.3-4.4); MEAN CELL VOLUME 88.2 fl (80.0-94.0); MEAN CORPUSCULAR HGB CONC 35.1 g/dl (33.0-37.0); MEAN PLATELET VOLUME 10.1 fl (9.6-12.3); MONO # 1.2 10*3/uL (0.1-1.0); MONO % 10.4 % (3.0-9.0); NEUT # 8.5 10*3/uL (2.3-7.9); PLATELET COUNT AUTOMATED 337 10*3/uL (130-400); RED BLOOD COUNT 4.49 10*6/uL (4.50-5.90); RED CELL DISTRI WIDTH 13.5 % (0-14.5); WHITE BLOOD COUNT 11.4 10*3/uL (4.8-10.8)
[2024-04-13] MEDS ORDERED: Vancomycin Hydrochloride 1,000 MG in SODIUM CHLORIDE 0.9% 250 ML IV SCH ×2 (06:50→08:00)
[2024-04-13 08:00] VITALS: BP 137/78
[2024-04-13] MEDS ORDERED: Tamsulosin Hydrochloride 0.4 MG CAP PO SCH (10:00)
[2024-04-13] MEDS ORDERED: ESCITALOPRAM OXALATE 10 MG TAB PO SCH (10:00)
[2024-04-13] MEDS ORDERED: Metoprolol Tartrate 50 MG TAB PO SCH (10:00)
[2024-04-13] MEDS ORDERED: amLODIPine besylate 5 MG TAB PO SCH (10:00)
[2024-04-13 12:00] VITALS: BP 113/67
[2024-04-13 16:00] VITALS: BP 128/76
[2024-04-13 20:00] VITALS: BP 132/63
[2024-04-13] MEDS ORDERED: AQUAPHOR OINTMENT Base 50 GM TUBE T SCH (22:00)
[2024-04-14] VITALS: BP 142/59
[2024-04-14 08:00] VITALS: BP 111/70
[2024-04-14 12:00] VITALS: BP 122/58
[2024-04-14 16:00] VITALS: BP 143/68
[2024-04-14 20:00] VITALS: BP 123/59
[2024-04-15] VITALS: BP 115/59
[2024-04-15 08:00] VITALS: BP 133/73
[2024-04-15 08:03] LABS: BASO % 0.1 % (0.0-1.0); HEMATOCRIT 38.4 % (42.0-52.0); LYMPH # 2.9 10*3/uL (1.3-4.4); LYMPH % 34.2 % (27.0-41.0); MEAN CELL VOLUME 88.9 fl (80.0-94.0); MEAN CORPUSCULAR HGB 29.6 pg (27.0-31.0); MEAN CORPUSCULAR HGB CONC 33.3 g/dl (33.0-37.0); MEAN PLATELET VOLUME 9.5 fl (9.6-12.3); MONO # 0.9 10*3/uL (0.1-1.0); MONO % 10.9 % (3.0-9.0); NEUT # 4.6 10*3/uL (2.3-7.9); NEUT % 54.3 % (47.0-73.0); PLATELET COUNT AUTOMATED 340 10*3/uL (130-400); RED BLOOD COUNT 4.32 10*6/uL (4.50-5.90); RED CELL DISTRI WIDTH 13.3 % (0-14.5); WHITE BLOOD COUNT 8.4 10*3/uL (4.8-10.8)
[2024-04-17 11:08] LABS: ORGANISM ID Final report (.); RESULT 1 Bacillus cereus (.)
== END 2024-04-15 11:40 | disposition home or self-care (01) | DRG 871 ==
LOC: ED 08:08 → 4E 11:38 → ICCU 11:38 → EDHOLD 11:38 → ICCU 13:22 → 4E 04-13 15:00
PROVIDERS: Internal Medicine; Student in an Organized Health Care Education/Training Program; ADMIT Internal Medicine; ATTEND Internal Medicine
DX: A41.4 Sepsis due to anaerobes (principal); E11.10 Type 2 diabetes mellitus with ketoacidosis without coma; N17.0 Acute kidney failure with tubular necrosis; N39.0 Urinary tract infection, site not specified; E87.1 Hypo-osmolality and hyponatremia; I50.32 Chronic diastolic (congestive) heart failure; R65.20 Severe sepsis without septic shock; E87.5 Hyperkalemia; D75.839 Thrombocytosis, unspecified; E83.52 Hypercalcemia; I10 Essential (primary) hypertension; J44.9 Chronic obstructive pulmonary disease, unspecified; J45.909 Unspecified asthma, uncomplicated; I48.91 Unspecified atrial fibrillation; G47.33 Obstructive sleep apnea (adult) (pediatric); E78.5 Hyperlipidemia, unspecified; N40.0 Benign prostatic hyperplasia without lower urinary tract symptoms; F32.A Depression, unspecified; Z90.49 Acquired absence of other specified parts of digestive tract; Z82.5 Family history of asthma and other chronic lower respiratory diseases; Z82.49 Family history of ischemic heart disease and other diseases of the circulatory system; Z91.041 Radiographic dye allergy status; Z91.013 Allergy to seafood; Z79.51 Long term (current) use of inhaled steroids; Z79.899 Other long term (current) drug therapy; Z79.4 Long term (current) use of insulin

== ENCOUNTER → 2024-04-23 | Outpatient (CLI) | payer OTHER, MEDICAID ==
[~2024-04-23] MED LIST changes: +FASENRA PE30 MG/1 ML SQ
[2024-04-23 07:59] LABS: BILIRUBIN Negative (Negative); BLOOD Negative (Negative); CLARITY Clear (Clear); COLOR Yellow (Yellow); GLUCOSE Negative (Negative); KETONE Negative (Negative); LEUKO ESTERASE Negative (Negative); NITRITE Negative (Negative); PH 5.5 (4.5-8.0); UROBILINOGEN 0.2 E.U./dl (0.0-1.0)
[2024-04-23 08:25] LABS: ALKALINE PHOSPHATASE 57 U/L (46-116); BUN 14 mg/dl (9-23); CHLORIDE 103 mmol/L (98-107); CHOLESTEROL 128 mg/dL (<200); LDL CHOLESTEROL 48 mg/dL (9-159); POTASSIUM 4.2 mmol/L (3.4-5.1); SGPT/ALT 21 U/L (5-49); TOTAL PROTEIN 6.5 gm/dL (6.0-8.0); TRIGLYCERIDES 143 mg/dl (<150)
[2024-04-23 09:19] LABS: VITAMIN D, 25-HYDROXY 37.2 ng/mL (30-100)
[2024-04-23 10:09] LABS: RBC 0-2 rbc/hpf (0-2)
== END | disposition home or self-care (01) ==
LOC: LAB 07:36
PROVIDERS: ATTEND Internal Medicine
DX: E11.65 Type 2 diabetes mellitus with hyperglycemia (principal); E78.5 Hyperlipidemia, unspecified; E11.40 Type 2 diabetes mellitus with diabetic neuropathy, unspecified; E29.1 Testicular hypofunction; E55.9 Vitamin D deficiency, unspecified; N40.0 Benign prostatic hyperplasia without lower urinary tract symptoms

== ENCOUNTER → 2024-05-07 | Outpatient (CLI) | payer OTHER, MEDICAID ==
[2024-05-07 07:35] LABS: BASO % 0.3 % (0.0-1.0); LYMPH # 2.5 10*3/uL (1.3-4.4); LYMPH % 24.6 % (27.0-41.0); MEAN CELL VOLUME 92.6 fl (80.0-94.0); MEAN CORPUSCULAR HGB 30.1 pg (27.0-31.0); MEAN CORPUSCULAR HGB CONC 32.5 g/dl (33.0-37.0); MEAN PLATELET VOLUME 9.5 fl (9.6-12.3); MONO # 1.2 10*3/uL (0.1-1.0); MONO % 11.5 % (3.0-9.0); NEUT # 6.3 10*3/uL (2.3-7.9); NEUT % 62.9 % (47.0-73.0); PLATELET COUNT AUTOMATED 333 10*3/uL (130-400); RED BLOOD COUNT 4.32 10*6/uL (4.50-5.90); RED CELL DISTRI WIDTH 13.4 % (0-14.5)
[2024-05-07 07:45] LABS: URINE CREATININE RANDOM 110.91 mg/dL
[2024-05-07 08:35] LABS: POTASSIUM 4.3 mmol/L (3.4-5.1); URIC ACID 4.1 mg/dL (3.7-9.2)
[2024-05-07 08:38] LABS: VITAMIN D, 25-HYDROXY 32.7 ng/mL (30-100)
== END | disposition home or self-care (01) ==
LOC: LAB 07:13
PROVIDERS: ATTEND Nurse Practitioner Adult Health
DX: I12.9 Hypertensive chronic kidney disease with stage 1 through stage 4 chronic kidney disease, or unspecified chronic kidney disease (principal); E11.22 Type 2 diabetes mellitus with diabetic chronic kidney disease; N18.31 Chronic kidney disease, stage 3a; E55.9 Vitamin D deficiency, unspecified

== ENCOUNTER → 2024-05-13 | Outpatient (CLI) | payer OTHER, MEDICAID ==
[2024-05-13 10:06] LABS: BASO % 0.2 % (0.0-1.0); LYMPH # 2.8 10*3/uL (1.3-4.4); LYMPH % 22.9 % (27.0-41.0); MEAN CELL VOLUME 91.1 fl (80.0-94.0); MEAN CORPUSCULAR HGB 30.2 pg (27.0-31.0); MEAN CORPUSCULAR HGB CONC 33.2 g/dl (33.0-37.0); MEAN PLATELET VOLUME 9.4 fl (9.6-12.3); MONO # 1.2 10*3/uL (0.1-1.0); MONO % 9.9 % (3.0-9.0); NEUT # 8.1 10*3/uL (2.3-7.9); NEUT % 66.3 % (47.0-73.0); PLATELET COUNT AUTOMATED 375 10*3/uL (130-400); RED CELL DISTRI WIDTH 13.6 % (0-14.5); WHITE BLOOD COUNT 12.2 10*3/uL (4.8-10.8)
[2024-05-13 10:09] LABS: BILIRUBIN Negative (Negative); BLOOD Negative (Negative); CLARITY Clear (Clear); COLOR Yellow (Yellow); GLUCOSE Trace (Negative); KETONE Negative (Negative); LEUKO ESTERASE Negative (Negative); NITRITE Negative (Negative); PH 5.5 (4.5-8.0); UROBILINOGEN 0.2 E.U./dl (0.0-1.0)
[2024-05-13 10:18] LABS: URINE CREATININE RANDOM 111.49 mg/dL
[2024-05-13 10:42] LABS: POTASSIUM 4.5 mmol/L (3.4-5.1)
[2024-05-13 10:56] LABS: VITAMIN D, 25-HYDROXY 35.6 ng/mL (30-100)
[2024-05-13 11:44] LABS: MUCOUS TRACE; RBC 0-2 rbc/hpf (0-2)
== END | disposition home or self-care (01) ==
LOC: LAB 09:44
PROVIDERS: ATTEND Internal Medicine Nephrology
DX: E11.22 Type 2 diabetes mellitus with diabetic chronic kidney disease (principal); N18.30 Chronic kidney disease, stage 3 unspecified; E55.9 Vitamin D deficiency, unspecified; D63.1 Anemia in chronic kidney disease

== ENCOUNTER → 2024-05-20 | Outpatient (CLI) | payer OTHER, MEDICAID ==
[2024-05-20 08:15] LABS: BASO % 0.2 % (0.0-1.0); HEMATOCRIT 42.4 % (42.0-52.0); LYMPH # 3.8 10*3/uL (1.3-4.4); LYMPH % 29.7 % (27.0-41.0); MEAN CELL VOLUME 89.6 fl (80.0-94.0); MEAN CORPUSCULAR HGB CONC 33.5 g/dl (33.0-37.0); MEAN PLATELET VOLUME 9.4 fl (9.6-12.3); MONO # 1.4 10*3/uL (0.1-1.0); MONO % 10.6 % (3.0-9.0); NEUT # 7.6 10*3/uL (2.3-7.9); NEUT % 58.8 % (47.0-73.0); PLATELET COUNT AUTOMATED 362 10*3/uL (130-400); RED BLOOD COUNT 4.73 10*6/uL (4.50-5.90); RED CELL DISTRI WIDTH 13.2 % (0-14.5); WHITE BLOOD COUNT 12.9 10*3/uL (4.8-10.8)
[2024-05-20 08:22] LABS: BILIRUBIN Negative (Negative); BLOOD Negative (Negative); CLARITY Clear (Clear); COLOR Yellow (Yellow); GLUCOSE 2+ (Negative); KETONE Negative (Negative); LEUKO ESTERASE Trace (Negative); NITRITE Negative (Negative); PH 5.5 (4.5-8.0); SPECIFIC GRAVITY 1.025 (1.001-1.030); UROBILINOGEN 0.2 E.U./dl (0.0-1.0)
[2024-05-20 08:46] LABS: POTASSIUM 4.2 mmol/L (3.4-5.1); TOTAL PROTEIN 7.6 gm/dL (6.0-8.0)
[2024-05-20 08:56] LABS: YEAST TRACE
== END | disposition home or self-care (01) ==
LOC: LAB 07:51
PROVIDERS: ATTEND Nurse Practitioner Family
DX: E11.65 Type 2 diabetes mellitus with hyperglycemia (principal); E78.5 Hyperlipidemia, unspecified; J44.1 Chronic obstructive pulmonary disease with (acute) exacerbation; N39.0 Urinary tract infection, site not specified; R79.89 Other specified abnormal findings of blood chemistry

== ENCOUNTER → 2024-05-22 | Outpatient (CLI) | payer OTHER, MEDICAID ==
[2024-05-22 08:24] LABS: VITAMIN D, 25-HYDROXY 37.3 ng/mL (30-100)
== END | disposition home or self-care (01) ==
LOC: LAB 07:05
PROVIDERS: ATTEND Nurse Practitioner Family
DX: E55.9 Vitamin D deficiency, unspecified (principal); R89.9 Unspecified abnormal finding in specimens from other organs, systems and tissues

== ENCOUNTER → 2024-07-14 | Outpatient (CLI) | payer OTHER, MEDICAID ==
[2024-07-14 08:04] LABS: BASO % 0.1 % (0.0-1.0); HEMATOCRIT 43.1 % (42.0-52.0); MEAN CELL VOLUME 92.3 fl (80.0-94.0); MEAN CORPUSCULAR HGB 30.6 pg (27.0-31.0); MEAN CORPUSCULAR HGB CONC 33.2 g/dl (33.0-37.0); MEAN PLATELET VOLUME 9.7 fl (9.6-12.3); MONO # 0.8 10*3/uL (0.1-1.0); MONO % 7.2 % (3.0-9.0); NEUT # 7.6 10*3/uL (2.3-7.9); NEUT % 68.2 % (47.0-73.0); PLATELET COUNT AUTOMATED 357 10*3/uL (130-400); RED BLOOD COUNT 4.67 10*6/uL (4.50-5.90); WHITE BLOOD COUNT 11.1 10*3/uL (4.8-10.8)
[2024-07-14 08:17] LABS: URINE CREATININE RANDOM 65.58 mg/dL
[2024-07-14 08:47] LABS: POTASSIUM 3.7 mmol/L (3.4-5.1)
[2024-07-14 08:50] LABS: VITAMIN D, 25-HYDROXY 30.1 ng/mL (30-100)
[2024-07-14 10:47] LABS: BILIRUBIN Negative (Negative); BLOOD Negative (Negative); CLARITY Clear (Clear); COLOR Yellow (Yellow); GLUCOSE 3+ (Negative); KETONE Negative (Negative); LEUKO ESTERASE Negative (Negative); NITRITE Negative (Negative); SPECIFIC GRAVITY 1.025 (1.001-1.030); UROBILINOGEN 0.2 E.U./dl (0.0-1.0)
[2024-07-14 12:45] LABS: BACTERIA TRACE; YEAST 2+
[2024-07-15 02:03] LABS: TOTAL PROTEIN, SERUM 7.3 g/dL (6.0-8.5)
[2024-07-15 05:03] LABS: IMMUNOGLOBULIN G, Qn 855 mg/dL (603-1613); IMMUNOGLOBULIN M, Qn 19 mg/dL (15-143)
[2024-07-15 16:05] LABS: ALBUMIN 3.6 g/dL (2.9-4.4); ALPHA-1-GLOBULIN 0.2 g/dL (0.0-0.4); ALPHA-2-GLOBULIN 1.1 g/dL (0.4-1.0); BETA GLOBULIN 1.6 g/dL (0.7-1.3); FREE KAPPA LIGHT CHAINS 36.2 mg/L (3.3-19.4); FREE LAMBDA LIGHT CHAINS 31.7 mg/L (5.7-26.3); GAMMA GLOBULIN 0.7 g/dL (0.4-1.8); GLOBULIN, TOTAL 3.7 g/dL (2.2-3.9); KAPPA/LAMBDA RATIO 1.14 (0.26-1.65)
== END | disposition home or self-care (01) ==
LOC: LAB 07:29
PROVIDERS: ATTEND Internal Medicine Nephrology
DX: N18.30 Chronic kidney disease, stage 3 unspecified (principal); E83.52 Hypercalcemia; D63.1 Anemia in chronic kidney disease

== ENCOUNTER → 2024-08-13 | Outpatient (CLI) | payer OTHER, MEDICAID ==
[~2024-08-13] MED LIST changes: +DOXYCYCLINE HY100 M3 PO; +OMEPRAZOLE40 MG PO
[2024-08-13 08:22] LABS: BASO % 0.2 % (0.0-1.0); HEMATOCRIT 42.6 % (42.0-52.0); MEAN CELL VOLUME 94.9 fl (80.0-94.0); MEAN CORPUSCULAR HGB 29.8 pg (27.0-31.0); MEAN CORPUSCULAR HGB CONC 31.5 g/dl (33.0-37.0); MONO # 1.1 10*3/uL (0.1-1.0); NEUT # 12.7 10*3/uL (2.3-7.9); NEUT % 72.2 % (47.0-73.0); PLATELET COUNT AUTOMATED 291 10*3/uL (130-400); RED BLOOD COUNT 4.49 10*6/uL (4.50-5.90); RED CELL DISTRI WIDTH 13.2 % (0-14.5); WHITE BLOOD COUNT 17.6 10*3/uL (4.8-10.8)
[2024-08-13 08:23] LABS: BILIRUBIN Negative (Negative); BLOOD Negative (Negative); CLARITY Clear (Clear); COLOR Yellow (Yellow); GLUCOSE 2+ (Negative); KETONE Negative (Negative); LEUKO ESTERASE Trace (Negative); NITRITE Negative (Negative); SPECIFIC GRAVITY 1.015 (1.001-1.030); UROBILINOGEN 0.2 E.U./dl (0.0-1.0)
[2024-08-13 09:09] LABS: POTASSIUM 4.5 mmol/L (3.4-5.1); TOTAL PROTEIN 6.4 gm/dL (6.0-8.0)
[2024-08-13 09:13] LABS: VITAMIN D, 25-HYDROXY 30.4 ng/mL (30-100)
[2024-08-13 09:14] LABS: RBC 0-2 rbc/hpf (0-2); YEAST 1+
[2024-08-13 09:15] LABS: BACTERIA TRACE
== END | disposition home or self-care (01) ==
LOC: LAB 07:39
PROVIDERS: Nurse Practitioner Family; ATTEND Internal Medicine
DX: N40.0 Benign prostatic hyperplasia without lower urinary tract symptoms (principal); E29.1 Testicular hypofunction; E55.9 Vitamin D deficiency, unspecified; E11.40 Type 2 diabetes mellitus with diabetic neuropathy, unspecified; E11.65 Type 2 diabetes mellitus with hyperglycemia

== ENCOUNTER → 2024-08-20 | Outpatient (CLI) | payer OTHER, MEDICAID ==
[2024-08-20 08:05] LABS: BASO % 0.1 % (0.0-1.0); HEMATOCRIT 42.5 % (42.0-52.0); MEAN CELL VOLUME 94.7 fl (80.0-94.0); MEAN CORPUSCULAR HGB 29.6 pg (27.0-31.0); MEAN CORPUSCULAR HGB CONC 31.3 g/dl (33.0-37.0); MEAN PLATELET VOLUME 9.5 fl (9.6-12.3); MONO # 0.6 10*3/uL (0.1-1.0); MONO % 6.7 % (3.0-9.0); NEUT # 6.2 10*3/uL (2.3-7.9); NEUT % 65.7 % (47.0-73.0); PLATELET COUNT AUTOMATED 282 10*3/uL (130-400); RED BLOOD COUNT 4.49 10*6/uL (4.50-5.90); WHITE BLOOD COUNT 9.5 10*3/uL (4.8-10.8)
[2024-08-20 08:15] LABS: BILIRUBIN Negative (Negative); BLOOD Negative (Negative); CLARITY Clear (Clear); COLOR Yellow (Yellow); GLUCOSE 2+ (Negative); KETONE Negative (Negative); LEUKO ESTERASE Negative (Negative); NITRITE Negative (Negative); PH 5.5 (4.5-8.0); UROBILINOGEN 0.2 E.U./dl (0.0-1.0)
[2024-08-20 08:24] LABS: BACTERIA TRACE; RBC 0-2 rbc/hpf (0-2)
[2024-08-20 08:25] LABS: YEAST TRACE
[2024-08-20 09:33] LABS: POTASSIUM 3.4 mmol/L (3.4-5.1)
[2024-08-20 12:50] LABS: VITAMIN D, 25-HYDROXY 39.6 ng/mL (30-100)
[2024-08-21 04:06] LABS: IMMUNOGLOBULIN M, Qn 19 mg/dL (15-143)
[2024-08-21 06:07] LABS: IMMUNOGLOBULIN G, Qn 685 mg/dL (603-1613)
[2024-08-21 15:06] LABS: FREE KAPPA LIGHT CHAINS 40.7 mg/L (3.3-19.4); FREE LAMBDA LIGHT CHAINS 29.5 mg/L (5.7-26.3); K/L RATIO 1.38 (0.26-1.65)
[2024-08-21 16:06] LABS: A/G RATIO 1.1 (0.7-1.7); ALBUMIN 3.4 g/dL (2.9-4.4); ALPHA-1-GLOBULIN 0.2 g/dL (0.0-0.4); ALPHA-2-GLOBULIN 1.1 g/dL (0.4-1.0); BETA GLOBULIN 1.3 g/dL (0.7-1.3); GAMMA GLOBULIN 0.5 g/dL (0.4-1.8); GLOBULIN, TOTAL 3.2 g/dL (2.2-3.9)
== END | disposition home or self-care (01) ==
LOC: LAB 07:19
PROVIDERS: ATTEND Internal Medicine Nephrology
DX: N18.30 Chronic kidney disease, stage 3 unspecified (principal); E55.9 Vitamin D deficiency, unspecified; D63.1 Anemia in chronic kidney disease

== ENCOUNTER → 2024-09-16 | Outpatient (CLI) | payer OTHER, MEDICAID | END | disposition home or self-care (01) | LOC: ORTHO 00:50 | PROVIDERS: ATTEND Orthopaedic Surgery | DX: M19.032 Primary osteoarthritis, left wrist (principal); G56.02 Carpal tunnel syndrome, left upper limb ==

== ENCOUNTER → 2024-10-24 | Outpatient (CLI) | payer OTHER, MEDICAID | END | disposition home or self-care (01) | LOC: RAD 09:44 | PROVIDERS: ATTEND Nurse Practitioner Adult Health | DX: M54.50 Low back pain, unspecified (principal) ==

== ENCOUNTER → 2024-11-04 | Outpatient (CLI) | payer OTHER, MEDICAID ==
[2024-11-04 10:29] LABS: POTASSIUM 4.5 mmol/L (3.4-5.1)
== END | disposition home or self-care (01) ==
LOC: LAB 09:47
PROVIDERS: ATTEND Nurse Practitioner Family
DX: N18.30 Chronic kidney disease, stage 3 unspecified (principal)

== ENCOUNTER → 2024-11-25 | Outpatient (CLI) | payer OTHER, MEDICAID ==
[2024-11-25 11:59] LABS: BASO % 0.1 % (0.0-1.0); HEMATOCRIT 41.3 % (42.0-52.0); MEAN CELL VOLUME 91.2 fl (80.0-94.0); MEAN CORPUSCULAR HGB 30.2 pg (27.0-31.0); MEAN CORPUSCULAR HGB CONC 33.2 g/dl (33.0-37.0); MEAN PLATELET VOLUME 10.1 fl (9.6-12.3); MONO % 10.3 % (3.0-9.0); PLATELET COUNT AUTOMATED 340 10*3/uL (130-400); RED BLOOD COUNT 4.53 10*6/uL (4.50-5.90); RED CELL DISTRI WIDTH 12.8 % (0-14.5); WHITE BLOOD COUNT 9.5 10*3/uL (4.8-10.8)
[2024-11-25 12:15] LABS: POTASSIUM 4.2 mmol/L (3.4-5.1); TOTAL PROTEIN 7.5 gm/dL (6.0-8.0)
== END | disposition home or self-care (01) ==
LOC: LAB 09:45
PROVIDERS: ATTEND Nurse Practitioner Family
DX: I10 Essential (primary) hypertension (principal); E11.65 Type 2 diabetes mellitus with hyperglycemia; E78.5 Hyperlipidemia, unspecified; F51.04 Psychophysiologic insomnia; G56.02 Carpal tunnel syndrome, left upper limb

== ENCOUNTER → 2024-12-30 | Outpatient (CLI) | payer OTHER, MEDICAID ==
[2024-12-30 08:59] LABS: BILIRUBIN Negative (Negative); BLOOD Negative (Negative); CLARITY Clear (Clear); COLOR Yellow (Yellow); GLUCOSE 3+ (Negative); KETONE Negative (Negative); LEUKO ESTERASE 1+ (Negative); NITRITE Negative (Negative); PH 5.5 (4.5-8.0); POTASSIUM 4.3 mmol/L (3.4-5.1); SPECIFIC GRAVITY >= 1.030 (1.001-1.030); TOTAL PROTEIN 7.2 gm/dL (6.0-8.0); UROBILINOGEN 0.2 E.U./dl (0.0-1.0)
[2024-12-30 09:06] LABS: VITAMIN D, 25-HYDROXY 46.6 ng/mL (30-100)
[2024-12-30 09:37] LABS: BACTERIA 1+; WBC 21-30 wbc/hpf (0-5)
== END | disposition home or self-care (01) ==
LOC: LAB 07:51
PROVIDERS: ATTEND Internal Medicine
DX: E11.65 Type 2 diabetes mellitus with hyperglycemia (principal); E78.5 Hyperlipidemia, unspecified; E11.40 Type 2 diabetes mellitus with diabetic neuropathy, unspecified; N40.0 Benign prostatic hyperplasia without lower urinary tract symptoms; E55.9 Vitamin D deficiency, unspecified

== ENCOUNTER → 2025-02-20 | Outpatient (CLI) | payer OTHER, MEDICAID ==
[~2025-02-20] MED LIST changes: +ALBUTEROL SULFATE HF INH; +COLCHICINE0.6 M2 PO; +HUMULIN R100 UNIT/1 IJ; +HYDROXYZINE HCL25 MG PO; +IBU400 M1 PO; +IBUPROFEN600 MG PO; +LEXAPRO10 MG PO; +PANTOPRAZOLE SO40 MG PO; +TOPCARE OMEPRAZ20 MG PO; +TOPROL XL50 M1 PO; +VITAMIN D3125 MCG PO
[2025-02-20 08:11] LABS: BILIRUBIN Negative (Negative); BLOOD Negative (Negative); CLARITY Clear (Clear); COLOR Yellow (Yellow); KETONE Negative (Negative); LEUKO ESTERASE Negative (Negative); NITRITE Negative (Negative); PH 5.0 (4.5-8.0); SPECIFIC GRAVITY >= 1.030 (1.001-1.030); UROBILINOGEN 0.2 E.U./dl (0.0-1.0)
[2025-02-20 08:22] LABS: BACTERIA TRACE; RBC 0-2 rbc/hpf (0-2); YEAST TRACE
[2025-02-20 08:46] LABS: BUN 19.0 mg/dl (9-23); LDL CHOLESTEROL 35.0 mg/dL (9-159); SGPT/ALT 15.0 U/L (5-49)
[2025-02-20 10:12] LABS: VITAMIN D, 25-HYDROXY 48.5 ng/mL (30-100)
== END | disposition home or self-care (01) ==
LOC: LAB 07:35
PROVIDERS: Internal Medicine; ATTEND Nurse Practitioner Family
DX: N40.0 Benign prostatic hyperplasia without lower urinary tract symptoms (principal); E11.65 Type 2 diabetes mellitus with hyperglycemia; E29.1 Testicular hypofunction; E11.40 Type 2 diabetes mellitus with diabetic neuropathy, unspecified; E55.9 Vitamin D deficiency, unspecified

== ENCOUNTER → 2025-02-24 | Outpatient (CLI) | payer OTHER ==
[2025-02-24 07:25] LABS: BASO # 0.0 10*3/uL (0.0-0.1); BASO % 0.2 % (0.0-1.0); EOS # 0.0 10*3/uL (0.0-0.4); EOS % 0.0 % (1.0-4.0); MEAN CELL VOLUME 90.5 fl (80.0-94.0); MEAN CORPUSCULAR HGB 29.0 pg (27.0-31.0); MEAN PLATELET VOLUME 9.1 fl (9.6-12.3); MONO # 1.0 10*3/uL (0.1-1.0); MONO % 10.3 % (3.0-9.0); NEUT # 6.6 10*3/uL (2.3-7.9); NEUT % 65.6 % (47.0-73.0); NUCLEATED RED BLOOD CELL 0.0 % (0.0-0.0); NUCLEATED RED BLOOD CELL 0.0 10*3/uL (0.0-0.0); PLATELET COUNT AUTOMATED 402 10*3/uL (130-400); RED CELL DISTRI WIDTH 13.2 % (0-14.5)
[2025-02-24 08:20] LABS: BUN 16 mg/dl (9-23); SGPT/ALT 28 U/L (5-49)
== END ==
LOC: LAB 07:02
PROVIDERS: ATTEND Internal Medicine
DX: N17.0 Acute kidney failure with tubular necrosis (principal); J18.9 Pneumonia, unspecified organism

== ENCOUNTER 2025-03-04 09:46 | Emergency (ER) | payer OTHER ==
[~2025-03-04] VITALS: Ht 175.2 cm; Wt 100.7 kg
[2025-03-04 09:49] VITALS: BP 134/91
[2025-03-04] MEDS ORDERED: EUCERIN LOTION 120 GM TUBE T ONE (10:30)
[2025-03-04] MEDS ORDERED: Bacitracin Zinc 14 GM TUBE T ONE (10:35)
== END 2025-03-04 10:47 | disposition home or self-care (01) ==
LOC: ED 09:46
DX: D23.62 Other benign neoplasm of skin of left upper limb, including shoulder (principal); Z79.899 Other long term (current) drug therapy; I10 Essential (primary) hypertension; E11.9 Type 2 diabetes mellitus without complications; J44.9 Chronic obstructive pulmonary disease, unspecified; E78.5 Hyperlipidemia, unspecified; Z91.041 Radiographic dye allergy status; Z91.013 Allergy to seafood; Z90.49 Acquired absence of other specified parts of digestive tract; Z98.890 Other specified postprocedural states

== ENCOUNTER → 2025-03-22 | Outpatient (CLI) | payer OTHER ==
[2025-03-22 17:16] LABS: BASO # 0.0 10*3/uL (0.0-0.1); BASO % 0.1 % (0.0-1.0); EOS # 0.0 10*3/uL (0.0-0.4); EOS % 0.0 % (1.0-4.0); MEAN CELL VOLUME 89.7 fl (80.0-94.0); MEAN CORPUSCULAR HGB 26.4 pg (27.0-31.0); MEAN PLATELET VOLUME 9.7 fl (9.6-12.3); MONO # 1.1 10*3/uL (0.1-1.0); MONO % 11.0 % (3.0-9.0); NEUT # 7.0 10*3/uL (2.3-7.9); NEUT % 69.2 % (47.0-73.0); NUCLEATED RED BLOOD CELL 0.0 % (0.0-0.0); NUCLEATED RED BLOOD CELL 0.0 10*3/uL (0.0-0.0); PLATELET COUNT AUTOMATED 437 10*3/uL (130-400); RED CELL DISTRI WIDTH 13.5 % (0-14.5)
[2025-03-22 17:27] LABS: BUN 19 mg/dl (9-23); LDL CHOLESTEROL 54 mg/dL (9-159); SGPT/ALT 16 U/L (5-49)
== END | disposition home or self-care (01) ==
LOC: RHCWE 12:43
PROVIDERS: ATTEND Nurse Practitioner Family
DX: I10 Essential (primary) hypertension (principal); E11.65 Type 2 diabetes mellitus with hyperglycemia; E78.5 Hyperlipidemia, unspecified; G56.02 Carpal tunnel syndrome, left upper limb; F51.04 Psychophysiologic insomnia

== ENCOUNTER → 2025-03-26 | Outpatient (CLI) | payer OTHER | END | disposition home or self-care (01) | LOC: ORTHO 03:05 | PROVIDERS: ATTEND Orthopaedic Surgery | DX: M19.042 Primary osteoarthritis, left hand (principal); M25.842 Other specified joint disorders, left hand; M79.645 Pain in left finger(s) ==

== ENCOUNTER → 2025-04-01 | Outpatient (CLI) | payer OTHER | END | disposition home or self-care (01) | LOC: CT 09:07 | PROVIDERS: ATTEND Internal Medicine Critical Care Medicine | DX: R91.8 Other nonspecific abnormal finding of lung field (principal); I31.39 Other pericardial effusion (noninflammatory); K76.0 Fatty (change of) liver, not elsewhere classified; K80.20 Calculus of gallbladder without cholecystitis without obstruction; K44.9 Diaphragmatic hernia without obstruction or gangrene; J90 Pleural effusion, not elsewhere classified ==

== ENCOUNTER → 2025-04-05 | Outpatient (CLI) | payer OTHER | END | disposition home or self-care (01) | LOC: WOUNDCARE 09:39 | PROVIDERS: ATTEND Nurse Practitioner Family | DX: L98.491 Non-pressure chronic ulcer of skin of other sites limited to breakdown of skin (principal); R21 Rash and other nonspecific skin eruption; S50.862A Insect bite (nonvenomous) of left forearm, initial encounter; L02.414 Cutaneous abscess of left upper limb; E78.00 Pure hypercholesterolemia, unspecified; I10 Essential (primary) hypertension; J44.9 Chronic obstructive pulmonary disease, unspecified; E11.22 Type 2 diabetes mellitus with diabetic chronic kidney disease; I13.0 Hypertensive heart and chronic kidney disease with heart failure and stage 1 through stage 4 chronic kidney disease, or unspecified chronic kidney disease; N18.30 Chronic kidney disease, stage 3 unspecified; I50.32 Chronic diastolic (congestive) heart failure; I48.91 Unspecified atrial fibrillation; F32.A Depression, unspecified; Z85.038 Personal history of other malignant neoplasm of large intestine; N40.0 Benign prostatic hyperplasia without lower urinary tract symptoms; Z98.890 Other specified postprocedural states; Z79.4 Long term (current) use of insulin; Z79.899 Other long term (current) drug therapy; W57.XXXA Bitten or stung by nonvenomous insect and other nonvenomous arthropods, initial encounter; Y93.89 Activity, other specified; Y92.89 Other specified places as the place of occurrence of the external cause; Y99.8 Other external cause status ==

== ENCOUNTER → 2025-04-12 | Outpatient (CLI) | payer OTHER | END | disposition home or self-care (01) | LOC: WOUNDCARE 01:22 | PROVIDERS: ATTEND Nurse Practitioner Family | DX: R21 Rash and other nonspecific skin eruption (principal); L98.491 Non-pressure chronic ulcer of skin of other sites limited to breakdown of skin; L02.414 Cutaneous abscess of left upper limb; S50.862D Insect bite (nonvenomous) of left forearm, subsequent encounter; R60.9 Edema, unspecified; I13.0 Hypertensive heart and chronic kidney disease with heart failure and stage 1 through stage 4 chronic kidney disease, or unspecified chronic kidney disease; E11.22 Type 2 diabetes mellitus with diabetic chronic kidney disease; N18.30 Chronic kidney disease, stage 3 unspecified; I50.32 Chronic diastolic (congestive) heart failure; I48.91 Unspecified atrial fibrillation; E78.00 Pure hypercholesterolemia, unspecified; J45.909 Unspecified asthma, uncomplicated; N40.0 Benign prostatic hyperplasia without lower urinary tract symptoms; F32.A Depression, unspecified; Z98.890 Other specified postprocedural states; Z79.899 Other long term (current) drug therapy; X58.XXXD Exposure to other specified factors, subsequent encounter ==

== ENCOUNTER → 2025-04-30 | Outpatient (CLI) | payer OTHER | END | disposition home or self-care (01) | LOC: WOUNDCARE 00:13 | PROVIDERS: ATTEND Nurse Practitioner Family | DX: R21 Rash and other nonspecific skin eruption (principal); R60.9 Edema, unspecified; L02.414 Cutaneous abscess of left upper limb; L98.491 Non-pressure chronic ulcer of skin of other sites limited to breakdown of skin; S50.862D Insect bite (nonvenomous) of left forearm, subsequent encounter; I13.0 Hypertensive heart and chronic kidney disease with heart failure and stage 1 through stage 4 chronic kidney disease, or unspecified chronic kidney disease; E11.22 Type 2 diabetes mellitus with diabetic chronic kidney disease; N18.30 Chronic kidney disease, stage 3 unspecified; I50.9 Heart failure, unspecified; I48.91 Unspecified atrial fibrillation; E78.00 Pure hypercholesterolemia, unspecified; J44.9 Chronic obstructive pulmonary disease, unspecified; N40.0 Benign prostatic hyperplasia without lower urinary tract symptoms; F32.A Depression, unspecified; Z98.890 Other specified postprocedural states; Z79.899 Other long term (current) drug therapy; X58.XXXD Exposure to other specified factors, subsequent encounter ==

== ENCOUNTER → 2025-05-14 | Outpatient (CLI) | payer OTHER | END | disposition home or self-care (01) | LOC: WOUNDCARE 00:18 | PROVIDERS: ATTEND Nurse Practitioner Family | DX: R21 Rash and other nonspecific skin eruption (principal); L02.414 Cutaneous abscess of left upper limb; L98.491 Non-pressure chronic ulcer of skin of other sites limited to breakdown of skin; S50.862D Insect bite (nonvenomous) of left forearm, subsequent encounter; R60.9 Edema, unspecified; I13.0 Hypertensive heart and chronic kidney disease with heart failure and stage 1 through stage 4 chronic kidney disease, or unspecified chronic kidney disease; E11.22 Type 2 diabetes mellitus with diabetic chronic kidney disease; N18.30 Chronic kidney disease, stage 3 unspecified; I50.9 Heart failure, unspecified; J45.909 Unspecified asthma, uncomplicated; I48.91 Unspecified atrial fibrillation; N40.0 Benign prostatic hyperplasia without lower urinary tract symptoms; F32.A Depression, unspecified; Z98.890 Other specified postprocedural states; Z79.4 Long term (current) use of insulin; Z79.899 Other long term (current) drug therapy; X58.XXXD Exposure to other specified factors, subsequent encounter ==

== ENCOUNTER → 2025-05-28 | Outpatient (CLI) | payer OTHER | END | disposition home or self-care (01) | LOC: WOUNDCARE 02:55 | PROVIDERS: ATTEND Nurse Practitioner Family | DX: R21 Rash and other nonspecific skin eruption (principal); L02.414 Cutaneous abscess of left upper limb; L98.491 Non-pressure chronic ulcer of skin of other sites limited to breakdown of skin; S50.862D Insect bite (nonvenomous) of left forearm, subsequent encounter; I13.0 Hypertensive heart and chronic kidney disease with heart failure and stage 1 through stage 4 chronic kidney disease, or unspecified chronic kidney disease; N18.30 Chronic kidney disease, stage 3 unspecified; I50.32 Chronic diastolic (congestive) heart failure; I48.91 Unspecified atrial fibrillation; E78.00 Pure hypercholesterolemia, unspecified; J44.9 Chronic obstructive pulmonary disease, unspecified; N40.0 Benign prostatic hyperplasia without lower urinary tract symptoms; F32.A Depression, unspecified; Z85.038 Personal history of other malignant neoplasm of large intestine; Z98.890 Other specified postprocedural states; Z79.4 Long term (current) use of insulin; Z79.899 Other long term (current) drug therapy; X58.XXXD Exposure to other specified factors, subsequent encounter ==

== ENCOUNTER → 2025-06-01 | Outpatient (CLI) | payer OTHER ==
[2025-06-01 07:45] LABS: BILIRUBIN Negative (Negative); BLOOD Negative (Negative); CLARITY Clear (Clear); COLOR Yellow (Yellow); KETONE Negative (Negative); LEUKO ESTERASE Negative (Negative); NITRITE Negative (Negative); PH 5.5 (4.5-8.0); SPECIFIC GRAVITY 1.025 (1.001-1.030); UROBILINOGEN 0.2 E.U./dl (0.0-1.0)
[2025-06-01 08:07] LABS: BACTERIA TRACE
[2025-06-01 08:08] LABS: YEAST TRACE
[2025-06-01 08:20] LABS: BUN 23.0 mg/dl (9-23)
== END | disposition home or self-care (01) ==
LOC: LAB 07:01
PROVIDERS: ATTEND Nurse Practitioner Family
DX: R80.9 Proteinuria, unspecified (principal); N18.30 Chronic kidney disease, stage 3 unspecified

== ENCOUNTER → 2025-06-09 | Outpatient (CLI) | payer OTHER ==
[2025-06-09 08:29] LABS: BILIRUBIN Negative (Negative); BLOOD Negative (Negative); CLARITY Clear (Clear); COLOR Yellow (Yellow); KETONE Negative (Negative); LEUKO ESTERASE Trace (Negative); NITRITE Negative (Negative); PH 5.0 (4.5-8.0); SPECIFIC GRAVITY 1.010 (1.001-1.030); UROBILINOGEN 0.2 E.U./dl (0.0-1.0)
[2025-06-09 09:15] LABS: BUN 28 mg/dl (9-23); LDL CHOLESTEROL 37 mg/dL (9-159)
[2025-06-09 09:30] LABS: SGPT/ALT < 7 U/L (5-49)
[2025-06-09 10:23] LABS: VITAMIN D, 25-HYDROXY 60.0 ng/mL (30-100)
[2025-06-09 10:30] LABS: BACTERIA TRACE; YEAST 1+
== END | disposition home or self-care (01) ==
LOC: LAB 07:22
PROVIDERS: ATTEND Internal Medicine
DX: E11.65 Type 2 diabetes mellitus with hyperglycemia (principal); E11.40 Type 2 diabetes mellitus with diabetic neuropathy, unspecified; E29.1 Testicular hypofunction; N40.0 Benign prostatic hyperplasia without lower urinary tract symptoms; E55.9 Vitamin D deficiency, unspecified

== ENCOUNTER → 2025-07-09 | Outpatient (CLI) | payer OTHER ==
[2025-07-09 17:07] LABS: BASO # 0.0 10*3/uL (0.0-0.1); BASO % 0.1 % (0.0-1.0); EOS # 0.0 10*3/uL (0.0-0.4); EOS % 0.0 % (1.0-4.0); MEAN CELL VOLUME 87.4 fl (80.0-94.0); MEAN CORPUSCULAR HGB 26.2 pg (27.0-31.0); MEAN PLATELET VOLUME 10.3 fl (9.6-12.3); MONO # 1.0 10*3/uL (0.1-1.0); MONO % 9.2 % (3.0-9.0); NEUT # 7.6 10*3/uL (2.3-7.9); NEUT % 72.7 % (47.0-73.0); NUCLEATED RED BLOOD CELL 0.0 % (0.0-0.0); NUCLEATED RED BLOOD CELL 0.0 10*3/uL (0.0-0.0); PLATELET COUNT AUTOMATED 259 10*3/uL (130-400); RED CELL DISTRI WIDTH 17.4 % (0-14.5)
[2025-07-09 17:28] LABS: BUN 23.0 mg/dl (9-23); SGPT/ALT 8.0 U/L (5-49)
== END | disposition home or self-care (01) ==
LOC: RHCWE 12:06
PROVIDERS: ATTEND Nurse Practitioner Family
DX: Z01.812 Encounter for preprocedural laboratory examination (principal); I10 Essential (primary) hypertension; E11.65 Type 2 diabetes mellitus with hyperglycemia; L98.9 Disorder of the skin and subcutaneous tissue, unspecified